=== PATIENT | male | born 1960 | race Caucasian/White ===

== ENCOUNTER 2019-12-28 13:31 | Outpatient (CLI) | payer OTHER, SELFPAY ==
--- NOTE | ~2019-12-28 | XR_ITS ---
EXAMINATION: XR knee LT min 4V DATE: 12/28/2019 14:09 INDICATION: Left knee pain. TECHNIQUE: 4 views of left knee were obtained. COMPARISON: Left knee radiographs 12/23/2016 FINDINGS: There is varus angulation at the knee. There is lateral subluxation of patella. No fracture . There is severe osteoarthritis of medial compartment and mild osteoarthritis of lateral and patello femoral compartments. There is a small knee joint effusion. IMPRESSION: 1. Severe left knee osteoarthritis. 2. Small left knee joint effusion. Reviewed, dictated and finalized at location A. 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
--- NOTE | ~2019-12-28 | XR_ITS ---
EXAMINATION: XR knee RT min 4V DATE: 12/28/2019 14:10 INDICATION: Right knee pain. TECHNIQUE: 4 views of right knee were obtained. COMPARISON: Right knee radiographs 07/10/2016 FINDINGS: There is varus angulation at the knee. There is lateral subluxation of patella. No fracture . There is severe osteoarthritis of medial compartment and mild osteoarthritis of lateral and patello femoral compartments. No knee joint effusion. IMPRESSION: 1. Severe right knee osteoarthritis. Reviewed, dictated and finalized at location A. RVISOR INSPECTION
== END 2019-12-28 13:32 | disposition home or self-care (01) ==
LOC: CHSIMG 13:34
PROVIDERS: PCP Internal Medicine; Visit Provider Internal Medicine
DX: M25.562 Pain in left knee (principal); M25.561 Pain in right knee
CPT/HCPCS: 73564

== ENCOUNTER 2020-01-15 16:50 | Emergency (ER) | payer OTHER, SELFPAY ==
--- NOTE | ~2020-01-15 | CT_ITS ---
EXAMINATION: CT brain wo con DATE: 01/15/2020 17:33 INDICATION: Head injury with loss of consciousness TECHNIQUE: Computed tomography (CT) of the head was performed without intravenous contrast. Sagittal and coronal reconstructions were performed. The mA was adjusted according to patient size. Iterative reconstruction technique was employed. The dose-length product was 605.33 mGy-cm. COMPARISON: head CT dated 04/11/2017 FINDINGS: Large right frontal temporal scalp hematoma with associated laceration along its anterior margin and small amount of gas in the soft tissues. No fracture. No acute intracranial hemorrhage, acute infarct ion or abnormal extra axial fluid collection. Ventricles are normal and symmetric. No mass/mass effec t. The orbits, paranasal sinuses and mastoid air cells are normal. IMPRESSION: 1. Right frontal temporal scalp laceration and large scalp hematoma. 2. No calvarial fracture or acute intracranial process. Reviewed, dictated and finalized at location A. 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
--- NOTE | 2020-01-15 17:04 | ED.HEATRA ---
HPI - Head Injury General Chief complaint: Wound/Laceration Stated complaint: Head laceration Time Seen by Provider: 01/15/20 17:04 Source: patient and family Mode of arrival: ambulatory Limitations: no limitations History of Present Illness HPI Narrative: 59-year-old man comes in today complaining of a laceration on the right side of his scalp that occurred after he fell this morning and struck his head on a cabinet. He states that happened between 6 and 8:00 a.m. any loss consciousness. The fall was unwitnessed. He has had no nausea, vomiting, changes in his vision, difficulty walking, or change in speech since his injury. MD Complaint: head injury Onset (ago): hour(s) (10) Mechanism of Injury: fall Place: home Loss of Consciousness: yes Location of injury: parietal and temporal Severity: moderate Quality: sharp Radiation: none Other Injuries: laceration Context: recent alcohol use Associated symptoms: denies other symptoms Related Data Home Medications Medication Instructions Recorded Confirmed lisinopril-hydrochlorothiazide 0.5 tablet PO HS 01/15/20 01/15/20 lisinopril-hydrochlorothiazide 1 tablet PO QAM 01/15/20 01/15/20 meloxicam 15 mg PO DAILY 01/15/20 01/15/20 potassium chloride [Klor-Con M20] 60 meq PO DAILY 01/15/20 01/15/20 rosuvastatin 20 mg PO DAILY 01/15/20 01/15/20 Allergies Allergy/AdvReac Type Severity Reaction Status Date / Time No Known Allergies Allergy Verified 01/15/20 17:30 Review of Systems Constitutional: Constitutional: Denies chills, Denies fatigue, Denies fever(s) and Denies weakness ENT: Denies dysphagia, Denies nasal congestion and Denies sore throat Cardiovascular: Cardiovascular: Denies chest pain and Denies radiating jaw, neck or arm pain Respiratory: Respiratory: Denies cough, Denies dyspnea and Denies wheezing Gastrointestinal: Gastrointestinal: Denies abdominal pain, Denies nausea and Denies vomiting Integumentary/Breasts: Skin/Breast: Denies pruritus, Denies erythema and Denies rash Neurologic: Denies confusion, Denies vertigo, Denies dizziness, Denies syncope, Denies numbness and Denies weakness Psychiatric: Psychiatric: Denies anxiety and Denies depression Hematologic/Lymphatic: Hematologic/Lymphatic: Denies easy bleeding and Denies easy bruising Allergic/Immunologic: Allergic/Immunologic: Denies lip swelling and Denies wheezing PMF Past Medical History Medical History Dyslipidemia Hypertension Surgical History Surgical History History of total left hip arthroplasty S/P left knee arthroscopy Social History Social History Smoking status: Never smoker Alcohol intake: current Alcohol use details: Drank a few beers last night Substance use: never Living arrangements: with family Exam Const: General: no acute distress and alert Nutritional Appearance: obese Orientation/consciousness: patient oriented x3 Limitations: no limitations HENMT: Ears: TM's normal bilaterally and EAC's normal Mouth: Yes moist mucous membranes Throat: posterior oropharynx normal Eyes: Conjunctivae: conjunctivae normal Pupils: Equal, round and reactive pupils present EOM: EOMs intact bilaterally Direct Ophthalmoscopy: No photophobia Neck: Other: Nontender, NROM Resp: Effort & Inspection: normal respiratory effort and not labored Auscultation: clear to auscultation bilaterally, no rales, no rhonchi and no wheezes Cardio: Rate: regular rate Rhythm: regular rhythm Heart sounds: no murmurs GI: GI Palp: Yes Soft to palpation and No Tenderness to palpation present (GI) Skin: General skin exam: normal color, no jaundice and no pallor Rashes: no rashes Other: 9 cm arcuate full thickness laceration over the right synagogue. Consideral swelling inferior to the laceration, up to 2 cm thick. Mildy t
[2020-01-15 17:25] VITALS: BP 142/86; PULSE 104; RESP 18; TEMP 37.1; O2SAT 96
[2020-01-15] MEDS: TETANUS,DIPHTHERIA,AC PERTUSSIS ADULT 0.5 ML (ADACEL) IM (17:40)
[2020-01-15 18:21] VITALS: BP 138/94; PULSE 85; RESP 16; O2SAT 96
== END 2020-01-15 18:21 | disposition home or self-care (01) ==
PROVIDERS: Emergency Provider Emergency Medicine; PCP Internal Medicine
DX: S06.9X9A Unspecified intracranial injury with loss of consciousness of unspecified duration, initial encounter (principal); S01.01XA Laceration without foreign body of scalp, initial encounter; W18.30XA Fall on same level, unspecified, initial encounter
CPT/HCPCS: 12004; 70450; 90471; 90715; 99282; 99284

== ENCOUNTER 2020-05-17 13:01 | Outpatient (RCR) | payer OTHER, SELFPAY ==
--- NOTE | 2020-05-17 13:45 | PTOPEVAL ---
Thank you for referring Chaparro Bwoen to [facility]. Please review, sign, date and return this plan of care KHADRA. I agree with and certify that the following plan of care is medically necessary. Referring Physician Date Admitting Provider: Attending Provider: PHYSICIAN NOT ON STAFF Referring Provider: *PT Outpatient Evaluation Start: 05/17/20 13:00 Freq: Status: Active Protocol: Document 05/17/20 13:00 [facility] (Rec: 05/17/20 13:24 [facility] [id number]) Therapy Assessment Status Assessment Status Assessment Status Evaluation Outpatient Past Medical History Cardiovascular History Hx Hypercholesterolemia Yes Hx Hypertension Yes Musculoskeletal History Hx Joint Replacement Yes: left hip Hx Orthopedic Surgery Yes Evaluation Information Problem Diagnosis s/p L TKA Onset 04/20/20 Additional Evaluation Detail LEFS = 22% functionally declined Subjective Information patient reports he underwent L Query Text:As Reported By Patient/ knee replacement on 04/20/20. Family he reports he did this due to pain and arthritis affecting his daily activities such as walking and work. he reports he is having the R knee replaced next. he reports he has no date set yet. Prior Level of Function Comments Additional Prior Level of Function patient reports he was limping Comments prior to surgery. he reports he was off from work for several months prior to surgery due to pain in the knees. he reports he is planning to get back to work after both knees are replaced. Pain Assessment Timing of Pain Assessment Timing of Pain Assessment Assessment Pain Scale Pain Scale Used Numeric (1 - 10) Self Report Pain Assessment Left Knee(s) Reported Pain Level 3 Pain Description Aching,Sharp Lowest Pain Intensity 2 Greatest Pain Intensity 9 Pain Aggravating Factors Exercise/Activity,Walking Pain Score Pain Score 3: Self Report Lower Extremity Range of Motion Knee Range of Motion Left Knee Flexion Range of Motion - Active 78 Knee Extension Range of Motion - Active -10 Query Text: Right Knee Flexion Range of Motion - Active 110 Knee Extension Range of Motion - Active 0 Query Text: Lower Extremity Muscle Strength Testing Hip Strength Left
--- NOTE | 2020-06-15 09:51 | PTOPEVAL ---
Thank you for referring Chaparro Bowen to [facility]. Please review, sign, date and return this plan of care KHADRA. I agree with and certify that the following plan of care is medically necessary. Referring Physician Date Admitting Provider: Attending Provider: PHYSICIAN NOT ON STAFF Referring Provider: *PT Outpatient Evaluation Start: 05/17/20 13:00 Freq: Status: Active Protocol: Document 06/15/20 09:11 [facility] (Rec: 06/15/20 09:35 [facility] [id number]) Therapy Assessment Status Assessment Status Assessment Status Discharge Outpatient Past Medical History Cardiovascular History Hx Hypercholesterolemia Yes Hx Hypertension Yes Musculoskeletal History Hx Joint Replacement Yes: left hip Hx Orthopedic Surgery Yes Evaluation Information Problem Diagnosis s/p left TKA Onset 04/20/20 Subjective Information Pt. reports that he has Query Text:As Reported By Patient/ returned to driving. He Family states that pain is minimal and only really notes pain with bending the knee during exercise. He states that he will undergo right TKA in July. He states that he will continue with exercise and is ready for discharge. Pain Assessment Pain Scale Pain Scale Used Numeric (1 - 10) Self Report Pain Assessment Left Knee(s) Reported Pain Level 1 Lowest Pain Intensity 1 Greatest Pain Intensity 2 Pain Score Pain Score 1: Self Report Lower Extremity Range of Motion General Lower Extremity Range of Motion Gross Lower Extremity Range of Motion left knee AROM=0-115 Comments left knee AAROM=0-120 Lower Extremity Muscle Strength Testing General Lower Extremity Strength Gross Lower Extremity Strength bilateral hip flexion 5/5, bilateral knee flexion 5/5, bilateral knee extension 5/5, bilateral ankle dorsiflexion 5 /5 Gait Assessment Gait Assessment Additional Ambulation Comments Pt. ambulates indpendently over level surface with equal right and left stance time noted. Stair Climbing Assessment Stair Climbing Assessment Stair Climbing Comments Pt. is able to navigate steps with reciprical pattern, with slight hesitation on the right . PT Clinical Summary Clinical Summary Protocol: PTEV
== END 2020-06-15 10:28 | disposition home or self-care (01) ==
LOC: CHSPT 13:01
PROVIDERS: PCP Internal Medicine
DX: Z96.652 Presence of left artificial knee joint (principal)
CPT/HCPCS: 97016; 97110; 97140; 97161

== ENCOUNTER 2020-07-25 07:36 | Outpatient (RCR) | payer OTHER, SELFPAY ==
--- NOTE | 2020-07-25 09:25 | PTOPEVAL ---
Thank you for referring Chaparro Bowen to [facility].? The patient is scheduled to be seen for therapy? ____x/week for ___ weeks. Please review, sign, date and return this plan of care KHADRA. I agree with and certify that the following plan of care is medically necessary. Referring Physician Date Admitting Provider: Attending Provider: PHYSICIAN NOT ON STAFF Referring Provider: *PT Outpatient Evaluation Start: 07/25/20 08:01 Freq: Status: Active Protocol: Document 07/25/20 08:00 [facility] (Rec: 07/25/20 08:55 [facility] [id number]) Therapy Assessment Status Assessment Status Assessment Status Evaluation Outpatient Past Medical History Cardiovascular History Hx Hypercholesterolemia Yes Hx Hypertension Yes Musculoskeletal History Hx Joint Replacement Yes: left hip Hx Orthopedic Surgery Yes Evaluation Information Problem Diagnosis right TKA Onset 07/18/20 Subjective Information Pt. reports that he underwent Query Text:As Reported By Patient/ TKA on 07/18/20. He states that Family this replacement has been more painful. He states that he is having trouble sleeping at night. He states that he is using his walker and is not driving. He reports that his goal is to regain normal right l.e. function. 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 Right Activity of Daily Living Ability Independent Indoor/Home Mobility Independent Community Mobility Independent Stairs Ability Independent Functional Cognition (Planning, Shopping Independent , Taking Medications) Cooking Yes Cleaning Yes Laundry Yes Shopping Yes Driving Yes Pain Assessment Pain Scale Pain Scale Used Numeric (1 - 10) Self Report Pain Assessment Right Knee(s) Reported Pain Level 7 Pain Score Pain Score 7: Self Report Lower Extremity Range of Motion General Lower Extremity Range of Motion Gross Lower Extremity Range of Motion right knee AROM= 6-77 degrees Comments left knee AROM= 0-115 degrees Lower Extremity Muscle Strength Testing General Lower Extremity Strength Gross Lower Extremity Strength right hip flexion 4/5, left hip flexion 5/5, right knee flexion 3+/5, left knee flexion 5/5, right knee
--- NOTE | 2020-08-18 08:54 | PTOPEVAL ---
Thank you for referring Chaparro Bowen to [facility].? The patient is scheduled to be seen for therapy? _2___x/week for 6 visits. Please review, sign, date and return this plan of care KHADRA. I agree with and certify that the following plan of care is medically necessary. Referring Physician Date Admitting Provider: Attending Provider: PHYSICIAN NOT ON STAFF Referring Provider: *PT Outpatient Evaluation Start: 07/25/20 08:01 Freq: Status: Active Protocol: Document 08/18/20 07:36 [facility] (Rec: 08/18/20 08:53 [facility] [id number]) Therapy Assessment Status Assessment Status Assessment Status Progress Outpatient Past Medical History Cardiovascular History Hx Hypercholesterolemia Yes Hx Hypertension Yes Musculoskeletal History Hx Joint Replacement Yes: left hip Hx Orthopedic Surgery Yes Evaluation Information Problem Diagnosis right TKA Onset 07/18/20 Subjective Information Pt. reports that he is walking Query Text:As Reported By Patient/ without an AD. He has Family returned to driving. He states that he still notes stiffness in the right knee. He reports he still notes difficulty with long periods of standing and squatting activities. He reports that he would like to continue with PT in order to improve his ability to bend the knee. Pain Assessment Pain Scale Pain Scale Used Numeric (1 - 10) Self Report Pain Assessment Right Knee(s) Reported Pain Level 3 Pain Score Pain Score 3: Self Report Lower Extremity Range of Motion General Lower Extremity Range of Motion Gross Lower Extremity Range of Motion right knee AROM 0-107 Comments Extremity Circumference Assessment Circumference Assessment Location Right Body Part Knee Site Descriptor (Ursina) joint line Circumference (cm) 48 Gait Assessment Gait Assessment Additional Ambulation Comments Pt. ambulates without an AD demonstrating slightly decreased right stance time with slight right trendelenburg. Stair Climbing Assessment Stair Climbing Assessment Stair Climbing Comments Pt. ascends steps with reciprical pattern, however descending steps remains difficult due to trouble with
== END 2020-09-11 13:23 | disposition home or self-care (01) ==
LOC: CHSPT 07:36
PROVIDERS: PCP Internal Medicine
DX: Z47.1 Aftercare following joint replacement surgery (principal); Z96.651 Presence of right artificial knee joint
CPT/HCPCS: 97014; 97016; 97110; 97161; G0283

== ENCOUNTER 2020-11-10 09:13 | Emergency (ER) | payer OTHER, SELFPAY ==
[2020-11-10 09:20] VITALS: BP 128/74; PULSE 80; RESP 20; TEMP 36.3; O2SAT 98
--- NOTE | 2020-11-10 09:29 | ED_ITS ---
HPI - Wound/Laceration General Chief Complaint: Wound/Laceration Stated Complaint: laceration on finger Time Seen by Provider: 11/10/20 09:25 Source: patient and family Mode of arrival: ambulatory Limitations: no limitations Related Data Home Medications Medication Instructions Recorded Confirmed lisinopril-hydrochlorothiazide 0.5 tablet PO HS 01/15/20 01/15/20 lisinopril-hydrochlorothiazide 1 tablet PO QAM 01/15/20 01/15/20 meloxicam 15 mg PO DAILY 01/15/20 01/15/20 potassium chloride [Klor-Con M20] 60 meq PO DAILY 01/15/20 01/15/20 rosuvastatin 20 mg PO DAILY 01/15/20 01/15/20 Allergies Allergy/AdvReac Type Severity Reaction Status Date / Time No Known Allergies Allergy Verified 01/15/20 17:30 [facility] Past Medical History Medical History Dyslipidemia Hypertension Surgical History Surgical History History of total left hip arthroplasty S/P left knee arthroscopy Social History Social History Smoking status: Never smoker Alcohol intake: current Substance use: never Course Vital Signs Vital signs: Vital Signs Temperature 36.3 C L 11/10/20 09:20 Pulse Rate 80 11/10/20 09:20 Respiratory Rate 20 11/10/20 09:20 Blood Pressure 128/74 11/10/20 09:20 Pulse Oximetry 98 11/10/20 09:20 Temperature 36.3 C L 11/10/20 10:32 Pulse Rate 80 11/10/20 10:32 Respiratory Rate 20 11/10/20 10:32 Blood Pressure 130/75 11/10/20 10:32 Pulse Oximetry 98 11/10/20 10:32 Procedures Laceration laceration to left posterior thumb: Date: 11/10/20 Time: 09:30 Side (If applicable): left Size (cm): 2 Description: linear and clean Depth: simple, single layer Local Anesthetic: lidocaine 1% Amount of anesthesia used (mL): 6 ====== Skin Level ====== Skin layer closed with: nylon Size (cm): 4-0 Technique: simple, interrupted ====== Subcutaneous Layer ====== Subcutaneous layer closed with: vicryl Size: 4-0 Number of sutures: 6 Technique: simple, interrupted ====== Muscle Layer ====== ====== Tendon Layer ====== Dressing: Wound was pretty superficial and required only a one layer closure. Discharge Plan Discharge Clinical Impression: Laceration Patient Disposition: Home, Self-Care Condition: Stable Instructions: Antibiotic Form Additional Instructions: Follow up with family doctor in 10 days for suture removal Prescriptions: No Action meloxicam 15 mg tablet 15 mg PO DAILY RF: 0 potassium chloride [Klor-Con M20] 20 mEq tablet,ER particles/crystals 60 meq PO DAILY RF: 0 lisinopril-hydrochlorothiazide 20-25 mg tablet 1 tablet PO QAM RF: 0 lisinopril-hydrochlorothiazide 20-25 mg tablet 0.5 tablet PO HS RF: 0 rosuvastatin 20 mg tablet 20 mg PO DAILY RF: 0 Follow-up/Referrals: Ninfa Farmer MD [Primary Care Provider] - Time of Disposition: 09:30
[2020-11-10] MEDS: LIDOCAINE HCL 1% LOCAL INJ 20 ML VIAL 6 ML INFILTRATE (10:31)
[2020-11-10 10:32] VITALS: BP 130/75; PULSE 80; RESP 20; TEMP 36.3; O2SAT 98
[2020-11-10] MEDS: NEOMYCIN/POLYMYXIN/BACITRACIN OINTMENT PACKET 1 PACKET (10:32)
== END 2020-11-10 10:40 | disposition home or self-care (01) ==
PROVIDERS: Emergency Provider Emergency Medicine; PCP Internal Medicine
DX: S61.012A Laceration without foreign body of left thumb without damage to nail, initial encounter (principal); E78.5 Hyperlipidemia, unspecified; I10 Essential (primary) hypertension; W26.0XXA Contact with knife, initial encounter; Z96.642 Presence of left artificial hip joint
CPT/HCPCS: 12001; 12041; 99282

== ENCOUNTER 2022-08-12 14:16 | Outpatient (CLI) | payer OTHER, SELFPAY ==
--- NOTE | ~2022-08-12 | XR_ITS ---
EXAMINATION: XR chest 2V 08/12/2022 14:40 INDICATION: Chest congestion PROCEDURE: 2 view chest COMPARISON: 01/19/2018 FINDINGS: The lungs are clear. The cardiomediastinal silhouette is within normal limits. There are no pleural effusions. There is no pneumothorax suspected. IMPRESSION: 1: NO ACUTE CARDIOPULMONARY DISEASE. Reviewed, dictated and finalized at location B.
[2022-08-12 14:31] LABS: Basophils Absolute Auto 0.06 K/mm3 (0.00-0.10); Basophils Percent Auto 0.5 % (0.0-1.0); Eosinophils Absolute Auto 0.05 K/mm3 (0.02-0.50); Eosinophils Percent Auto 0.4 % (1.0-6.0); Hematocrit 46.3 % (40.0-54.0); Hemoglobin 15.3 g/dL (14.0-18.0); Immature Granulocyte Absolute 0.14 K/mm3 (0.00-0.00); Immature Granulocyte Percent A 1.1 % (0.0-0.0); Lymphocytes Absolute Auto 2.87 K/mm3 (1.10-4.50); Lymphocytes Percent Auto 21.9 % (18.0-42.0); Mean Corpuscular Hemoglobin 27.9 pg (27.0-31.0); Mean Corpuscular Volume 84.5 fL (78.0-102.0); Mean Platelet Volume 10.2 fl (8.7-11.0); Monocytes Percent Auto 6.1 % (2.0-11.0); Neutrophils Absolute Auto 9.2 K/mm3 (1.7-7.2); Platelet Count Result 211 K/mm3 (150-420); Red Blood Count 5.48 M/mm3 (4.70-6.10); Red Cell Distribution Width 13.2 % (11.6-14.4); White Blood Count 13.1 K/mm3 (4.8-10.8)
== END 2022-08-12 14:17 | disposition home or self-care (01) ==
LOC: CHSLAB 14:18
PROVIDERS: PCP Internal Medicine; Visit Provider Internal Medicine
DX: R09.81 Nasal congestion (principal); R09.89 Other specified symptoms and signs involving the circulatory and respiratory systems
CPT/HCPCS: 36415; 71046; 85025

== ENCOUNTER 2023-07-17 13:53 | Outpatient (CLI) | payer OTHER, SELFPAY ==
--- NOTE | ~2023-07-17 | XR_ITS ---
EXAMINATION: XR chest 2V DATE: 07/17/2023 14:14 INDICATION: Cough and congestion TECHNIQUE: PA and lateral views of the chest were obtained. COMPARISON: Chest radiograph dated 08/12/2022 FINDINGS: The lungs remain clear with no focal airspace opacities, pulmonary edema, pleural effusion or pneumot horax. The cardiomediastinal silhouette is normal. Mild thoracic spondylosis. IMPRESSION: 1. No acute cardiopulmonary disease. Reviewed, dictated and finalized at location A.
[2023-07-17 14:07] LABS: Basophils Absolute Auto 0.04 K/mm3 (0.00-0.10); Basophils Percent Auto 0.3 % (0.0-1.0); Eosinophils Absolute Auto 0.04 K/mm3 (0.02-0.50); Eosinophils Percent Auto 0.3 % (1.0-6.0); Hematocrit 43.4 % (40.0-54.0); Hemoglobin 15.2 g/dL (14.0-18.0); Immature Granulocyte Percent A 0.8 % (0.0-0.0); Lymphocytes Absolute Auto 2.74 K/mm3 (1.10-4.50); Lymphocytes Percent Auto 21.8 % (18.0-42.0); Mean Corpuscular Hemoglobin 30.2 pg (27.0-31.0); Mean Corpuscular Volume 86.3 fL (78.0-102.0); Mean Platelet Volume 10.5 fl (8.7-11.0); Monocytes Absolute Auto 0.77 K/mm3 (0.10-0.90); Monocytes Percent Auto 6.1 % (2.0-11.0); Neutrophils Absolute Auto 8.9 K/mm3 (1.7-7.2); Neutrophils Percent Auto 70.7 % (50.0-70.0); Platelet Count Result 203 K/mm3 (150-420); Red Blood Count 5.03 M/mm3 (4.70-6.10); White Blood Count 12.6 K/mm3 (4.8-10.8)
== END 2023-07-17 13:54 | disposition home or self-care (01) ==
LOC: CHSLAB 13:54
PROVIDERS: PCP Internal Medicine; Visit Provider Internal Medicine
DX: R05.9 Cough, unspecified (principal); R09.81 Nasal congestion
CPT/HCPCS: 36415; 71046; 85025

== ENCOUNTER 2023-07-23 11:16 | Outpatient (CLI) | payer OTHER, SELFPAY ==
--- NOTE | ~2023-07-23 | XR_ITS ---
EXAMINATION: XR chest 2V DATE: 07/23/2023 11:37 INDICATION: Shortness of breath TECHNIQUE: Frontal and lateral views of the chest are obtained COMPARISON: 07/17/2023 FINDINGS: A nodule projects along the anterior margin of the upper thoracic spine on the lateral view , possibly the right upper lobe. No pleural effusion or pneumothorax. The cardiomediastinal silhouett e is normal. There is mild thoracic spondylosis. IMPRESSION: 1. Possible right upper lobe nodule. Further evaluation with CT of the chest is recommended. Reviewed, dictated and finalized at location B.
[2023-07-23 11:32] LABS: Basophils Absolute Auto 0.08 K/mm3 (0.00-0.10); Basophils Percent Auto 0.6 % (0.0-1.0); Eosinophils Absolute Auto 0.13 K/mm3 (0.02-0.50); Hematocrit 43.2 % (40.0-54.0); Hemoglobin 14.9 g/dL (14.0-18.0); Immature Granulocyte Absolute 0.24 K/mm3 (0.00-0.00); Immature Granulocyte Percent A 1.9 % (0.0-0.0); Lymphocytes Absolute Auto 4.64 K/mm3 (1.10-4.50); Lymphocytes Percent Auto 37.3 % (18.0-42.0); Mean Corpuscular HGB Conc 34.5 g/dL (32.0-36.0); Mean Corpuscular Volume 86.9 fL (78.0-102.0); Mean Platelet Volume 10.4 fl (8.7-11.0); Monocytes Absolute Auto 0.84 K/mm3 (0.10-0.90); Monocytes Percent Auto 6.8 % (2.0-11.0); Neutrophils Absolute Auto 6.5 K/mm3 (1.7-7.2); Neutrophils Percent Auto 52.4 % (50.0-70.0); Platelet Count Result 185 K/mm3 (150-420); Red Blood Count 4.97 M/mm3 (4.70-6.10); White Blood Count 12.4 K/mm3 (4.8-10.8)
[2023-07-23 11:44] LABS: D Dimer 0.22 mg/L (0.19-0.50)
[2023-07-23 11:53] LABS: Alanine Aminotransferase 20 U/L (16-63); Albumin Level 3.5 g/dL (3.4-5.0); Alkaline Phosphatase 70 U/L (46-116); Anion Gap 5 mmol/L (8-16); Aspartate Amino Transferase 17 U/L (15-37); Bilirubin,Total 0.6 mg/dL (0.00-1.00); Blood Urea Nitrogen 23 mg/dL (7-18); Calcium 9.6 mg/dL (8.5-10.1); Carbon Dioxide 31 mmol/L (21-32); Chloride 102 mmol/L (98-108); Estimated Glomerular Filt Rate > 60; Glucose 108 mg/dL (70-99); NT Pro B Type Natriuretic Pept 66 pg/mL (0-125); Osmolality Calculated 290 mOsm/kg (285-295); Potassium 3.7 mmol/L (3.5-5.1); Sodium 138 mmol/L (136-145); Total Protein 7.1 g/dL (6.4-8.2)
[2023-07-23 12:10] LABS: Influenza A QL RT-PCR Negative (Negative); Influenza B QL RT-PCR Negative (Negative); SARS-CoV-2 RNA PCR Negative (Negative)
== END 2023-07-23 11:17 | disposition home or self-care (01) ==
LOC: CHSLAB 11:17
PROVIDERS: PCP Internal Medicine; Visit Provider Internal Medicine
DX: R06.00 Dyspnea, unspecified (principal); R06.2 Wheezing; R05.9 Cough, unspecified; R91.8 Other nonspecific abnormal finding of lung field
CPT/HCPCS: 36415; 71046; 80053; 83880; 85025; 85380; 87636

== ENCOUNTER 2023-07-28 10:20 | Outpatient (CLI) | payer OTHER, SELFPAY ==
--- NOTE | ~2023-07-28 | CT_ITS ---
EXAMINATION:CT diagnostic chest wo con DATE: 07/28/2023 10:34 INDICATION: Pulmonary nodule. Cough. Dyspnea on exertion. TECHNIQUE: Computed tomography (CT) of the chest was performed without intravenous contrast. Automate d exposure control and iterative reconstruction technique were employed. The dose-length product (DLP ) was 405.14 mGy-cm. COMPARISON: Chest 2 views 07/23/2023 FINDINGS: The lungs demonstrate mild atelectasis. No pleural effusion. The heart size is normal. Ther e are coronary artery calcifications. No pericardial effusion. There is mild bilateral gynecomastia. Calcifications in the spleen are consistent with old granulomatous disease. There are bridging endpla te osteophytes at multiple levels in the spine, consistent with diffuse idiopathic skeletal hyperosto sis (DISH). Prominent spine osteophytes correlate with the chest radiograph finding. IMPRESSION: 1. No pulmonary nodule. Prominent spine osteophytes correlate with the chest radiograph finding. Reviewed, dictated and finalized at location A. IMPRESSION: 1. No pulmonary nodule. Prominent spine osteophytes correlate with the chest ra diograph finding.
== END 2023-07-28 10:21 | disposition home or self-care (01) ==
LOC: CHSIMG 10:21
PROVIDERS: PCP Internal Medicine; Visit Provider Internal Medicine
DX: R91.1 Solitary pulmonary nodule (principal)
CPT/HCPCS: 71250

== ENCOUNTER 2023-08-14 12:49 | Outpatient (CLI) | payer OTHER, SELFPAY ==
--- NOTE | ~2023-08-14 | CT_ITS ---
EXAMINATION: CT sinus wo con DATE: 08/14/2023 13:13 INDICATION: Chronic sinusitis TECHNIQUE: Computed tomography (CT) of the paranasal sinuses was performed without intravenous contra st. The dose-length product was 253.85 mGy-cm. Automated exposure control and iterative reconstructio n technique were employed. COMPARISON: CT dated 01/15/2020 FINDINGS: There is a mucous retention cyst of the right maxillary antrum. No significant mucosal thic kening. Rightward nasal septal deviation. No air-fluid levels. No mucoperiosteal reaction. Mastoids a re pneumatized. IMPRESSION: 1. Small mucous retention cyst right maxillary sinus measuring 1.3 cm. Reviewed, dictated and finalized at location L.
== END 2023-08-14 12:50 | disposition home or self-care (01) ==
LOC: CHSIMG 12:51
PROVIDERS: PCP Internal Medicine; Visit Provider Internal Medicine
DX: J32.9 Chronic sinusitis, unspecified (principal); J34.1 Cyst and mucocele of nose and nasal sinus
CPT/HCPCS: 70486

== ENCOUNTER 2024-03-01 13:01 | Outpatient (RCR) | payer OTHER, SELFPAY ==
--- NOTE | 2024-03-01 13:42 | PTOPEVAL1 ---
Assessment and note entered by Cole Martinez Evaluation Information Assessment Status Evaluation Diagnosis bilateral knee stiffness, imbalance Onset 02/24/24 Subjective Information Pt. reports that he has noticed a recent decline in his balance. He states that he underwent bilateral knee replacement with the last being in July of 2020. He states that he has noticed an inability to get himself off of the floor. He reports that he spends most of the day sitting, but does try to get 6000 steps in daily, and is currently doing so 4-5 days per week. He states that as of 1 year ago he was able to get 6000 step in everyday. He states that he has not had any falls. 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 He reports that he has noticed a feeling of imbalance with changing direction while walking. He reports that he continues to complete his own housework and yardwork despite the unsteadiness. He reports that he is noticing increasing stiffness in the knees as well, and cannot bend down. He reports that his goal for therapy is to improve his balance and improve his knee mobility. Reported Pain Level Pain Score 0: Self Report Assessment PT Clinical Summary Pt. is a 63 year old male who enters the clinic with a diagnosis of bilateral knee stiffness and impaired balance. He presents with impaired proximal l.e. strength, impaired bilateral knee ROM, impaired somatosensory condition and functional decline. Continued skilled PT is indicated in order to improve these areas to allow for improve efficiency and comfort with IADL performance. Plan of Care Interventions Electrical Stimulation,Gait Training,Hot Pack/Cold Pack,Manual Therapy,Neuro Re-education,Patient/ Caregiver Educati,Therapeutic Activities, Therapeutic Exercise PT Services Indicated Yes Treatment Frequency and 2x/week x 10 visits Duration These treatments will address the objective and functional deficits as defined above. The patient will be advanced safely and appropriately in order for the patient to progress towards his/her prior level of function. Additional exercises will be introduced and as well as a comprehensive home exercise program upon discharge, if needed, ?to ensure carryover of functional gains achieved in the clinic. This treatment plan has been reviewed and agreement upon by the patient.
--- NOTE | 2024-03-01 14:09 | OPREHPOC ---
Outpatient Therapy Plan of Care This is a Multidisciplinary Plan of Care that may contain components documented by all disciplines (PT, OT, and ST.) PT Problem 1 PT Problem #1 Knowledge Deficit PT Goal 1 Goal Independent with a HEP addressing strength and mobility sikh Target Visit 2 PT Problem 2 PT Problem #2 Impaired Range of Motion PT Goal 1 Goal -Pt. will demonstrates 120 degrees left knee flexion -Pt. will demonstrates 110 degrees right knee flexion active ROM in order to get on/off the floor. Target Visit 10 PT Problem 3 PT Problem #3 Impaired Strength PT Goal 1 Goal Pt. will present with 5/5 proximal l.e. strength Target Visit 10 PT Problem 4 PT Problem #4 Impaired Functional Mobil PT Goal 1 Goal Pt. will be able to lift 10-20# object from floor to waist with proper mechanics x 10 reps Complete the 5 time sit to stand test in 11 seconds or less indicating improve mobility Target Visit 10
--- NOTE | 2024-04-02 12:31 | OPREHPOC ---
Outpatient Therapy Plan of Care This is a Multidisciplinary Plan of Care that may contain components documented by all disciplines (PT, OT, and ST.) PT Problem 1 PT Problem #1 Knowledge Deficit PT Goal 1 Goal Independent with a HEP addressing strength and mobility confucianism Target Visit 2 Progress Met PT Problem 2 PT Problem #2 Impaired Range of Motion PT Goal 1 Goal -Pt. will demonstrates 120 degrees left knee flexion -Pt. will demonstrates 110 degrees right knee flexion active ROM in order to get on/off the floor. Target Visit 10 Progress Not Met PT Problem 3 PT Problem #3 Impaired Strength PT Goal 1 Goal Pt. will present with 5/5 proximal l.e. strength Target Visit 10 Progress Partially Met PT Problem 4 PT Problem #4 Impaired Functional Mobil PT Goal 1 Goal Pt. will be able to lift 10-20# object from floor to waist with proper mechanics x 10 reps. met Complete the 5 time sit to stand test in 11 seconds or less indicating improve mobility. met Target Visit 10 Progress Met
--- NOTE | 2024-04-02 12:31 | PTOPDC ---
Assessment and note entered by JT File, PT Evaluation Information Assessment Status Discharge Diagnosis bilateral knee stiffness, imbalance Onset 02/24/24 Subjective Information patient reports he feels Better overall. he has no pain. however, he reports his knees are still tight. he reports has been compliant with his exercises at home. Reported Pain Level Pain Score 0: Self Report Assessment PT Clinical Summary mr. patterson presents to skilled PT services for his 10th skilled therapy visit for bilateral knee pain . he presents still with tightness in the bilateral knees, but improved functional lifting and activity performance. he continues to lack achievement of strength and rom goals, but has met HEP, pain, and functional goals. he will be DC'd from skilled PT services today, but was educated to continue HEP exercises at home independent to continue to keep work on rom and strength of the bilateral LE's. Plan of Care PT Services Indicated Yes
== END 2024-04-02 13:55 | disposition home or self-care (01) ==
LOC: CHSPT 13:01
PROVIDERS: PCP Internal Medicine; Visit Provider Internal Medicine
DX: M25.661 Stiffness of right knee, not elsewhere classified (principal); M25.662 Stiffness of left knee, not elsewhere classified; R26.89 Other abnormalities of gait and mobility
CPT/HCPCS: 97110; 97112; 97161

== ENCOUNTER 2025-02-14 13:53 | Outpatient (CLI) | payer OTHER, SELFPAY ==
--- NOTE | ~2025-02-14 | CT_ITS ---
EXAMINATION: CT abdomen pelvis w con DATE: 02/14/2025 14:54 INDICATION: Acute onset left lower quadrant abdominal pain. Hematochezia. TECHNIQUE: Computed tomography (CT) of the abdomen and pelvis was performed with 100 mL Omnipaque-350 intravenous contrast. Automated exposure control and iterative reconstruction technique were employe d. The dose-length product was 1438.79 mGy-cm. COMPARISON: None FINDINGS: Lung bases are clear. Heart size is normal. No pericardial or pleural effusion. Splenic calcification consistent with old granulomatous disease. Diffuse hepatic steatosis with focal sparing along the ga llbladder fossa. 1.8 cm lesion with more nodular appearance located more centrally along the gallblad ibrahima fossa most likely additional focal fatty sparing although could not exclude a small neoplasm such as a hemangioma. Pancreas, bilateral adrenal glands and right kidney are normal. A couple small cyst s in the left kidney the larger measuring 1.4 cm. There are few diverticula along the sigmoid colon w ithout adjacent from trace stranding to suggest diverticulitis. Small bowel and appendix are normal. Bladder is normal. Prostatomegaly measuring 5 x 4 cm. Bilateral small fat-containing inguinal hernias , left greater than right. No free intraperitoneal gas or fluid. No pathologically enlarged abdominal or pelvic lymphadenopathy. Evaluation of the inferior left hemipelvis is supplemented by dense metal lic streak artifact from a left total hip arthroplasty. Moderate to severe lumbar spondylosis. IMPRESSION: 1. Mild sigmoid diverticulosis. No acute intra-abdominal/pelvic process. 2. Diffuse hepatic steatosis with 1.8 cm nodular lesion centrally along the gallbladder fossa most li tereza related to focal fatty sparing although neoplasm cannot be excluded. Consider follow-up with [facility] liver protocol pre and postcontrast MRI or CT. 3. Small bilateral fat-containing inguinal hernias. Reviewed, dictated and finalized at location B. IMPRESSION: 1. Mild sigmoid diverticulosis. No acute intra-abdominal/pelvic process. 2. Diffuse hepatic steatosis with 1.8 cm nodular lesion centrally along the gal lbladder fossa most likely related to focal fatty sparing although neoplasm can not be excluded. Consider follow-up with multiphase liver protocol pre and post contrast MRI or CT. 3. Small bilateral fat-containing inguinal hernias.
[2025-02-14 14:12] LABS: Basophils Absolute Auto 0.04 K/mm3 (0.00-0.10); Basophils Percent Auto 0.5 % (0.0-1.0); Eosinophils Absolute Auto 0.11 K/mm3 (0.02-0.50); Eosinophils Percent Auto 1.4 % (1.0-6.0); Hematocrit 41.9 % (40.0-54.0); Hemoglobin 14.4 g/dL (14.0-18.0); Immature Granulocyte Absolute 0.04 K/mm3 (0.00-0.00); Immature Granulocyte Percent A 0.5 % (0.0-0.0); Mean Corpuscular HGB Conc 34.4 g/dL (32-36); Mean Corpuscular Hemoglobin 29.2 pg (27.0-31.0); Mean Platelet Volume 10.7 fl (8.7-11.0); Monocytes Absolute Auto 0.58 K/mm3 (0.10-0.90); Monocytes Percent Auto 7.5 % (2.0-11.0); Neutrophils Percent Auto 54.1 % (50.0-70.0); Platelet Count Result 196 K/mm3 (150-420); Red Blood Count 4.93 M/mm3 (4.70-6.10); Red Cell Distribution Width 12.9 % (11.6-14.4); White Blood Count 7.8 K/mm3 (4.8-10.8)
[2025-02-14 14:38] LABS: Estimated Glomerular Filt Rate > 60
[2025-02-14 14:39] LABS: Alanine Aminotransferase 42 U/L (16-63); Albumin Level 3.6 g/dL (3.4-5.0); Alkaline Phosphatase 82 U/L (46-116); Anion Gap 7 mmol/L (4-12); Aspartate Amino Transferase 24 U/L (15-37); Bilirubin,Total 0.5 mg/dL (0.00-1.00); Blood Urea Nitrogen 19 mg/dL (7-18); Calcium 9.8 mg/dL (8.5-10.1); Carbon Dioxide 31 mmol/L (21-32); Chloride 102 mmol/L (98-108); Ferritin 820 ng/mL (26-388); Glucose 195 mg/dL (70-99); Iron 82 ug/dL (65-175); Osmolality Calculated 297 mOsm/kg (285-295); Potassium 3.8 mmol/L (3.5-5.1); Sodium 140 mmol/L (136-145); Total Protein 7.4 g/dL (6.4-8.2)
--- OUTSIDE RECORDS SUMMARY | 2025-02-14 15:18 | XMS_ITS | Clinical Summary ---
Author Organization [facility] Address [address] [place] [address] Care Team Providers Care Supervisor Cab Name Role Phone Ninfa Farmer MD Primary Care Provider + [phone] Rubin Maier MD Unavailable [phone] Allergies No known active allergies Medications aspirin 81 mg tabletIndicatio ns:prevention of thrombosis Take 1 tablet (81 mg total) by mouth nightly 10/31/20 17 Active polycarbophil (FIBERCON) 625 mg tabletIndicatio ns:constipation Take 6 tablets (3,750 mg total) by mouth daily Fibercon Takes 4x 625 mg tablets in morning and 2x 625mg tablets at night 10/31/20 17 Active lisinopril-hydr oCHLOROthiazide (PRINZIDE,ZESTO RETIC) 20-25 mg per tabletIndicatio ns:hypertension Take 1 tablet by mouth 2 (two) times a day 0 10/07/20 18 Active rosuvastatin (CRESTOR) 20 mg tabletIndicatio ns:hyperlipidem ia Take 1 tablet (20 mg total) by mouth nightly 0 10/09/20 18 Active multivitamin tablet,chewable Indications:Vit perry Deficiency Prevention Take 1 tablet by mouth collar baster jumpbasting before breakfast Active albuterol HFA (PROVENTIL HFA,VENTOLIN HFA,PROAIR HFA) 90 mcg/actuation inhalerIndicati ons:Bronchospas m Prevention,seas onal allergies Inhale 1 puff every 6 (six) hours as needed for wheezing or shortness of breath 06/01/20 19 Active amLODIPine (NORVASC) 5 mg tabletIndicatio ns:hypertension Take 1 tablet (5 mg total) by mouth every morning 11/07/20 24 Active clotrimazole-be tamethasone (LOTRISONE) creamIndication s:skin irritation Apply 1 Application topically 2 (two) times a day as needed (skin irritation) 11/11/20 24 Active fenofibrate (TRICOR) 54 mg tabletIndicatio ns:hyperlipidem ia Take 1 tablet (54 mg total) by mouth every morning 10/18/20 24 Active fluticasone propionate (FLONASE) 50 mcg/actuation nasal sprayIndication s:Allergic Conjunctivitis, Allergic Rhinitis Administer 2 sprays into each nostril every morning 01/11/20 20 Active tadalafiL (CIALIS) 20 mg tabletIndicatio ns:Erectile Dysfunction Take 1 tablet (20 mg total) by mouth daily as needed for erectile dysfunction 02/04/20 19 Active potassium chloride ER 20 mEq CR tabletIndicatio ns:supplement Take 3 tablets (60 mEq total) by mouth every morning 11/07/20 24 Active cetirizine (ZyrTEC) 10 mg tabletIndicatio ns:Allergic Conjunctivitis, Allergic Rhinitis Take 1 tablet (10 mg total) by mouth every morning Active MAGNESIUM GLYCINATE ORALIndications :hypomagnesemia Take 600 mg by mouth nightly Active melatonin 10 mg tabletIndicatio ns:sleep Take 1 tablet (10 mg total) by mouth nightly Active acetaminophen (TYLENOL) 500 mg tablet Take 2 tablets (1,000 mg total) by mouth every 6 (six) hours as needed for pain 30 tablet 12/08/19 25 Active oxyCODONE (ROXICODONE) 5 mg immediate release tabletIndicatio ns:Pain Take 1 tablet (5 mg total) by mouth every 4 (four) hours as needed for pain 10 tablet 12/08/19 25 Active doxycycline hyclate 100 mg capsuleIndicati ons:Malignant melanoma of left lower extremity (HCC) 12/17/19 25 Active mupirocin (BACTROBAN) 2 % ointmentIndicat ions:Allergic contact dermatitis due to drugs in contact with skin Apply topically 3 (three) times a day Mix with hydrocortisone 2.5% ointment and apply to rash of lower leg until resolved 22 g 3 01/11/20 25 Active hydrocortisone 2.5 % ointmentIndicat ions:Allergic contact dermatitis due to drugs in contact with skin Apply topically 2 (two) times a day Mix with mupirocin 2% ointment and apply to rash on the lower legs twice daily until resolved 30 g 3 01/11/20 25 Active Active Problems Problem Noted Date Diagnosed Date Malignant melanoma of left lower extremity 12/08 Malignant melanoma of left lower extremity inclu ding hip 11/24/2024 Melena 08/30/2020 Overview (08/30/2020): Added automatically from request for surgery [id number] Cervical spinal stenosis 10/30/2018 Headache 12/20/2013 Overview (02/19/2017): Medication overuse headache Encounters Date Type Department Care Team Description 01/11/2025 10:30 AM NUTRITION DIRECTOR Office Visit [facility] Dermatology [address] [place] [address] Floor 6 [place] [address] Heidi Ruiz MD Allergic contact dermatitis due to drugs in contact with skin (Primary Dx); Malignant melanoma of left lower extremity (HCC) 01/07/2025 12:30 PM NUTRITION DIRECTOR Clinical Support [facility] Surgery [address] [place] [address] 5 [place] [address] Lili Romero MD Malignant melanoma of left lower extremity (HCC) (Primary Dx) 12/31/2024 Telephone [facility] Surgery [address] [place] [address] 5 [place] [address] Lottie Ramirez RN 12/31/2024 Orders Only [facility] Surgery [address] [place] [address] 5 [place] [address] Lili Romero MD 12/31/2024 Orders Only [facility] Surgery [address] [place] [address] 5 [place] [address] Lottie Ramirez RN 12/30/2024 Telephone [facility] Surgery [address] [place] [address] 5 [place] [address] Lottie Ramirez RN 12/30/2024 Telephone [facility] Surgery [facility] Floor 8 [place] [address] Lili Romero MD Post-op Problem 12/24/2024 12:45 PM NUTRITION DIRECTOR Office Visit [facility] Surgery [address] [place] [address] Floor 5 [place] [address] Lili Romero MD Malignant melanoma of left lower extremity (HCC) (Primary Dx) 12/20/2024 11:40 AM NUTRITION DIRECTOR Office Visit [facility] Oncology [address] [place] [address] Floor 6 [place] [address] Rubin Maier MD Malignant melanoma of left lower extremity (HCC) 12/17/2024 Telephone [facility] Surgery [address] [place] [address] 8 [place] [address] Lili Romero MD Call Back 12/16/2024 Telephone [facility] Surgery [address] [place] [address] 5 [place] [address] Lili Romero MD 12/08/2024 12:40 PM NUTRITION DIRECTOR - 12/08/2024 2:25 PM NUTRITION DIRECTOR Surgery [facility] [address] [place] [address] Lili Romero MD WIDE EXCISION LEFT LOWER EXTREMITY 12/08/2024 12:36 PM NUTRITION DIRECTOR Anesthesia Event [facility] [address] [place] [address] James Lynn MD Wilkinson, Christina A., NP 12/08/2024 8:19 AM NUTRITION DIRECTOR - 12/08/2024 4:32 PM NUTRITION DIRECTOR Hospital Encounter [facility] [address] [place] [address] Lili Romero MD Malignant melanoma of left lower extremity including hip (HCC) Discharge Disposition: Discharge to home or self care 12/08/2024 6:31 AM NUTRITION DIRECTOR - 12/08/2024 11:59 PM NUTRITION DIRECTOR Hospital Encounter [facility] Radiology [facility] [address] [place] [address] Malignant melanoma of left lower extremity including hip (HCC) Discharge Disposition: Discharge to home or self care 12/06/2024 2:04 PM NUTRITION DIRECTOR - 12/06/2024 11:59 PM NUTRITION DIRECTOR Hospital Encounter [facility] - MRI [address] 8 [place] [address] Malignant melanoma of left lower extremity (HCC) Discharge Disposition: Discharge to home or self care 12/03/2024 7:37 AM NUTRITION DIRECTOR - 12/03/2024 11:59 PM NUTRITION DIRECTOR Hospital Encounter [facility] - PET [address] Floor 8 [place] [address] Discharge Disposition: Discharge to home or self care 12/03/2024 7:37 AM NUTRITION DIRECTOR - 12/03/2024 11:59 PM NUTRITION DIRECTOR Hospital Encounter [facility] - PET [address] [place] [address] Malignant melanoma of left lower extremity (HCC) Discharge Disposition: Discharge to home or self care 12/01/2024 Telephone [facility] Dermatology [address] [facility] [address] [place] [phone] Trev Yates MD PhD stage IV melanoma 11/30/2024 Orders Only [facility] ONCOLOGY Scanning, Provider 11/29/2024 11:15 AM NUTRITION DIRECTOR Lab [facility] - Lab Collection [address] [facility] Floor [address] [place] [address] Malignant melanoma of left lower extremity (HCC) 11/29/2024 11:00 AM NUTRITION DIRECTOR Lab [facility] Oncology Lab [facility] Floor 6 [place] [address] Malignant melanoma of left lower extremity (HCC) 11/29/2024 10:00 AM NUTRITION DIRECTOR Office Visit [facility] Oncology [address] [place] [address] Floor 6 [place] [address] Rubin Maier MD Malignant melanoma of left lower extremity (HCC) (Primary Dx) 11/29/2024 Orders Only [facility] Oncology [address] [place] [address] Floor 6 [place] [address] Rubin Maier MD Malignant melanoma of left lower extremity (HCC) (Primary Dx) 11/26/2024 1:45 PM NUTRITION DIRECTOR Office Visit [facility] Surgery [facility] Floor 5 [place] [address] Lili Romero MD Malignant melanoma of left lower extremity (HCC) 11/24/2024 Telephone [facility] Surgery [facility] Floor 5 [place] [address] Lottie Ramirez RN 11/24/2024 Orders Only [facility] Surgery [facility] 5 [place] [address] Lottie Ramirez RN Malignant melanoma of left lower extremity including hip (HCC) (Primary Dx) from Last 3 Months Immunizations Immunization Administration Dates Next Due Influenza, Quadrivalent, Spl it, Intramuscular 08/30/2015 Influenza, Quadrivalent, Spl it, Preservative Free, Intramuscular 11/03/2019,09/17/2017,12/25/2016 Tdap 01/15/2020,09/05/2010 Surgical History Surgery Date Site/Laterality Comments LUMBAR PUNCTURE WO INJECTION, DIAGNOSTIC 12/29/2013 N/A TX TONSILLECTOMY PRIMARY/SECONDARY <AGE 12 11/17/1966 - 11/16/1967 Tonsillectomy TOTAL HIP ARTHROPLASTY 11/17/2013 - 11/16/2014 Left Hip Replacement COLONOSCOPY 11/17/2023 - 11/16/2024 REPLACEMENT TOTAL KNEE 11/17/2019 - 11/16/2020 Left REPLACEMENT TOTAL KNEE 11/17/2019 - 11/16/2020 Right BIOPSY 09/17/2024 - 10/16/2024 left leg biopsy- local only BIOPSY 08/17/2024 - 09/16/2024 left arm biopsy - local only KNEE ARTHROSCOPY 11/17/2016 - 11/16/2017 Left Medical History Medical History Date Comments Hyperlipidemia Hyperlipidemia Hx Other Medical Headache, migra ine Hypertension Hypertension Family History Medical History Relation Name Comments Cancer Father Cancer; Hypertension Father Hypertension; Stroke Father Stroke; Cancer Mother Cancer; Hypertension Mother Hypertension; Cancer Other Family history of Cancer; Anesthesia problems Neg Hx Relation Name Status Comments Father Mother Other Social History Tobacco Use Types Packs/Day Years Used Date Smoking Tobacco: Former Cigarettes 0.5 20 1 977 - 1996 Vaping Started: 2021 Smokeless Tobacco: Current Snuff Alcohol Use Standard Drinks/Week Comments Yes 0 (1 standard drink = 0.6 oz pur e alcohol) AUDIT-C Answer Date Recorded Q1: How often do you have a drink containing alc ohol? 2-3 times a week 12/08/2024 Q2: How many drinks containi ng alcohol do you have on a typical day when you are drinking? 3 or 4 12/08/2024 Q3: How often do you have si x or more drinks on one occasion? Never 12/08/2024 Personal Safety Answer Date Recorded Have you ever been in or are you currently in a harmful physical or emotional relationship or is someone making you feel afraid or unsafe? Denies 12/08/2024 Sex and Gender Information Value Date Recorded Sex Assigned at Not on file Legal Sex Male 4:49 PM NUTRITION DIRECTOR Gender Identity Not on file Sexual Orientation Not on file Obstetrics History Last Filed Vital Signs Vital Sign Reading Time Taken Comments Blood Pressure 111/70 12/24/2024 12:33 PM NUTRITION DIRECTOR Pulse 65 12/24/2024 12:33 PM NUTRITION DIRECTOR Temperature 36.7 C (98 F) 12/24/2024 12:33 PM NUTRITION DIRECTOR Respiratory Rate 17 12/24/2024 12:3 3 PM NUTRITION DIRECTOR Oxygen Saturation 97% 12/24/2024 12: 33 PM NUTRITION DIRECTOR Inhaled Oxygen Concentration - - Weight 130.7 kg (288 lb 3.2 oz) 025 12:12 PM NUTRITION DIRECTOR Height 177.8 cm (5' 10 ) 01/07/2025 12: 12 PM NUTRITION DIRECTOR Body Mass Index 41.35 01/07/2025 12:12 PM NUTRITION DIRECTOR Plan of Treatment Health Maintenance Due Date Last Done Comments Depression Screening 1960 Hepatitis C Screening 1960 Prostate Cancer Screening-PSA 1960 Hepatitis B Screening 1980 Regular Well Visit/Exam 18-64 1980 Zoster Vaccine (1 of 2) 2012 Influenza Vaccine (#1) 2024 9, 09/17/2017, 12/25/2016, Additional history exists DTaP/Tdap/Td Vaccine (3 - Td or Tdap) 01/14/2030 01/15/2020, 09/05/2010 Colon Cancer Screening-Colonoscopy 09/19/2030 09/19/2020 Colon Cancer Screening-CT Colonography Discontinued 09/19/2020 Colon Cancer Screening-DNA Stool Discontinued 09/19/2020 Colon Cancer Screening-FIT Discontinued 09/19/2020 Colon Cancer Screening-Sigmoidoscopy Discontinued 09/19/2020 Pneumococcal vaccine <65 Aged Out No longer eligible based on patient's age to complete this topic Procedures Procedure Name Priority Date/Time Associated Diagnosis Comments SURGICAL PATHOLOGY Routine 12/08/2024 1: 54 PM NUTRITION DIRECTOR Malignant melanoma of left lower extremity including hip (HCC) ANESTHESIA INTUBATION Routine 12/08/2024 12:49 PM NUTRITION DIRECTOR BIOPSY SENTINEL LYMPH NODE 12/08/2024 12:36 PM NUTRITION DIRECTOR Malignant melanoma of left lower extremity including hip (HCC) Case Notes 11/24 - MISSING [facility]. EMAIL SENT. PADMINI 11/24@1033- Case msg sent to director field services re: no more block time on 12/01- DMF EXCISION CYST/LESION/MASS - LOWER EXTREMITY 12/08/2024 12:36 PM NUTRITION DIRECTOR Malignant melanoma of left lower extremity including hip (HCC) Case Notes 11/24 - MISSING [facility]. EMAIL SENT. PADMINI 11/24@1033- Case msg sent to director field services re: no more block time on 12/01- DMF NM LYMPHOSCINTIGRAPHY (SKIN CANCER) Schedule Routine, Read Routine (OP Routine) 12/08/2024 8:15 AM NUTRITION DIRECTOR Malignant melanoma of left lower extremity including hip (HCC) MRI BRAIN W WO CONTRAST Schedule Routine, Read Routine (OP Routine) 12/06/2024 2:36 PM NUTRITION DIRECTOR Malignant melanoma of left lower extremity (HCC) PET/CT FDG WHOLE BODY Schedule Routine, Read Routine (OP Routine) 12/03/2024 9:31 AM NUTRITION DIRECTOR Malignant melanoma of left lower extremity (HCC) SCAN - PATHOLOGY 11/30/2024 EGFR Routine 11/29/2024 11:15 AM NUTRITION DIRECTOR Malignant melanoma of left lower extremity (HCC) DIFFERENTIAL AUTO Routine 11/29/2024 11:15 AM NUTRITION DIRECTOR Malignant melanoma of left lower extremity (HCC) CBC WITH AUTO DIFFERENTIAL Routine 11/29/2024 11:15 AM NUTRITION DIRECTOR Malignant melanoma of left lower extremity (HCC) COMPREHENSIVE METABOLIC PANEL Routine 11/29/2024 11:15 AM NUTRITION DIRECTOR Malignant melanoma of left lower extremity (HCC) LACTATE DEHYDROGENASE Routine 11/29/2024 11:15 AM NUTRITION DIRECTOR Malignant melanoma of left lower extremity (HCC) THYROID FUNCTION CASCADE Routine 025 11:15 AM NUTRITION DIRECTOR Malignant melanoma of left lower extremity (HCC) TEMPUS XG HEREDITARY CANCER NGS PANEL Routine 11/29/2024 11:06 AM NUTRITION DIRECTOR Malignant melanoma of left lower extremity (HCC) COLONOSCOPY 09/19/2020 11:57 AM NUTRITION DIRECTOR from Last 3 Months or Most Recently Relevant to Health Maintenance Results * Surgical pathology (12/08/2024 1:54 PM NUTRITION DIRECTOR) Tissue (Lymph node, sentinel, NOS) 12/08/2024 1:54 PM NUTRITION DIRECTOR Other (Other) 12/08/2024 2:2 2 PM NUTRITION DIRECTOR Narrative PATHOLOGY [facility] - 12/15/2024 10:31 AM NUTRITION DIRECTOR EPIC results best viewed via link to PDF [facility] [place] [address] Note to Patients: This report may contain a detailed description of human tissue sent by a health care provider to the laboratory for pathologic evaluation. The content of this report is essential for diagnosis and may provide important critical findings. This information may be unfamiliar to patients to review without a medical professional present. It is advised that the patient review this report in the presence of a health care provider who can answer questions and explain the details. SURGICAL PATHOLOGY REPORT FINAL Patient Name: AYLA FORRESTER Gender: M : 1960 (Age: 64) Address: [address] [place], [place] [id number] Hospital #: [id number] Taken:12/08/2024 Received:12/08/2024 Reported: 12/15/2024 Patient Type: [facility] Service: Oncology Location: Physician(s): MD Ninfa Herrera M.D. Diagnosis: A. Lymph node, left groin, sentinel lymph node: No evidence of metastatic melanoma (0/1) Note: MART1 and HMB45 immunohistochemical stains were performed to assess for micrometastatic disease and are negative for metastatic disease. B. Skin, left ankle, excision: Scar from a previous procedure Note: There is no evidence of a neoplasm in these sections. cr/12/14/2024 12:14 By this signature, I attest that the above diagnosis is based upon my personal examination of the slides(and/or other material indicated in the diagnosis). Andra Drake M.D. Report Electronically Reviewed and Signed Out By Andra Drake M.D. 12/15/2024 10:31:28 Microscopic Description and Comment: A. There is a lymph node with normal architecture. B. There is a proliferation of fibroblasts aligned parallel to the skin surface interposed among linearly arranged, thickened collagen bundles and small blood vessels. (L90.5) Microscopic slide review and interpretation for this case was performed at the Dermatopathology Center, Department of Pathology and Immunology, [facility], [address] [place] [address], [address], [place] [address] CLIA # [id number] Jesica Morales M.D. History: The patient is a 64-year-old man with malignant melanoma of left lower extremity including hip. Operative procedure: left lower wide excision and left biopsy sentinel lymph node. Specimen(s) Received: A: Lymph node, left groin, sentinel lymph node B: Skin, left ankle, excision Gross Description: Received in two formalin jars labeled with the patient's identifiers. A. Labeled left groin sentinel lymph node , is a putative lymph node (3.8 x 2.2 x 1.5 cm) with crumbled adipose tissue. The putative lymph node is serially sectioned and has a bhat, solid/pale yellow, fibrofatty cut surface. The putative lymph node is entirely submitted in cassettes A1-A3. Jar 1. B. Labeled wide local excision left ankle melanoma short stitch superior, long stitch lateral , is a skin ellipse (8.2 x 2.7 cm; 0.2 cm in depth) with adipose tissue (9.0 x 3.7 x 2.5 cm) and two unremarkable adipose tissue fragments (2.5-2.8 cm in GD). The skin is bhat with blue dye discoloration and a central white-pedro scab-like lesion (1.5 x 0.5 x 0.4 cm) with punctate brown-pedro ulceration (0.1 x 0.1 x 0.1 cm). The lesion is > 0.5 cm from the skin margin. The ellipse is inked black-superior/lateral/inferior, blue-inferior/medial/superior. The ellipse is serially sectioned from [id number]. The lesion has a brown-orange, homogenous cut surface and grossly abuts the dermis but is >0.5 cm from the deep margin. The adipose tissue cut surface is grossly unremarkable. Photographs are provided. The ellipse is entirely submitted sequentially in cassettes B1 (superior margin, en face), B2 (inferior margin, en face), and B3-B18 (B9-B14 lesion; B10 stitch). Jar 1. behu/12/09/2024 10:01 PA(s): Anika Jenkins MS, JODY(ASCP)CM By this signature, I attest that the above diagnosis is based upon my personal examination of the slides(and/or other material). Addenda/Procedures The performance characteristics of some immunohistochemical stains, fluorescence in-situ hybridization tests and immunophenotyping by flow cytometry cited in this report (if any) were determined by the Surgical Pathology and Flow Cytometry Departments at [facility] as part of an ongoing supplier quality manager program and in compliance with federally mandated regulations drawn from the Clinical Laboratory Improvement Act of 1988 (CLIA '88). Some of these tests rely on the use of analyte specific reagents and are subject to specific labeling requirements by the US Food and Drug Administration. Such diagnostic tests may only be performed in a facility that is certified by the Department of Health and Human Services as a high complexity laboratory under CLIA '88. The FDA has determined that such clearance or approval is not necessary. This test is used for clinical purposes. It should not be regarded as investigational or for research. Nevertheless, federal rules concerning the medical use of analyte specific reagents require that the following disclaimer be attached to the report: This test was developed and its performance characteristics determined by the Surgical Pathology and Flow Cytometry Departments of [facility]. It has not been cleared or approved by the U. S. Food and Drug Administration. IMAGES AND SCANNED DOCUMENTS, IF INCLUDED, ONLY VIEWABLE IN PDF VERSION OF REPORT us Lili Romero MD LAB PATHOLOGY ORDERABLES Final R esult PATHOLOGY [facility] 3rd Floor [place], [place] [phone] * Airway (12/08/2024 12:49 PM NUTRITION DIRECTOR) Narrative Philomena Fry MD - 12/08/2024 12:49 PM NUTRITION DIRECTOR Philomena Fry MD 12/08/2024 12:50 PM Airway Patient location: OR Urgency: elective Indications for airway management: anesthesia Difficult airway: no Staff: Supervising provider: James Lynn MD Placed by: Resident: Philomena Fry MD Emergent airway documentation: Risks and benefits discussed: yes Consent obtained: yes Consent given by: patient Airway prep: Preoxygenated: yes Patient position: sniffing Mask difficulty assessment: 0 - not attempted Spontaneous ventilation during airway: absent Sedation level during airway: GA Final airway details: Final airway type: endotracheal airway Tube type: ETT ETT size: 8.0 mm Cuffed: yes Technique used for successful ETT placement: video laryngoscopy Devices/Methods used in placement: stylet Insertion site: oral Blade type: Karol Video blade type: Black Blade size: 4 Cormack-Lehane (direct): grade I - full view of glottis Cuff volume: 10 mL Cuff inflated with: air ETT to lips: 25 cm Placement verified by: auscultation and CO2 detection Airway secured with: silk tape Number of attempts: 1 us James Lynn MD ANESTHESIA ORDERABLES Final Result * NM Lymphoscintigraphy (Skin Cancer) (12/08/2024 8:15 AM NUTRITION DIRECTOR) Anatomical Region Laterality Modality N/A Nuclear Medicine 12/08/2024 10:1 2 AM NUTRITION DIRECTOR Impressions 12/08/2024 10:53 AM NUTRITION DIRECTOR [place] node(s) identified as described above for subsequent intraoperative removal with gamma probe guidance. Dictated by: Leon Edgar MD The radiology attending physician has personally reviewed this study, and had reviewed and/or edited this written report and agrees with it. Electronically signed by: Mckinley Lezama M.D. Narrative 12/08/2024 10:53 AM NUTRITION DIRECTOR EXAMINATION: LYMPHOSCINTIGRAPHY DATE OF STUDY: 12/08/2024 RADIOPHARMACEUTICAL: 514.05 microcuries Tc-99m Tilmanocept intradermally HISTORY: 64-year-old man with left lower extremity melanoma, presenting for sentinel lymph node evaluation. TECHNIQUE: The tracer was injected intradermally around the biopsy-proven lesion in the distal left lower extremity by Dr. Lezama. FINDINGS: Dynamic images were obtained for 20 minutes after injection of tracer. Delayed images of the pelvis and thighs were obtained beginning at 20 minutes after injection in anterior and posterior projections. Tracer activity is visualized in the lymphatic channel extending from the left lower leg at the injection site to the left medial thigh. Intense jael uptake is seen in 2 nodes located in the left inguinal region. Excreted tracer activity is seen in the urinary bladder. There is expected intense uptake at the site of injection. Procedure Note Mckinley Lezama MD - 12/08/2024 EXAMINATION: LYMPHOSCINTIGRAPHY DATE OF STUDY: 12/08/2024 RADIOPHARMACEUTICAL: 514.05 microcuries Tc-99m Tilmanocept intradermally HISTORY: 64-year-old man with left lower extremity melanoma, presenting for sentinel lymph node evaluation. TECHNIQUE: The tracer was injected intradermally around the biopsy-proven lesion in the distal left lower extremity by Dr. Lezama. FINDINGS: Dynamic images were obtained for 20 minutes after injection of tracer. Delayed images of the pelvis and thighs were obtained beginning at 20 minutes after injection in anterior and posterior projections. Tracer activity is visualized in the lymphatic channel extending from the left lower leg at the injection site to the left medial thigh. Intense jael uptake is seen in 2 nodes located in the left inguinal region. Excreted tracer activity is seen in the urinary bladder. There is expected intense uptake at the site of injection. IMPRESSION: [place] node(s) identified as described above for subsequent intraoperative removal with gamma probe guidance. Dictated by: Leon Edgar MD The radiology attending physician has personally reviewed this study, and had reviewed and/or edited this written report and agrees with it. Electronically signed by: Mckinley Lezama M.D. Lili Romero MD IMG NM PROCEDURES Final Result * MRI Brain W WO Contrast (12/06/2024 2:36 PM NUTRITION DIRECTOR) Anatomical Region Laterality Modality Head and Neck N/A Magnetic Resonan ce 12/06/2024 3:27 PM NUTRITION DIRECTOR Impressions 12/06/2024 3:58 PM NUTRITION DIRECTOR No evidence of intracranial metastatic disease. Dictated by: Cole Trujillo MD The radiology attending physician has personally reviewed this study, and had reviewed and/or edited this written report and agrees with it. Electronically signed by: Ayden Andrade MD Narrative 12/06/2024 3:58 PM NUTRITION DIRECTOR EXAMINATION: Magnetic resonance imaging (MRI) of the brain and brainstem without and with contrast HISTORY: Metastatic melanoma TECHNIQUE: Multiplanar multi-weighted MRI of the brain and brainstem was performed without and with intravenous contrast using the general brain protocol. Contrast information: 20 mL Gadoterate Meglumine COMPARISON: None Available. FINDINGS: No abnormal enhancement is identified. No abnormal diffusion restriction or elevated cerebral blood volume. The scalp and calvarium are normal. The superior sagittal sinus demonstrates normal venous flow. The corpus callosum is normal in shape and signal intensity. The posterior fossa is unremarkable. The pituitary and sella are normal. The brainstem and craniocervical junction are unremarkable. Very mild T2/FLAIR hyperintensities in the periventricular and subcortical white matter likely represent small vessel ischemic change. Diffusion weighted images reveal no hyperintensities to suggest acute cerebral infarction. The susceptibility weighted sequences reveal no evidence of acute or chronic hemorrhage. The ventricles are normal in size and position without evidence of hydrocephalus. The paranasal sinuses are normal. The visualized portions of the mastoids are unremarkable. The orbits appear normal. Normal flow voids are demonstrated in the carotid arteries and basilar artery. Focal dural calcification near the apex (image 20 of series 18). Procedure Note Ayden Andrade MD PhD - 12/06/2024 EXAMINATION: Magnetic resonance imaging (MRI) of the brain and brainstem without and with contrast HISTORY: Metastatic melanoma TECHNIQUE: Multiplanar multi-weighted MRI of the brain and brainstem was performed without and with intravenous contrast using the general brain protocol. Contrast information: 20 mL Gadoterate Meglumine COMPARISON: None Available. FINDINGS: No abnormal enhancement is identified. No abnormal diffusion restriction or elevated cerebral blood volume. The scalp and calvarium are normal. The superior sagittal sinus demonstrates normal venous flow. The corpus callosum is normal in shape and signal intensity. The posterior fossa is unremarkable. The pituitary and sella are normal. The brainstem and craniocervical junction are unremarkable. Very mild T2/FLAIR hyperintensities in the periventricular and subcortical white matter likely represent small vessel ischemic change. Diffusion weighted images reveal no hyperintensities to suggest acute cerebral infarction. The susceptibility weighted sequences reveal no evidence of acute or chronic hemorrhage. The ventricles are normal in size and position without evidence of hydrocephalus. The paranasal sinuses are normal. The visualized portions of the mastoids are unremarkable. The orbits appear normal. Normal flow voids are demonstrated in the carotid arteries and basilar artery. Focal dural calcification near the apex (image 20 of series 18). IMPRESSION: No evidence of intracranial metastatic disease. Dictated by: Cole Trujillo MD The radiology attending physician has personally reviewed this study, and had reviewed and/or edited this written report and agrees with it. Electronically signed by: Ayden Andrade MD Rubin Maier MD IM MRI PROCEDURES Final Resul t * PET/CT FDG Whole Body (12/03/2024 9:31 AM NUTRITION DIRECTOR) Anatomical Region Laterality Modality Body N/A Positron Emissio n Tomography (PET) 12/03/2024 10:5 2 AM NUTRITION DIRECTOR Impressions 12/03/2024 11:45 AM NUTRITION DIRECTOR 1. No PET/CT evidence of residual/recurrent or distant metastatic disease. 2. Mildly hypermetabolic subcutaneous nodule within the posterior midline scalp vertex (image 8) is favored to be infectious or inflammatory, however recommend correlation with physical examination. Dictated by: Wali Reddy MD The radiology attending physician has personally reviewed this study, and had reviewed and/or edited this written report and agrees with it. Electronically signed by: Mckinley Lezama M.D. Narrative 12/03/2024 11:45 AM NUTRITION DIRECTOR EXAMINATION: TUMOR FDG-PET/CT IMAGING DATE OF STUDY: 12/03/2024 SCANNER: [facility] Jenn Rykert (SQ1). This is a high-resolution scanner, which can result in higher SUVs (and even detection of new small lesions) compared to older scanners. RADIOPHARMACEUTICAL: 11 mCi F-18 Fluorodeoxyglucose (FDG) i.v. Injection site: Right antecubital fossa HISTORY: 64-year-old male with newly diagnosed malignant melanoma of the left lower extremity diagnosed via skin biopsy. Breslow depth of 1.4 mm. The study is requested for initial staging. Initial treatment strategy. TECHNIQUE: The patient's fasting blood glucose level, measured by glucometer before injection of FDG, was 1.5 mg/dL. After intravenous administration of FDG, noncontrast CT images were obtained for attenuation correction and for fusion with emission PET images to allow for anatomical localization of PET findings. Emission PET images were then obtained. The study was interpreted on the marshallindex workstation. The mean liver SUV (reported for quality engineer medical device purposes) is 3.2. The total scanned area was skull vertex to toes. Images of the body were obtained starting 55 minutes after injection of tracer. All reported SUVs are maximum SUVs, unless otherwise specified. COMPARISON: None available DESCRIPTORS OF LESION FDG AVIDITY: Minimal: <= blood pool Mild: > blood pool and <= liver Moderate: > liver and <= 2x SUVmax liver Moderate to marked: >2x SUVmax liver and <= 3x SUVmax liver Marked: > 3x SUVmax liver FINDINGS: Mildly hypermetabolic skin thickening in the skin overlying the mid left tibia may represent the biopsied site of malignancy. Mildly hypermetabolic focus in the posterior scalp vertex (image 9). Degenerative pattern of uptake in both shoulders. Focal uptake associated with the left maxillary incisor periapical lucency which is favored to be infectious/inflammatory. Additional CT findings: Right maxillary sinus mucosal retention cyst. Dental restorations. Atherosclerotic calcification of carotid bifurcations. Coronary atherosclerotic calcifications. Atherosclerotic calcifications of aorta. Faint groundglass opacities in the upper lobes bilaterally may represent sequela of prior infection or inflammation. Layering sludge or tiny gallstones within the gallbladder. Splenic granulomas. Left renal cyst. Punctate nonobstructing right renal stone. 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 Bilateral total knee arthroplasties. Left total hip arthroplasty. Multilevel degenerative changes in the spine. Procedure Note Mckinley Lezama MD - 12/03/2024 EXAMINATION: TUMOR FDG-PET/CT IMAGING DATE OF STUDY: 12/03/2024 SCANNER: [facility] Jenn Rykert (SQ1). This is a high-resolution scanner, which can result in higher SUVs (and even detection of new small lesions) compared to older scanners. RADIOPHARMACEUTICAL: 11 mCi F-18 Fluorodeoxyglucose (FDG) i.v. Injection site: Right antecubital fossa HISTORY: 64-year-old male with newly diagnosed malignant melanoma of the left lower extremity diagnosed via skin biopsy. Breslow depth of 1.4 mm. The study is requested for initial staging. Initial treatment strategy. TECHNIQUE: The patient's fasting blood glucose level, measured by glucometer before injection of FDG, was 1.5 mg/dL. After intravenous administration of FDG, noncontrast CT images were obtained for attenuation correction and for fusion with emission PET images to allow for anatomical localization of PET findings. Emission PET images were then obtained. The study was interpreted on the marshallindex workstation. The mean liver SUV (reported for quality engineer medical device purposes) is 3.2. The total scanned area was skull vertex to toes. Images of the body were obtained starting 55 minutes after injection of tracer. All reported SUVs are maximum SUVs, unless otherwise specified. COMPARISON: None available DESCRIPTORS OF LESION FDG AVIDITY: Minimal: <= blood pool Mild: > blood pool and <= liver Moderate: > liver and <= 2x SUVmax liver Moderate to marked: >2x SUVmax liver and <= 3x SUVmax liver Marked: > 3x SUVmax liver FINDINGS: Mildly hypermetabolic skin thickening in the skin overlying the mid left tibia may represent the biopsied site of malignancy. Mildly hypermetabolic focus in the posterior scalp vertex (image 9). Degenerative pattern of uptake in both shoulders. Focal uptake associated with the left maxillary incisor periapical lucency which is favored to be infectious/inflammatory. Additional CT findings: Right maxillary sinus mucosal retention cyst. Dental restorations. Atherosclerotic calcification of carotid bifurcations. Coronary atherosclerotic calcifications. Atherosclerotic calcifications of aorta. Faint groundglass opacities in the upper lobes bilaterally may represent sequela of prior infection or inflammation. Layering sludge or tiny gallstones within the gallbladder. Splenic granulomas. Left renal cyst. Punctate nonobstructing right renal stone. 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 Bilateral total knee arthroplasties. Left total hip arthroplasty. Multilevel degenerative changes in the spine. IMPRESSION: 1. No PET/CT evidence of residual/recurrent or distant metastatic disease. 2. Mildly hypermetabolic subcutaneous nodule within the posterior midline scalp vertex (image 8) is favored to be infectious or inflammatory, however recommend correlation with physical examination. Dictated by: Wali Reddy MD The radiology attending physician has personally reviewed this study, and had reviewed and/or edited this written report and agrees with it. Electronically signed by: Mckinley Lezama M.D. Rubin Maier MD IMG PET PROCEDURES Final Resul t * SCAN - PATHOLOGY (11/30/2024) us Provider Scanning Final Result * eGFR (11/29/2024 11:15 AM NUTRITION DIRECTOR) eGFR >90 >=60 mL/min/1. 73 m2 Comment: Interpretive Data Reference Interval Normal >/= 90 mL/min/1.73m2 Mildly decreased* 60 - 89 mL/min/1.73m2 Mildly to moderately decreased 45 - 59 mL/min/1.73m2 Moderately to severely decreased 30 - 44 mL/min/1.73m2 Severely decreased 15 - 29 mL/min/1.73m2 Kidney Failure < 15 mL/min/1.73m2 *Relative to young adult level Estimated glomerular filtration rate is determined by the 2020 CKD-EPI equation recommended by the National Kidney Foundation (A Unifying Approach to GFR Estimation: Recommendations of the NKF-ASK Task Force on Reassessing the Inclusion of Race in Diagnosing Kidney Disease, JASN 202). The CKD-EPI equation should not be used for patients with unstable renal function and has not been validated in children and those over 70. Current interpretive data was last reviewed 2021. Blood 11/29/2024 11:1 5 AM NUTRITION DIRECTOR 11/29/2024 11:25 AM NUTRITION DIRECTOR us Rubin Maier MD LAB BLOOD ORDERABLES Final Res ult [facility] Department of Laboratories [place] [id number] * Differential, auto (11/29/2024 11:15 AM NUTRITION DIRECTOR) Neutrophil abs 4.1 1.5 - 6.5 K/cumm Comment:Testing performed by : [facility], [address] [place] [phone] Lymphocyte abs 2.8 0.8 - 3.3 K/cumm CERNER BJ Comment:Testing performed by : [facility], [address] [place], [place] [phone] Monocyte abs 0.6 0.2 - 0.8 K/cumm CERRUPINDER BJ Comment:Testing performed by : [facility], [address] [place] [phone] Eosinophil abs 0.1 0.0 - 0.5 K/cumm CERRUPINDER BJ Comment:Testing performed by : [facility], [address] [place] [phone] Basophil abs 0.1 0.0 - 0.1 K/cumm CERNER BJ Comment:Testing performed by : [facility], [address] [place] [phone] Neutrophil pct 53.7 % CERNER BJ Comment: Interpretive Data Percent cell count reference ranges are not reported, since discordance with absolute values may lead to misinterpretation of CBC data. Current Interpretive Data was last revised on 2018. Testing performed by: [facility], [address] [place] [phone] Lymphocyte pct 36.8 % CERNER BJ Comment: Interpretive Data Percent cell count reference ranges are not reported, since discordance with absolute values may lead to misinterpretation of CBC data. Current Interpretive Data was last revised on 2018. Testing performed by: [facility], [address] [place] [phone] Monocyte pct 7.5 % CERNER BJ Comment: Interpretive Data Percent cell count reference ranges are not reported, since discordance with absolute values may lead to misinterpretation of CBC data. Current Interpretive Data was last revised on 2018. Testing performed by: [facility], [address] [place] [phone] Eosinophil pct 1.3 % RAMON NERI Comment: Interpretive Data Percent cell count reference ranges are not reported, since discordance with absolute values may lead to misinterpretation of CBC data. Current Interpretive Data was last revised on 2018. Testing performed by: [facility], [address] [place] [phone] Basophil pct 0.7 % RAMON NERI Comment: Interpretive Data Percent cell count reference ranges are not reported, since discordance with absolute values may lead to misinterpretation of CBC data. Current Interpretive Data was last revised on 2018. Testing performed by: [facility], [address] [place] [phone] Blood 11/29/2024 11:1 5 AM NUTRITION DIRECTOR 11/29/2024 11:23 AM NUTRITION DIRECTOR us Rubin Maier MD LAB BLOOD ORDERABLES Final Res ult Performing Organization Address City/[facility]/ZIP Co de Phone Number [facility] [place] [address] * Thyroid Function [place] (11/29/2024 11:15 AM NUTRITION DIRECTOR) TSH 0.62 0.30 - 4.20 mcIUnit/mL Blood 11/29/2024 11:1 5 AM NUTRITION DIRECTOR 11/29/2024 11:25 AM NUTRITION DIRECTOR us Rubin Maier MD LAB BLOOD ORDERABLES Final Res ult Performing Organization Address City/[facility]/ZIP Co de Phone Number [facility] Department [place] [address] * CBC with auto differential (11/29/2024 11:15 AM NUTRITION DIRECTOR) Pathologist [facility] WBC 7.7 3.8 - 9.9 K/cumm Comment:Testing performed by : [facility], [address] [place], [place] [phone] Hgb 14.9 13.0 - 17.5 g/dL CERNER BJ Comment:Testing performed by : [facility], [address] [place], [place] [phone] Hct 44.5 38.9 - 50.3 % CERNER BJ Comment:Testing performed by : [facility], [address] [place], [place] [phone] Plt 200 150 - 400 K/cumm CERNER BJ Comment:Testing performed by : [facility], [address] [place], [place] [phone] MPV 8.9 6.8 - 10.4 fL CERNER BJ Comment:Testing performed by : [facility], [address] [place], [place] [phone] RBC 5.21 4.30 - 5.80 M/cumm CERNER BJ Comment:Testing performed by : [facility], [address] [place], [place] [phone] MCV 85.4 81.3 - 96.4 fL CERNER BJ Comment:Testing performed by : [facility], [address] [place], [place] [phone] MCH 28.7 27.1 - 33.3 pg CERNER BJ Comment:Testing performed by : [facility], [address] [place] [address] MCHC 33.5 32.3 - 35.7 g/dL CERNER BJ Comment:Testing performed by : [facility], [address] [place] [address] RDW CV 13.7 11.1 - 14.9 % CERNER BJ Comment:Testing performed by : [facility], [address] [place] [address] NRBC abs 0.00 0.00 - 0.01 K/cumm CERNER BJ Comment:Testing performed by : [facility], [address] [place] [phone] Blood 11/29/2024 11:1 5 AM NUTRITION DIRECTOR 11/29/2024 11:23 AM NUTRITION DIRECTOR Rubin Maier MD LAB BLOOD ORDERABLES Final Res ult Performing Organization Address City/[facility]/ZIP Co de Phone Number [facility] [place] [address] * Lactate dehydrogenase (LD) (11/29/2024 11:15 AM NUTRITION DIRECTOR) Lactate dehydrogenase (LDH) 132 100 - 250 Units/L Blood 11/29/2024 11:1 5 AM NUTRITION DIRECTOR 11/29/2024 11:25 AM NUTRITION DIRECTOR Rubin Maier MD LAB BLOOD ORDERABLES Final Res ult Performing Organization Address [facility] Co de Phone Number [facility] [place] [address] * (ABNORMAL) Comprehensive metabolic panel (11/29/2024 11:15 AM NUTRITION DIRECTOR) Pathologist [facility] Sodium 141 135 - 145 mmol/L Potassium, pl 4.9 3.3 - 4.9 mmol/L [facility] Chloride 102 97 - 110 mmol/L [facility] CO2 32 22 - 32 mmol/L [facility] Anion gap 7 2 - 15 mmol/L [facility] BUN 17 6 - 25 mg/dL [facility] Creatinine 0.69(L) 0.80 - 1.30 mg/dL [facility] Glucose 137 70 - 199 mg/dL [facility] Comment: Interpretive Data Fasting glucose >/= 126 mg/dl is diagnostic for diabetes. Fasting is defined as no caloric intake for at least 8 hours. Fasting glucose between 100 mg/dl to 125 mg/dl is diagnostic of prediabetes. In a patient with classic symptoms of hyperglycemia or hyperglycemic crisis, a random glucose >/= 200 mg/dl is diagnostic for diabetes. In the absence of unequivocal hyperglycemia, results should be confirmed by repeat testing. The classification and Diagnosis of Diabetes Diabetes Care 2021; 46: S19-S40. Current interpretive data was last revised 2022. Calcium 10.8(H) 8.5 - 10.3 mg/dL CERNER BJ Bilirubin, total 0.5 0.1 - 1.2 mg/dL CERNER BJ Protein, pl 7.6 6.5 - 8.5 g/dL CERNER BJ Albumin 4.3 3.5 - 5.0 g/dL CERNER [facility] Alk phos 71 40 - 130 Units/L [facility] ALT 25 7 - 55 Units/L [facility] AST 22 10 - 50 Units/L CERNER [facility] Blood 11/29/2024 11:1 5 AM NUTRITION DIRECTOR 11/29/2024 11:25 AM NUTRITION DIRECTOR Rubin Maier MD LAB BLOOD ORDERABLES Final Res ult Performing Organization Address City/[facility]/ZIP Co de Phone Number [facility] [place] [address] * [facility] Hereditary Cancer NGS Panel, Blood (11/29/2024 11:06 AM NUTRITION DIRECTOR) Pathologist [facility] Please review the PDF for results. 12/08/2024 2:07 PM NUTRITION DIRECTOR [facility] Comment:[facility] link Blood specimen (specimen) 11/29/2024 11:06 AM NUTRITION DIRECTOR 12/08/2024 2:11 PM NUTRITION DIRECTOR Rubin Maier MD LAB GENETIC TESTING Final Resu lt [facility] [address] [facility], [address] [place], [place] [id number] [place] [address] [facility] [address] [facility], [address] [place] [address] * COLONOSCOPY (09/19/2020 11:57 AM NUTRITION DIRECTOR) Anatomical Region Laterality Modality Other Narrative Procedure Note Jaden Barry MD - 09/19/2020 11:57 AM CST [facility] Patient Name: Ayla Forrester Procedure Date: 09/19/2020 11:57 AM Date of : 1960 Admit Type: Outpatient Age: 60 Gender: Male Attending MD: Jaden Barry M.D. Room: [facility] ENDOSCOPY ROOM 1 Note Status: Finalized Patient Profile: This is a 60 year old male. Patient had recentepisodes of her bleeding per rectum. No family history ofcolon cancer. Colonoscopy for evaluation Procedure: Colonoscopy Indications: Last colonoscopy 5 years ago, Rectal bleeding Referring MD: Ninfa Farmer MD Providers: Jaden Barry M.D. Impression: - The entire examined colon is normal overall. - Diverticulosis in the sigmoid colon and in the descending colon. - Internal hemorrhoids. Likely source of rectal bleeding. - No specimens collected. Recommendation: - Repeat colonoscopy in 10 years for screeningpurposes. - Continue present medications. - Take fiber supplements daily. Medicines: Monitored Anesthesia Care Complications: No immediate complications. Estimated Blood Loss: Estimated blood loss: none. Procedure: Pre-Anesthesia Assessment: - Prior to the procedure, a History and Physical was performed, and patient medications and allergieswere reviewed. The patient's tolerance of previous anesthesia was also reviewed. The risks and benefitsof the procedure and the sedation options and riskswere discussed with the patient. All questions were answered, and informed consent was obtained. Prior Anticoagulants: The patient has taken no previous anticoagulant or antiplatelet agents. ASA Grade Assessment: II - A patient with mild systemicdisease. After reviewing the risks and benefits, the patientwas deemed in satisfactory condition to undergo the procedure. The benefits, risks and alternatives of theprocedure and sedation were discussed and informed consent was obtained. All questions were answered. Please referto the signed informed consent document in the medical record. Bowel prep was administered using a splitdose. The bowel preparation used was Miralax. The bowel preparation used was bisacodyl tablets. The scopewas passed under direct vision. The PediatricColonoscope [id number] was introduced through the anusand advanced to the the cecum, identified by appendiceal orifice and ileocecal valve. The quality of thebowel preparation was excellent. Findings: The perianal and digital rectal examinations were normal. The cecum appeared normal. The colon (entire examined portion) appeared normal. No polyps and no mass lesions noted. Scattered small-mouthed diverticula were found in the sigmoid colonand descending colon. Internal hemorrhoids were found during retroflexion. The hemorrhoids were medium-sized. Electronically signed by Jaden Barry M.D. Jaden Barry M.D. 09/19/2020 1:42:01 PM Number of Addenda: 0 Note Initiated On: 09/19/2020 11:57 AM Procedure Code(s): --- Professional --- 67007, Colonoscopy, flexible; diagnostic, including collection of specimen(s) by brushing or washing, when performed (separateprocedure) Diagnosis Code(s): --- Professional --- K64.8, Other hemorrhoids K62.5, Hemorrhage of anus and rectum K57.30, Diverticulosis of large intestine without perforation orabscess without bleeding CPT copyright 2017 [employer]. All rights reserved. The codes documented in this report are preliminary and upon label coder reviewmay be revised to meet current compliance requirements. Recognized by the [employer] for promoting quality in endoscopy Jaden Barry MD ENDOSCOPY PROCEDURES Final Result from Last 3 Months or Most Recently Relevant to Health Maintenance Insurance [facility] [id number] [facility] Member Subscriber Plan / Payer (Ef fective 2019-Present) Name:Ayla Forrester Relation to Subscriber:Self Name:Ayla Forrester Payer ID:[id number] Type:[employer] HMO/PPO Address: [address] [place] [id number] [employer] OPEN ACCESS [facility] [id number] Advance Directives For more information, please contact: [phone] * Full Code (Latest Code Status on File) Date Activated Date Inactivated Comments 09/19/2020 11:56 AM 09/19/2020 6:24 PM Care Teams Supervisor Cab Relationship Specialty Start Date End Date Ninfa Farmer MD [address] [place] [address] PCP - General 12/20/13 Rubin Maier MD [address] [facility], [address] [place] [address] Medical Oncologist/Biological Science Aide Medical Oncology 11/15/24
--- OUTSIDE RECORDS SUMMARY | 2025-02-14 15:18 | XMS_ITS | Encounter Summary ---
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 2-3 times a week 11/25/2024 Q2: How many drinks containi ng alcohol do you have on a typical day when you are drinking? 3 or 4 11/25/2024 Q3: How often do you have si x or more drinks on one occasion? 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 Gender Identity Not on file Sexual Orientation Not on file documented as of this encounter Plan of Treatment Not on file documented as of this encounter Procedures Procedure Name Priority Date/Time Associated Diagnosis Comments SCAN - PATHOLOGY 11/30/2024 documented in this encounter Results * SCAN - PATHOLOGY (11/30/2024) us Provider Scanning Final Result documented in this encounter Visit Diagnoses Not on filedocumented in this encounter Care Teams Ornamental Iron Worker Relationship Specialty Start Date End Date Ninfa Farmer MD [address] [place], [place] [id number] PCP - General 12/20/13 Rubin Maier MD [address] [facility], [address] [place] [address] Medical Oncologist/[place] Measurer Medical Oncology 11/15/24 documented as of this encounter
--- OUTSIDE RECORDS SUMMARY | 2025-02-14 15:18 | XMS_ITS | Clinical Summary ---
Author Organization [facility] Address [facility] [place] [address] Care Team Providers Care Marketing Liaison Name Role Phone Unavailable Primary Care Provider Unavailabl e Social History Tobacco Use Types Packs/Day Years Used Date Smoking Tobacco: Never Assessed Sex and Gender Information Value Date Recorded Sex Assigned at Not on file Legal Sex Male 6:48 PM CDT Gender Identity Not on file Sexual Orientation Not on file Plan of Treatment Health Maintenance Due Date Last Done Comments Colorectal Cancer Screening Colonoscopy (10 Years) 1962 Annual Physical 1965 Hepatitis C 1980 DTaP, Tdap and Td Vaccines ( 1 - Tdap) 1981 Zoster Vaccines (1 of 2) 2012 COVID-19 Vaccine ( - 2023-2 5 season) 2024 RSV Immunization or 60+ Years (1 - 1-dose 75+ series) 2037 Meningococcal B Vaccine Aged Out No l onger eligible based on patient's age to complete this topic Meningococcal Vaccine Aged Out No alfonso brock eligible based on patient's age to complete this topic Pneumococcal Vaccine: Pediat rics (0 to 5 Years) and At-Risk Patients (6 to 64 Years) Aged Out No longer eligible b ased on patient's age to complete this topic RSV Immunizations Under 20 Months Aged Out No longer eligible based on patient's age to complete this topic
--- OUTSIDE RECORDS SUMMARY | 2025-02-14 15:18 | XMS_ITS | Referral Summary ---
Author Organization [facility] Address [address] [place] [address] Care Team Providers Care Senior Power Scheduler Name Role Phone Ninfa Farmer MD Primary Care Provider [phone] Rubin Maier MD Unavailable [phone] Encounters Date Type Department Care Team Description 01/11/2025 10:30 AM PHOTOGRAMMETRIST Office Visit [facility] Dermatology [address] [place] [address] Floor 6 [place] [phone] Heidi Ruiz MD Allergic contact dermatitis due to drugs in contact with skin (Primary Dx); Malignant melanoma of left lower extremity (HCC) 01/07/2025 12:30 PM PHOTOGRAMMETRIST Clinical Support [facility] Surgery [address] [place] [address] 5 [place] [phone] Lili Romero MD Malignant melanoma of left lower extremity (HCC) (Primary Dx) 12/31/2024 Telephone [facility] Surgery [address] [place] [address] 5 [place] [address] Lottie Ramirez RN 12/31/2024 Orders Only [facility] Surgery [address] [place] [address] 5 [place] [address] Lili Romero MD 12/31/2024 Orders Only [facility] Surgery [address] [place] [address] 5 [place] [address] Lottie Ramirez RN 12/30/2024 Telephone [facility] Surgery [address] [place] [address] 5 [place] [address] Lottie Ramirez RN 12/30/2024 Telephone [facility] Surgery [address] [place] [address] Floor 8 [place] [address] Lili Romero MD Post-op Problem 12/24/2024 12:45 PM PHOTOGRAMMETRIST Office Visit [facility] Surgery [address] [place] [address] Floor 5 [place] [address] Lili Romero MD Malignant melanoma of left lower extremity (HCC) (Primary Dx) 12/20/2024 11:40 AM PHOTOGRAMMETRIST Office Visit [facility] Oncology [address] [place] [address] Floor 6 [place] [phone] Rubin Maier MD Malignant melanoma of left lower extremity (HCC) 12/17/2024 Telephone [facility] Surgery [address] [place] [address] Floor 8 [place] [address] Lili Romero MD Call Back 12/16/2024 Telephone [facility] Surgery [address] [place] [address] Floor 5 [place] [address] Lili Romero MD 12/08/2024 6:31 AM PHOTOGRAMMETRIST - 12/08/2024 11:59 PM PHOTOGRAMMETRIST Hospital Encounter [facility] ([facility]) [address] [place] [phone] Malignant melanoma of left lower extremity including hip (HCC) Discharge Disposition: Discharge to home or self care 12/08/2024 12:40 PM PHOTOGRAMMETRIST - 12/08/2024 2:25 PM PHOTOGRAMMETRIST Surgery [facility] Operating [facility] ([facility]) [address] [place] [address] Lili Romero MD WIDE EXCISION LEFT LOWER EXTREMITY 12/08/2024 12:36 PM PHOTOGRAMMETRIST Anesthesia Event [facility] Operating Room [facility] ([facility]) [address] [place] [address] James Lynn MD Wilkinson, Christina A., NP 12/08/2024 8:19 AM PHOTOGRAMMETRIST - 12/08/2024 4:32 PM PHOTOGRAMMETRIST Hospital Encounter [facility] Operating [facility] ([facility]) [address] [place] [address] Lili Romero MD Malignant melanoma of left lower extremity including hip (HCC) Discharge Disposition: Discharge to home or self care 12/06/2024 2:04 PM PHOTOGRAMMETRIST - 12/06/2024 11:59 PM PHOTOGRAMMETRIST Hospital Encounter [facility] - MRI [address] Floor 8 [place] [address] Malignant melanoma of left lower extremity (HCC) Discharge Disposition: Discharge to home or self care 12/03/2024 7:37 AM PHOTOGRAMMETRIST - 12/03/2024 11:59 PM PHOTOGRAMMETRIST Hospital Encounter [facility] - PET [address] Floor 8 [place] [address] Discharge Disposition: Discharge to home or self care 12/03/2024 7:37 AM PHOTOGRAMMETRIST - 12/03/2024 11:59 PM PHOTOGRAMMETRIST Hospital Encounter [facility] - PET [address] Floor 8 [place] [address] Malignant melanoma of left lower extremity (HCC) Discharge Disposition: Discharge to home or self care 12/01/2024 Telephone [facility] Dermatology [address] [facility] [address] [place] [phone] Trev Yates MD PhD stage IV melanoma 11/30/2024 Orders Only [facility] ONCOLOGY Scanning, Provider 11/29/2024 11:15 AM PHOTOGRAMMETRIST Lab [facility] - Lab Collection [address] [facility] Floor 6 [place] [address] Malignant melanoma of left lower extremity (HCC) 11/29/2024 11:00 AM PHOTOGRAMMETRIST Lab [facility] Oncology Lab [address] [place] [address] Floor 6 [place] [address] Malignant melanoma of left lower extremity (HCC) 11/29/2024 Orders Only [facility] Oncology [address] [place] [address] Floor 6 [place] [address] Rubin Maier MD Malignant melanoma of left lower extremity (HCC) (Primary Dx) 11/29/2024 10:00 AM PHOTOGRAMMETRIST Office Visit [facility] Oncology [address] [place] [address] Floor 6 [place] [address] Rubin Maier MD Malignant melanoma of left lower extremity (HCC) (Primary Dx) 11/26/2024 1:45 PM PHOTOGRAMMETRIST Office Visit [facility] Surgery [facility] Floor 5 [place] [address] Lili Romero MD Malignant melanoma of left lower extremity (HCC) 11/24/2024 Telephone [facility] Surgery [facility] 5 [place] [address] Lottie Ramirez RN 11/24/2024 Orders Only [facility] Surgery [facility] 5 [place] [address] Lottie Ramirez RN Malignant melanoma of left lower extremity including hip (HCC) (Primary Dx) from Last 3 Months Allergies No known active allergies Medications aspirin [...] Deficiency Prevention Take 1 tablet by mouth bingo checker before breakfast Active albuterol HFA (PROVENTIL HFA,VENTOLIN [...] (08/30/2020): Added automatically from request for surgery [id number] Cervical spinal stenosis 10/30/2018 Headache 12/20/2013 Overview (02/19/2017): Medication overuse headache Immunizations Immunization Administration Dates Next Due Influenza, Quadrivalent, Spl it, Intramuscular 08/30/2015 Influenza, Quadrivalent, Spl it, Preservative Free, Intramuscular 11/03/2019,09/17/2017,12/25/2016 Tdap 01/15/2020,09/05/2010 Social History Tobacco Use Types Packs/Day Years [...] on file Legal Sex Male 4:49 PM PHOTOGRAMMETRIST Gender Identity Not on file Sexual Orientation Not on file Last Filed Vital Signs Vital Sign Reading Time Taken Comments Blood Pressure 111/70 12/24/2024 12:33 PM PHOTOGRAMMETRIST Pulse 65 12/24/2024 12:33 PM PHOTOGRAMMETRIST Temperature 36.7 C (98 F) 12/24/2024 12:33 PM PHOTOGRAMMETRIST Respiratory Rate 17 12/24/2024 12:3 3 PM PHOTOGRAMMETRIST Oxygen Saturation 97% 12/24/2024 12: 33 PM PHOTOGRAMMETRIST Inhaled Oxygen Concentration - - Weight 130.7 kg (288 lb 3.2 oz) 025 12:12 PM PHOTOGRAMMETRIST Height 177.8 cm (5' 10 ) 01/07/2025 12: 12 PM PHOTOGRAMMETRIST Body Mass Index 41.35 01/07/2025 12:12 PM PHOTOGRAMMETRIST Plan of Treatment Not on file Procedures Procedure Name Priority Date/Time Associated Diagnosis Comments SURGICAL PATHOLOGY Routine 12/08/2024 1: 54 PM PHOTOGRAMMETRIST Malignant melanoma of left lower extremity including hip (HCC) ANESTHESIA INTUBATION Routine 12/08/2024 12:49 PM PHOTOGRAMMETRIST BIOPSY SENTINEL LYMPH NODE 12/08/2024 12:36 PM PHOTOGRAMMETRIST Malignant melanoma of left lower extremity including hip (HCC) Case Notes 11/24 - MISSING DPC. EMAIL SENT. PADMINI 11/24@1033- Case msg sent to epic beacon analyst re: no more block time on 12/01- DMF EXCISION CYST/LESION/MASS - LOWER EXTREMITY 12/08/2024 12:36 PM PHOTOGRAMMETRIST Malignant melanoma of left lower extremity including hip (HCC) Case Notes 11/24 - MISSING DPC. EMAIL SENT. PADMINI 11/24@1033- Case msg sent to epic beacon analyst re: no more block time on 12/01- DMF NM LYMPHOSCINTIGRAPHY (SKIN CANCER) Schedule Routine, Read Routine (OP Routine) 12/08/2024 8:15 AM PHOTOGRAMMETRIST Malignant melanoma of left lower extremity including hip (HCC) MRI BRAIN W WO CONTRAST Schedule Routine, Read Routine (OP Routine) 12/06/2024 2:36 PM PHOTOGRAMMETRIST Malignant melanoma of left lower extremity (HCC) PET/CT FDG WHOLE BODY Schedule Routine, Read Routine (OP Routine) 12/03/2024 9:31 AM PHOTOGRAMMETRIST Malignant melanoma of left lower extremity (HCC) SCAN - PATHOLOGY 11/30/2024 EGFR Routine 11/29/2024 11:15 AM PHOTOGRAMMETRIST Malignant melanoma of left lower extremity (HCC) DIFFERENTIAL AUTO Routine 11/29/2024 11:15 AM PHOTOGRAMMETRIST Malignant melanoma of left lower extremity (HCC) CBC WITH AUTO DIFFERENTIAL Routine 11/29/2024 11:15 AM PHOTOGRAMMETRIST Malignant melanoma of left lower extremity (HCC) COMPREHENSIVE METABOLIC PANEL Routine 11/29/2024 11:15 AM PHOTOGRAMMETRIST Malignant melanoma of left lower extremity (HCC) LACTATE DEHYDROGENASE Routine 11/29/2024 11:15 AM PHOTOGRAMMETRIST Malignant melanoma of left lower extremity (HCC) THYROID FUNCTION CASCADE Routine 025 11:15 AM PHOTOGRAMMETRIST Malignant melanoma of left lower extremity (HCC) TEMPUS XG HEREDITARY CANCER NGS PANEL Routine 11/29/2024 11:06 AM PHOTOGRAMMETRIST Malignant melanoma of left lower extremity (HCC) COLONOSCOPY 09/19/2020 11:57 AM PHOTOGRAMMETRIST from Last 3 Months or Most Recently Relevant to Health Maintenance Results * Surgical pathology (12/08/2024 1:54 PM PHOTOGRAMMETRIST) Tissue (Lymph node, sentinel, NOS) 12/08/2024 1:54 PM PHOTOGRAMMETRIST Other (Other) 12/08/2024 2:2 2 PM PHOTOGRAMMETRIST Narrative PATHOLOGY [facility] - 12/15/2024 10:31 AM PHOTOGRAMMETRIST EPIC results best viewed via link to PDF [facility] [place] [address] Note to Patients: This report may contain [...] Gender: M : 1960 (Age: 64) Address: [address] [place] [address] Hospital #: [id number] Taken:12/08/2024 Received:12/08/2024 Reported: 12/15/2024 [facility] Location: Physician(s): MD Ninfa Herrera [...] Dermatopathology Center, Department of Pathology and Immunology, [facility], [address] [place] [address], [address] # [id number] Jesica Morales M.D. History: The patient is [...] blue-inferior/medial/superior. The ellipse is serially sectioned from [id number]. The lesion has a brown-orange, homogenous cut [...] 1. behu/12/09/2024 10:01 PA(s): Anika Jenkins MS, JODY(ASC)CM By this signature, I attest that the above diagnosis is based upon my personal examination of the slides(and/or other material). Addenda/Procedures The performance characteristics of some immunohistochemical stains, fluorescence in-situ hybridization tests and immunophenotyping by flow cytometry cited in this report (if any) were determined by the Surgical Pathology and Flow Cytometry Departments at [facility] as part of an ongoing air quality technician program and in compliance with federally mandated [...] Surgical Pathology and Flow Cytometry Departments of [facility]. It has not been cleared or approved by the U. S. Food and Drug Administration. IMAGES AND SCANNED DOCUMENTS, IF INCLUDED, ONLY VIEWABLE IN PDF VERSION OF REPORT us Lili Romero MD LAB PATHOLOGY ORDERABLES Final R esult PATHOLOGY [facility] 3rd Floor [place], [place] [phone] * Airway (12/08/2024 12:49 PM PHOTOGRAMMETRIST) Narrative Philomena Fry MD - 12/08/2024 12:49 PM PHOTOGRAMMETRIST Philomena Fry MD 12/08/2024 12:50 PM Airway [...] NM Lymphoscintigraphy (Skin Cancer) (12/08/2024 8:15 AM PHOTOGRAMMETRIST) Anatomical Region Laterality Modality N/A Nuclear Medicine 12/08/2024 10:1 2 AM PHOTOGRAMMETRIST Impressions 12/08/2024 10:53 AM PHOTOGRAMMETRIST [place] node(s) identified as described above for subsequent intraoperative removal with gamma probe guidance. Dictated by: Leon Edgar MD The radiology attending physician has personally reviewed this study, and had reviewed and/or edited this written report and agrees with it. Electronically signed by: Mckinley Lezama M.D. Narrative 12/08/2024 10:53 AM PHOTOGRAMMETRIST EXAMINATION: LYMPHOSCINTIGRAPHY DATE OF STUDY: 12/08/2024 RADIOPHARMACEUTICAL: [...] uptake at the site of injection. IMPRESSION: [place] node(s) identified as described above for subsequent intraoperative removal with gamma probe guidance. Dictated by: Leon Edgar MD The radiology attending physician has personally reviewed this study, and had reviewed and/or edited this written report and agrees with it. Electronically signed by: Mckinley Lezama M.D. Lili Romero MD [facility] PROCEDURES Final Result * MRI Brain W WO Contrast (12/06/2024 2:36 PM PHOTOGRAMMETRIST) Anatomical Region Laterality Modality Head and Neck N/A Magnetic Resonan ce 12/06/2024 3:27 PM PHOTOGRAMMETRIST Impressions 12/06/2024 3:58 PM PHOTOGRAMMETRIST No evidence of intracranial metastatic disease. Dictated by: Cole Trujillo MD The radiology attending physician has personally reviewed this study, and had reviewed and/or edited this written report and agrees with it. Electronically signed by: Ayden Andrade MD Narrative 12/06/2024 3:58 PM PHOTOGRAMMETRIST EXAMINATION: Magnetic resonance imaging (MRI) of the [...] PET/CT FDG Whole Body (12/03/2024 9:31 AM PHOTOGRAMMETRIST) Anatomical Region Laterality Modality Body N/A Positron Emissio n Tomography (PET) 12/03/2024 10:5 2 AM PHOTOGRAMMETRIST Impressions 12/03/2024 11:45 AM PHOTOGRAMMETRIST 1. No PET/CT evidence of residual/recurrent or [...] Mckinley Lezama M.D. Narrative 12/03/2024 11:45 AM PHOTOGRAMMETRIST EXAMINATION: TUMOR FDG-PET/CT IMAGING DATE OF STUDY: 12/03/2024 SCANNER: [employer] (SQ1). This is a high-resolution scanner, which [...] obtained. The study was interpreted on the ilustrum workstation. The mean liver SUV (reported for quality and reliability engineer purposes) is 3.2. The total scanned area [...] FDG-PET/CT IMAGING DATE OF STUDY: 12/03/2024 SCANNER: [facility] [place] (SQ1). This is a high-resolution scanner, which [...] obtained. The study was interpreted on the ilustrum workstation. The mean liver SUV (reported for quality and reliability engineer purposes) is 3.2. The total scanned area [...] Final Result * eGFR (11/29/2024 11:15 AM PHOTOGRAMMETRIST) eGFR >90 >=60 mL/min/1. 73 m2 Comment: [...] reviewed 2021. Blood 11/29/2024 11:1 5 AM PHOTOGRAMMETRIST 11/29/2024 11:25 AM PHOTOGRAMMETRIST Rubin Maier MD LAB BLOOD ORDERABLES Final Res ult [facility] Department [place] [address] * Differential, auto (11/29/2024 11:15 AM PHOTOGRAMMETRIST) Neutrophil abs 4.1 1.5 - 6.5 K/cumm Comment:Testing performed by : [facility], [address] [place] [phone] Lymphocyte abs 2.8 0.8 - 3.3 K/cumm CERNER [facility] Comment:Testing performed by : [facility], [address] [place] [phone] Monocyte abs 0.6 0.2 - 0.8 K/cumm CERNER BJ Comment:Testing performed by : [facility], [address] [place] [phone] Eosinophil abs 0.1 0.0 - 0.5 K/cumm CERNER BJ Comment:Testing performed by : [facility], [address] [place] [phone] Basophil abs 0.1 0.0 - 0.1 K/cumm CERNER BJ Comment:Testing performed by : [facility], [address] [place] [phone] Neutrophil pct 53.7 % CERNER [facility]J Comment: Interpretive Data Percent cell count reference ranges are not reported, since discordance with absolute values may lead to misinterpretation of CBC data. Current Interpretive Data was last revised on 2018. Testing performed by: [facility], [address] [place] [phone] Lymphocyte pct 36.8 % CERNER [facility] Comment: Interpretive Data Percent cell count reference ranges are not reported, since discordance with absolute values may lead to misinterpretation of CBC data. Current Interpretive Data was last revised on 2018. Testing performed by: [facility], [address] [place] [phone] Monocyte pct 7.5 % CERRUPINDER NERI Comment: Interpretive Data Percent cell count reference ranges are not reported, since discordance with absolute values may lead to misinterpretation of CBC data. Current Interpretive Data was last revised on 2018. Testing performed by: [facility], [address] [place] [address] Eosinophil pct 1.3 % RAMON NERI Comment: Interpretive Data Percent cell count reference ranges are not reported, since discordance with absolute values may lead to misinterpretation of CBC data. Current Interpretive Data was last revised on 2018. Testing performed by: [facility], [address] [place] [address] Basophil pct 0.7 % RAMON NERI Comment: Interpretive Data Percent cell count reference ranges are not reported, since discordance with absolute values may lead to misinterpretation of CBC data. Current Interpretive Data was last revised on 2018. Testing performed by: [facility], [address] [place] [phone] Blood 11/29/2024 11:1 5 AM PHOTOGRAMMETRIST 11/29/2024 11:23 AM PHOTOGRAMMETRIST us Rubin Maier MD LAB BLOOD ORDERABLES Final Res ult Performing Organization Address [facility] Co de Phone Number [facility] Department [place] [address] * Thyroid Function [place] (11/29/2024 11:15 AM PHOTOGRAMMETRIST) TSH 0.62 0.30 - 4.20 mcIUnit/mL Blood 11/29/2024 11:1 5 AM PHOTOGRAMMETRIST 11/29/2024 11:25 AM PHOTOGRAMMETRIST us Rubin Maier MD LAB BLOOD ORDERABLES Final Res ult [facility] [place] [address] * CBC with auto differential (11/29/2024 11:15 AM PHOTOGRAMMETRIST) WBC 7.7 3.8 - 9.9 K/cumm Comment:Testing performed by : [facility], [address] [place] [address] Hgb 14.9 13.0 - 17.5 g/dL CERNER BJ Comment:Testing performed by : [facility], [address] [place] [address] Hct 44.5 38.9 - 50.3 % CERRUPINDER BJ Comment:Testing performed by : [facility], [address] [place] [address] Plt 200 150 - 400 K/cumm CERRUPINDER BJ Comment:Testing performed by : [facility], [address] [place] [address] MPV 8.9 6.8 - 10.4 fL CERNER BJ Comment:Testing performed by : [facility], [address] [place] [address] RBC 5.21 4.30 - 5.80 M/cumm CERNER BJ Comment:Testing performed by : [facility], [address] [place] [address] MCV 85.4 81.3 - 96.4 fL CERNER BJ Comment:Testing performed by : [facility], [address] [place] [address] MCH 28.7 27.1 - 33.3 pg CERNER BJ Comment:Testing performed by : [facility], [address] [place] [address] MCHC 33.5 32.3 - 35.7 g/dL CERNER BJ Comment:Testing performed by : [facility], [address] [place] [address] RDW CV 13.7 11.1 - 14.9 % CERNER BJ Comment:Testing performed by : [facility], [address] [place] [phone] NRBC abs 0.00 0.00 - 0.01 K/cumm [facility] Comment:Testing performed by : [facility], [address] [place] [phone] Blood 11/29/2024 11:1 5 AM PHOTOGRAMMETRIST 11/29/2024 11:23 AM PHOTOGRAMMETRIST Rubin Maier MD LAB BLOOD ORDERABLES Final Res ult Performing Organization Address City/[facility]/ZIP Co de Phone Number [facility] [place] [address] * Lactate dehydrogenase (LD) (11/29/2024 11:15 AM PHOTOGRAMMETRIST) Pathologist [facility] Lactate dehydrogenase (LDH) 132 100 - 250 Units/L Blood 11/29/2024 11:1 5 AM PHOTOGRAMMETRIST 11/29/2024 11:25 AM PHOTOGRAMMETRIST Rubin Maier MD LAB BLOOD ORDERABLES Final Res ult Performing Organization Address [facility] Co de Phone Number [facility] [place] [address] * (ABNORMAL) Comprehensive metabolic panel (11/29/2024 11:15 AM PHOTOGRAMMETRIST) Pathologist [facility] Sodium 141 135 - 145 mmol/L Potassium, pl 4.9 3.3 - 4.9 mmol/L [facility] Chloride 102 97 - 110 mmol/L [facility] CO2 32 22 - 32 mmol/L [facility] Anion gap 7 2 - 15 mmol/L [facility] BUN 17 6 - 25 mg/dL [facility] Creatinine 0.69(L) 0.80 - 1.30 mg/dL [facility] Glucose 137 70 - 199 mg/dL [facility] Comment: Interpretive Data Fasting glucose >/= 126 [...] Albumin 4.3 3.5 - 5.0 g/dL [facility] Alk phos 71 40 - 130 Units/L [facility] ALT 25 7 - 55 Units/L [facility] AST 22 10 - 50 Units/L CERNER [facility] Blood 11/29/2024 11:1 5 AM PHOTOGRAMMETRIST 11/29/2024 11:25 AM PHOTOGRAMMETRIST Rubin Maier MD LAB BLOOD ORDERABLES Final Res ult Performing Organization Address City/[facility]/ZIP Co de Phone Number RAMON NERI [facility] Department [place] [address] * [facility] Hereditary Cancer NGS Panel, Blood (11/29/2024 11:06 AM PHOTOGRAMMETRIST) Pathologist [facility] Please review the PDF for results. 12/08/2024 2:07 PM PHOTOGRAMMETRIST [facility] Comment:[facility] link Blood specimen (specimen) 11/29/2024 11:06 AM PHOTOGRAMMETRIST 12/08/2024 2:11 PM PHOTOGRAMMETRIST Rubin Maier MD LAB GENETIC TESTING Final Resu lt [facility] [address] [facility], [address] [phone] [facility] [address], [address] [place] [address] * COLONOSCOPY (09/19/2020 11:57 AM PHOTOGRAMMETRIST) Anatomical Region Laterality Modality Other Narrative Procedure Note Jaden Barry MD - 09/19/2020 11:57 AM CST [facility] Patient Name: Ayla Forrester Procedure Date: 09/19/2020 11:57 AM Date of : 1960 Admit Type: Outpatient Age: 60 Gender: Male Attending MD: Jaden Barry M.D. Room: [facility] ENDOSCOPY ROOM 1 Note Status: Finalized Patient [...] passed under direct vision. The PediatricColonoscope [id number] was introduced through the anusand advanced to [...] 11:57 AM Procedure Code(s): --- Professional --- 13166, Colonoscopy, flexible; diagnostic, including collection of specimen(s) by brushing or washing, when performed (separateprocedure) Diagnosis Code(s): --- Professional --- K64.8, Other hemorrhoids K62.5, Hemorrhage of anus and rectum K57.30, Diverticulosis of large intestine without perforation orabscess without bleeding CPT copyright 2017 [employer]. All rights reserved. The codes documented in this report are preliminary and upon waste chopper reviewmay be revised to meet current compliance requirements. Recognized by the [employer] for promoting quality in endoscopy Jaden Barry MD ENDOSCOPY PROCEDURES Final Result from Last 3 Months or Most Recently Relevant to Health Maintenance Insurance [facility] [id number] [facility] OPEN ACCESS [facility] [id number] Advance Directives For more information, please contact: [phone] * Full Code (Latest Code Status on File) Date Activated Date Inactivated Comments 09/19/2020 11:56 AM 09/19/2020 6:24 PM Care Teams Senior Power Scheduler Relationship Specialty Start Date End Date Ninfa Farmer MD [address] [place] [address] PCP - General 12/20/13 Rubin Maier MD [address] [facility] [facility], [address] [place] [address] Medical Oncologist/Ssas Developer Medical Oncology 11/15/24
--- OUTSIDE RECORDS SUMMARY | 2025-02-14 15:18 | XMS_ITS | Clinical Summary ---
Author Organization [facility] Address [facility] [facility] [place] [address] Care Team Providers Care Paper Tube Machine Operator Name Role Phone Miquel TIAN MD, Keanu Unavailable [phone] Per Farmer MD Primary Care Provider [phone] Source Comments [facility],non-owned Affiliates and Associated Physician Practices is amultiple site organization consisting of ambulatory clinics and hospital sitesin [place], [place], [place] and [place]. This disclosure is being madepursuant to the Care Everywhere program and may not contain all information available regarding this patient. Last updated 18.[facility] [employer] Allergies No known active allergies Medications * Be aware that medications may not be up to date on this document. Alwaysverify current medications with the patient. Medication Sig Dispensed Refills Start Date End Date Status Potassium Chloride Liss CR (KLOR-CON M20 PO) Take 3 tablets by mouth every morning Active Multiple Vitamins-Minerals (EQ COMPLETE MULTIVIT ADULT 50+ PO) Take 1 Tab by mouth once daily. Active calcium polycarbophil (FIBERCON) 625 MG tablet Take 625 mg by mouth 2 times daily. 4 tablets in the morning and 2 tablets in the evening Active albuterol HFA (PROVENTIL;VENTOLIN;CO OAIR) 108 (90 Base) MCG/ACT inhaler every 6 hours as needed 06/01/2019 Active fluticasone propionate (FLONASE) 50 MCG/ACT nasal spray once daily as needed 01/11/2020 Active tadalafil (CIALIS) 20 MG tablet once daily as needed 02/03/2019 Active lisinopril-hydroCHLORO thiazide (PRINZIDE; ZESTORETIC) 20-25 MG tablet TAKE 1 TABLET BY MOUTH IN THE MORNING AND 1/2 TABLET BY MOUTH IN THE EVENING 10/07/2018 Active rosuvastatin (CRESTOR) 20 MG tablet Take 20 mg by mouth at bedtime 10/09/2018 Active oxyCODONE-acetaminophe n (PERCOCET) 10-325 MG tablet Take 0.5-1 tablets by mouth every 6 hours as needed 28 tablet 07/19/2020 Active celecoxib (CELEBREX) 200 MG capsule Take 1 capsule by mouth 2 times daily 60 capsule 07/19/2020 Active Active Problems Problem Noted Date Diagnosed Date Knee arthropathy 04/20/2020 Family History Medical History Relation Name Comments Heart Disease Other 1 Stroke Other 2 Asthma Other 3 Hypertension Other 4 Prostate Problem Other 5 Relation Name Status Comments Other 1 Other 2 Other 3 Other 4 Other 5 Social History Tobacco Use Types Packs/Day Years Used Date Smoking Tobacco: Former Smokeless Tobacco: Current Chew Alcohol Use Standard Drinks/Week Comments Yes 10 (1 standard drink = 0.6 oz pu re alcohol) Sex and Gender Information Value Date Recorded Sex Assigned at Not on file Gender Identity Not on file Sexual Orientation Not on file Last Filed Vital Signs Vital Sign Reading Time Taken Comments Blood Pressure 129/75 07/20/2020 8:11 AM CDT Pulse 87 07/20/2020 8:11 AM CDT Temperature 36.8 C (98.2 F) 07/20/2020 8:31 AM CDT Respiratory Rate 20 07/20/2020 8:11 AM CDT Oxygen Saturation 95% 07/20/2020 8:11 AM CDT Inhaled Oxygen Concentration - - Weight 128.6 kg (283 lb 9.6 oz) 020 10:07 AM CDT Height 180.3 cm (5' 11 ) 07/18/2020 10: 07 AM CDT Body Mass Index 39.55 07/18/2020 10:07 AM CDT Plan of Treatment Health Maintenance Due Date Last Done Comments COLOGUARD (AGES 45-75) - COLON CA SCREENING [address] COLONOGRAPHY - COLON CA SCREENING 1962 FIT - COLON CA SCREENING 1962 FLEX SIG - COLON CA SCREENING 1962 HIV SCREENING 1977 HEPATITIS C SCREENING 06/01/1980 DTAP/TDAP/TD VACCINES (1 - Tdap) 1981 PNEUMOCOCCAL VACCINE 50+ (1 of 1 - PCV) 2012 ZOSTER VACCINE (1 of 2) 2012 SCREENING FOR DIABETES 07/19/2023 0, 07/18/2020, 06/27/2020, Additional history exists COVID-19 VACCINE ( season) 2024 INFLUENZA VACCINE (#1) 2024 DEPRESSION SCREENING 11/17/2024 COLONOSCOPY - COLON CA SCREENING 09/19/2030 09/19/2020 Colorectal Cancer Screening 09/19/2030 Respiratory Syncytial Virus (RSV) Vaccine Pt: or over 60 yrs (1 - 1-dose 75+ series) 2037 HEPATITIS B VACCINE Aged Out No longe r eligible based on patient's age to complete this topic HIB VACCINE Aged Out No longer eligi ble based on patient's age to complete this topic HPV VACCINE Aged Out No longer eligi ble based on patient's age to complete this topic MENINGOCOCCAL (Group B) VACCINE SHARED DECISION-MAKING Aged Out No longer eligible based on patient's age to complete this topic MENINGOCOCCAL GROUPS A/C/Y/W VACCINE Aged Out No longer eligible based on patient's age to complete this topic PNEUMOCOCCAL VACCINE Aged Out No long er eligible based on patient's age to complete this topic Medical Devices Implanted Type Area Press Clippings Cutter And Paster Device Identifier Shelf Expiration Date Model / Serial / Lot Chioma Acetabular Shell, 58mm Implanted:Qty: 1 on 07/05/2014 by Keanu Lafleur IV, MD at [facility] Left: Hip 05/16/2024 / / [id number] Chioma, Acetabular Liner, 32mm Implanted:Qty: 1 on 07/05/2014 by Keanu Lafleur IV, MD at [facility] Left: Hip 04/15/2018 / / [id number] Chioma Femoral Stem, Size 6 Implanted:Qty: 1 on 07/05/2014 by Keanu Lafleur IV, MD at [facility] Left: Hip 01/14/2019 [id number] / / [id number] Chioma Femoral Head, 32mm Plus 3.5mm Implanted:Qty: 1 on 07/05/2014 by Keanu Lafleur IV, MD at [facility] Left: Hip 09/15/2023 [id number] / / [id number] Scrw Bone Yary Ii Tib 6.5mm X 35mm Implanted:Qty: 1 on 04/20/2020 by Keanu Lafleur IV, MD at [facility] Left: Knee [employer] 05/17/2022 [id number] / / [id number] Scrw Bone Yary Ii Tib 6.5mm X 40mm Implanted:Qty: 1 on 04/20/2020 by Keanu Lafleur IV, MD at [facility] Left: Knee [employer] 06/28/2028 [id number] / / [id number] Legion Por Keane Tib Base L Sz 7 Implanted:Qty: 1 on 04/20/2020 by Keanu Lafleur IV, MD at [facility] Left: Knee [employer] 06/14/2028 [id number] / / [id number] Legion Por Cr Fem L Sz 5 Implanted:Qty: 1 on 04/20/2020 by Keanu Lafleur IV, MD at [facility] Left: Knee [employer] 10/26/2029 [id number] / / [id number] Ins Tib 7-8 13mm Kn Xlpe Dsh Legion Implanted:Qty: 1 on 04/20/2020 by Keanu Lafleur IV, MD at [facility] Left: Knee [employer] 05/30/2029 [id number] / / [id number] Stem Tib 55mm 18mm Prfx Mtphsl Kn Implanted:Qty: 1 on 04/20/2020 by Keanu Lafleur IV, MD at [facility] Left: Knee [employer] 09/01/2028 [id number] / / [id number] Screw Bsplt 30mm 6.5mm Gns2 Kn Tib Por Implanted:Qty: 2 on 04/20/2020 by Keanu Lafleur IV, MD at [facility] Left: Knee [employer] 12/13/2029 [id number] / / [id number] Legion Por Cr Fem R Sz 5 Implanted:Qty: 1 on 07/18/2020 by Keanu Lafleur IV, MD at [facility] Right: Knee [employer] 04/01/2030 [id number] / / [id number] Ins Xlpe Dished Artc Sz 7-8 15mm Implanted:Qty: 1 on 07/18/2020 by Keanu Lafleur IV, MD at [facility] Right: Knee [employer] 06/14/2027 [id number] / / [id number] Stem Tib 55mm 18mm Prfx Mtphsl Kn Implanted:Qty: 1 on 07/18/2020 by Keanu Lafleur IV, MD at [facility] Right: Knee [employer] 02/08/2030 [id number] / / [id number] Legion Por Keane Tib Base R Sz 7 Implanted:Qty: 1 on 07/18/2020 by Keanu Lafleur IV, MD at [facility] Right: Knee [employer] 12/21/2029 [id number] / / [id number] Screw Bsplt 20mm 6.5mm Gns2 Kn Tib Por Implanted:Qty: 1 on 07/18/2020 by Keanu Lafleur IV, MD at [facility] Right: Knee [employer] 02/25/2030 [id number] / / [id number] Scrw Bone Yary Ii Tib 6.5mm X 40mm Implanted:Qty: 1 on 07/18/2020 by Keanu Lafleur IV, MD at [facility] Right: Knee [employer] 04/19/2029 [id number] / / [id number] Screw Bsplt 25mm 6.5mm Gns2 Kn Tib Por Implanted:Qty: 1 on 07/18/2020 by Keanu Lafleur IV, MD at [facility] Right: Knee [employer] 02/21/2030 [id number] / / [id number] Scrw Bone Yary Ii Tib 6.5mm X 35mm Implanted:Qty: 1 on 07/18/2020 by Keanu Lafleur IV, MD at [facility] Right: Knee [employer] 02/25/2030 [id number] / / [id number] Procedures Procedure Name Priority Date/Time Associated Diagnosis Comments BASIC METABOLIC PANEL (CALCIUM TOTAL) AM Draw 07/19/2020 2:52 AM CDT Knee arthropathy from Last 3 Months or Most Recently Relevant to Health Maintenance Results * (ABNORMAL) BASIC METABOLIC PANEL (CALCIUM TOTAL) (07/19/2020 2:52 AM CDT) Pathologist [facility] Glucose 125(H) 70 - 105 mg/dL 07/19/2020 3:25 AM CDT [facility] Sodium 136 136 - 145 mmol/L 07/19/2020 3:25 AM CDT [facility] Potassium 4.1 3.5 - 5.1 mmol/L 07/19/2020 3:25 AM CDT [facility] Chloride 99 98 - 107 mmol/L 07/19/2020 3:25 AM CDT [facility] CO2 29 23 - 31 mmol/L 07/19/2020 3:25 AM CDT [facility] Calcium 9.1 8.4 - 10.4 mg/dL 07/19/2020 3:25 AM CDT [facility] Anion Gap 8 8 - 16 mmol/L 07/19/2020 3:25 AM CDT [facility] BUN 23 8.4 - 25.7 mg/dL 07/19/2020 3:25 AM CDT [facility] Creatinine 0.98 0.72 - 1.25 mg/dL 07/19/2020 3:25 AM CDT [facility] eGFR by MDRD >60 >60 mL/min/1.7 3m2 07/19/2020 3:25 AM CDT [facility] eGFR by MDRD >60 >60 mL/min/1.7 3m2 07/19/2020 3:25 AM CDT [facility] Blood BLOOD SPECIMEN / Unknown Venipuncture / Unknown 07/19/2020 2:52 AM CDT 07/19/2020 3:02 AM CDT Keanu Lafleur IV, MD LAB - CHEMISTRY [facility] [address] [place] [address] from Last 3 Months or Most Recently Relevant to Health Maintenance Advance Directives * Full Code (Latest Code Status on File) Date Activated Date Inactivated Comments 07/18/2020 3:43 PM 07/20/2020 12:28 PM * Full Code Date Activated Date Inactivated Comments 04/20/2020 3:34 PM 04/21/2020 4:00 PM * Full Code Date Activated Date Inactivated Comments 07/05/2014 12:38 PM 07/08/2014 4:13 PM Care Teams Paper Tube Machine Operator Relationship Specialty Start Date End Date Per Farmer MD [address] [place] [address] PCP - General Cardiovascular Disease 05/12/14 [place] [address] [facility] [address] [place] [address] Orthopedic Surgery 05/12/14
--- OUTSIDE RECORDS SUMMARY | 2025-02-14 15:18 | XMS_ITS | Continuity of Care Document ---
Author Organization [facility] Address [address] [place] [address] Phone Care Team Providers Care Social Security Specialist Name Role Phone Junior Holt MD Unavailable Unavailable Allergies, Adverse Reactions, Alerts Substance Reaction Status Criticality No Known Allergies Active No Inform ation Medications Medication Instructions Dosage Effective Dates (start - stop) Status Comments AMITRIPTYLINE HCL (unknown strength) Not Available - Active SIMVASTATIN (unknown strength) Not Available - Active PROPRANOLOL HCL (unknown strength) Not Available - Active LISINOPRIL (unknown strength) Not Available - Active Procedures Procedure Date RADEX SPI CRV 2/3 VIEWS OFFICE CONSULTATION Advance Directives Directive Yes / No Effective Date File Name No Information Encounters Encounter Description Practice Location Reason(s) For Visit Diagnoses Date Provider Providers Copied on Encounter [facility], [address] [place] [address], [address], tel:[phone] [facility] No Information [address] Yan[address] P[address]co. [address], [place], [id number] . tel: [phone] [facility], [address] [facility] [place], [address], [place] tel:[phone] [facility] Cervical stenosis of spineCervical cord myelomalaciaFace t arthropathy, cervical 7 Yanet Pacheco. [address] , [place], [place], [id number] . tel: [phone] OFFICE CONSULTATION [facility], [address], [place], [address], [place] tel:[phone] [facility] My neck hurts and I get terrible headaches (chief complaint) Neck painBody mass index (BMI) 39.0-39.9, adultPersonal history of nicotine dependenceCervic al stenosis of spineCervical cord myelomalaciaFace t arthropathy, cervical 7 Yanet Pacheco. [address], [place], [place], [id number] . tel: [phone] Family History Family Member Type Diagnosis Age At Onset Mother Problem (finding) malignant neoplasm of o vary Father Problem (finding) congenital heart diseas e Payers Payer name Insurance type Covered democrat ID Authoriza tion(s) No Information Social History Type Description Quantity Date Captured Comments Alcohol Use Details Unknown Caffeine Use Details Unknown Tobacco Use Status Smoking Status No Information Sex Male Chief Complaint And Reason For Visit No Information Reason For Referral Reason For Referral No Information Plan Of Treatment Date Type Action Status Referral Ordered: RADEX SPI CRV 2/3 VIEWS ordered Patient Education Stopping Smoking: Care Instructions completed History Of Present Illness Encounter Date Complaint History Of Prese nt Illness My neck hurts and I get terrible headaches Functional Status Date Functional Assessmen t No Information Instructions Date Instruction Additional Infor mation At this time, we hav e exhausted all non-operative management for this patient in the form of physical therapy, anti-inflammatories and life style modifications, all of which have failed to alleviate the patient's neck and arm symptoms. I feel the patient would be an excellent candidate for an anterior cervical discectomy and instrumented fusion at C5-6. The risks and benefits associated with the procedure were discussed at length with the patient which include bleeding, infection, nerve injury, non-union, continued pain, and need for further surgery. I also discussed the risk of injury to the esophagus and trachea as well as injury to the recurrent laryngeal nerve resulting in hoarseness or change in phonation. Also, I discussed the risk of injury to the major blood vessels supplying blood to the brain resulting in a massive stroke and . I also discussed injury to the spinal cord resulting in paralysis and loss of use of the arms and legs or injury to a nerve resulting in weakness in one or both arms. The risk of injury to the dura causing a spinal leak and need to sit up for 24 to 48 hours versus possible return to the operating room was also discussed with the patient. Finally, I discussed the risk of blood clots in the legs resulting in pulmonary embolus or stroke and even .I also discussed that with this surgery the patient usually goes home the next day and the biggest complaint people have is that of a sore throat for about three to six weeks. The patient understood these risks and benefits and wished to proceed with the above-stated procedure. We will have the patient see their primary care provider prior to surgery for pre-operative evaluation and risk stratification for surgery. In addition we will obtain routine blood work prior to surgery. All the patient's questions were answered. Related to Facet arthropathy, cervical Dietary needs education Related to Body mass index (BMI) 39.0-39.9, adult Assessments Type Assessment Date No Information Patient Care Teams Name Effective Dates (start - stop) Status Members No Information
[2025-02-14 17:07] LABS: Toxigenic C. Diff NEGATIVE (NEGATIVE)
== END 2025-02-14 13:54 | disposition home or self-care (01) ==
PROVIDERS: PCP Internal Medicine; Visit Provider Internal Medicine
DX: R10.32 Left lower quadrant pain (principal); K92.1 Melena; K57.30 Diverticulosis of large intestine without perforation or abscess without bleeding; K76.0 Fatty (change of) liver, not elsewhere classified; K40.20 Bilateral inguinal hernia, without obstruction or gangrene, not specified as recurrent
CPT/HCPCS: 36415; 74177; 80053; 82728; 83540; 85025; 87045; 87427; 87449; 87493; Q9967

== ENCOUNTER 2025-02-17 10:22 | Outpatient (CLI) | payer OTHER, SELFPAY ==
--- NOTE | ~2025-02-17 | MR_ITS ---
EXAMINATION: MR abdomen wo/w con DATE: 02/17/2025 11:33 INDICATION: Liver nodule on prior CT TECHNIQUE: Magnetic resonance imaging (MRI) of the abdomen was performed without and with 20 mL Multi brittney intravenous contrast. Sequences included coronal T2-weighted SS-FSE, coronal and axial FS 2D-F IESTA, axial STIR FSE, axial T2-weighted SS-FSE, axial T2-weighted FS SS-FSE, axial diffusion-weighte d SE, axial dual-echo T1-weighted FSPGR, and axial and coronal T1-weighted LAVA. Postcontrast axial T 1-weighted LAVA images were obtained in a time course. Postcontrast coronal T1-weighted LAVA images w ere obtained. COMPARISON: CT dated 02/14/2025 FINDINGS: Heart size is normal. No pericardial or pleural effusion. Marked diffuse hepatic steatosis with signi ficant signal dropout on the post phase imaging. The signal dropout relatively spares the small regio ns of focal fatty sparing along the gallbladder fossa which are also clearly seen as more T1 hyperint ense lesions on the fat-saturated LAVA images. This includes the 1.7 cm nodular region of concern everton cribed on the prior CT. No abnormally enhancing liver lesions identified. Gallbladder, spleen, pancre as, right kidney and bilateral adrenal glands are normal. T2 hyperintense nonenhancing cysts in the l eft kidney the largest measuring 1.4 cm. Portion of the bowels are unremarkable. No pathologically en larged abdominal or upper pelvic lymphadenopathy. Mild lumbar levocurvature with moderate to severe d isc height loss with fibrofatty degenerative endplate changes on the right at L3-L4. Marrow signal is otherwise unremarkable with no pathologic marrow replacing process.. IMPRESSION: 1. Prominent diffuse hepatic steatosis with focal sparing along the gallbladder fossa which includes the 1.7 cm nodular lesion of concern described on prior CT. Reviewed, dictated and finalized at location A. IMPRESSION: 1. Prominent diffuse hepatic steatosis with focal sparing along the gallbladder fossa which includes the 1.7 cm nodular lesion of concern described on prior C T.
--- OUTSIDE RECORDS SUMMARY | 2025-02-17 11:11 | XMS_ITS | Clinical Summary ---
Author Organization [facility] Address [facility] [place] [address] Care Team Providers Care Instrument Lens Grinder Apprentice Name Role Phone Miquel TIAN MD, Keanu Unavailable [phone] Per Farmer MD Primary Care Provider [phone] Source Comments [facility],non-owned Affiliates and Associated Physician Practices is amultiple site organization consisting of ambulatory clinics and hospital sitesin [place], [place], [place] and [place]. This disclosure is being madepursuant to the Care Everywhere program and may not contain all information available regarding this patient. Last updated 18.[facility] Seakeeper Allergies No known active allergies Medications * [...] tablets in the evening Active albuterol HFA (PROVENTIL;VENTOLIN;GA OAIR) 108 (90 Base) MCG/ACT inhaler every [...] this topic Medical Devices Implanted Type [employer] Records Supervisor Device Identifier Shelf Expiration Date Model / Serial / Lot Chioma Acetabular Shell, 58mm Implanted:Qty: 1 on 07/05/2014 by Keanu aLfleur IV, MD at [facility] Left: Hip 05/16/2024 / / [id number] Chioma, Acetabular Liner, 32mm Implanted:Qty: 1 on 07/05/2014 by Keanu Lafleur IV, MD at [facility] Left: Hip 04/15/2018 / / [id number] Chioma Femoral Stem, Size 6 Implanted:Qty: 1 on 07/05/2014 by Keanu Lafleur IV, MD at [facility] Left: Hip 01/14/2019 [id number] / / [id number] Chioma Femoral Head, 32mm Plus 3.5mm Implanted:Qty: 1 on 07/05/2014 by Keanu Lafluer IV, MD at [facility] Left: Hip 09/15/2023 [id number] / / [id number] Scrw Bone Yary Ii Tib 6.5mm X 35mm Implanted:Qty: 1 on 04/20/2020 by Keanu Lafleur IV, MD at [facility] Left: Knee [employer] 05/17/2022 [id number] / / [id number] Scrw Bone Yary Ii Tib 6.5mm X 40mm Implanted:Qty: 1 on 04/20/2020 by Keanu Lafleur IV, MD at [facility] Left: Knee [employer] 06/28/2028 [id number] / / [id number] Legion Por Keane Tib Base L Sz 7 Implanted:Qty: 1 on 04/20/2020 by Keanu Lafleur IV, MD at [facility] Left: Knee [employer] 06/14/2028 [id number] / / [id number] Legion Por Cr Fem L Sz 5 Implanted:Qty: 1 on 04/20/2020 by Keanu Lafleur IV, MD at [facility] Left: Knee [employer] 10/26/2029 [id number] / / [id number] Ins Tib 7-8 13mm Kn Xlpe Dsh Legion Implanted:Qty: 1 on 04/20/2020 by Keanu Lafleur IV, MD at [facility] Left: Knee [employer] 05/30/2029 [id number] / / [id number] Stem Tib 55mm 18mm Prfx Mtphsl Kn Implanted:Qty: 1 on 04/20/2020 by Keanu Lafleur IV, MD at [facility] Left: Knee [employer] 09/01/2028 [id number] / / [id number] Screw Bsplt 30mm 6.5mm Gns2 Kn Tib Por Implanted:Qty: 2 on 04/20/2020 by Keanu Lafleur IV, MD at [facility] Left: Knee [employer] 12/13/2029 [id number] / / [id number] Legion Por Cr Fem R Sz 5 Implanted:Qty: 1 on 07/18/2020 by Keanu Lafleur IV, MD at [facility] Right: Knee [employer] 04/01/2030 [id number] / / [id number] Ins Xlpe Dished Artc Sz 7-8 15mm Implanted:Qty: 1 on 07/18/2020 by Keanu Lafleur IV, MD at [facility] Right: Knee [employer] 06/14/2027 [id number] / / [id number] Stem Tib 55mm 18mm Prfx Mtphsl Kn Implanted:Qty: 1 on 07/18/2020 by Keanu Lafleur IV, MD at [facility] Right: Knee [employer] 02/08/2030 [id number] / / [id number] Legion Por Keane Tib Base R Sz 7 Implanted:Qty: 1 on 07/18/2020 by Keanu Lafleur IV, MD at [facility] Right: Knee [employer] 12/21/2029 [id number] / / [id number] Screw Bsplt 20mm 6.5mm Gns2 Kn Tib Por Implanted:Qty: 1 on 07/18/2020 by Keanu Lafleur IV, MD at [facility] Right: Knee [employer] 02/25/2030 [id number] / / [id number] Scrw Bone Yary Ii Tib 6.5mm X 40mm Implanted:Qty: 1 on 07/18/2020 by Keanu Lafleur IV, MD at [facility] Right: Knee [employer] 04/19/2029 [id number] / / [id number] Screw Bsplt 25mm 6.5mm Gns2 Kn Tib Por Implanted:Qty: 1 on 07/18/2020 by Keanu Lafleur IV, MD at [facility] Right: Knee [employer] 02/21/2030 [id number] / / [id number] Scrw Bone Yary Ii Tib 6.5mm X 35mm Implanted:Qty: 1 on 07/18/2020 by Keanu Lafleur IV, MD at [facility] Right: Knee [employer] 02/25/2030 [id number] / / [id number] Procedures Procedure Name Priority Date/Time Associated Diagnosis Comments BASIC METABOLIC PANEL (CALCIUM TOTAL) AM Draw 07/19/2020 2:52 AM CDT Knee arthropathy from Last 3 Months or Most Recently Relevant to Health Maintenance Results * (ABNORMAL) BASIC METABOLIC PANEL (CALCIUM TOTAL) (07/19/2020 2:52 AM CDT) Pathologist [facility] Glucose 125(H) 70 - 105 mg/dL 07/19/2020 [...] MD LAB - CHEMISTRY ANNE [facility]IE [facility] [id number] [place] [address] from Last 3 Months or Most Recently Relevant to Health Maintenance Advance Directives * Full Code (Latest Code Status on File) Date Activated Date Inactivated Comments 07/18/2020 3:43 PM 07/20/2020 12:28 PM * Full Code Date Activated Date Inactivated Comments 04/20/2020 3:34 PM 04/21/2020 4:00 PM * Full Code Date Activated Date Inactivated Comments 07/05/2014 12:38 PM 07/08/2014 4:13 PM Care Teams Instrument Lens Grinder Apprentice Relationship Specialty Start Date End Date Per Farmer MD [address] [place] [address] PCP - General Cardiovascular Disease 05/12/14 [place] [id number] [facility] [address] [place] [address] Orthopedic Surgery 05/12/14
--- OUTSIDE RECORDS SUMMARY | 2025-02-17 11:11 | XMS_ITS | Referral Summary ---
Author Organization [facility] Address [address] [place] [address] Care Team Providers Care Mock Up Builder Name Role Phone Ninfa Farmer MD Primary Care Provider [phone] Rubin Maier MD Unavailable Encounters Date Type Department Care Team Description 01/11/2025 10:30 AM VETERANS' COORDINATOR Office Visit [facility] Dermatology [address] [place] [address] Floor 6 [place] [phone] Heidi Ruiz MD Allergic contact dermatitis due to drugs in contact with skin (Primary Dx); Malignant melanoma of left lower extremity (HCC) 01/07/2025 12:30 PM VETERANS' COORDINATOR Clinical Support [facility] Surgery [address] [place] [address] 5 [place] [phone] Lili Romero MD Malignant melanoma of left lower extremity (HCC) (Primary Dx) 12/31/2024 Telephone [facility] Surgery [address] [place] [address] 5 [place] [address] Lottie Ramirez RN 12/31/2024 Orders Only [facility] Surgery [address] [place] [address] 5 [place] [address] Lili Romero MD 12/31/2024 Orders Only [facility] Surgery [address] [place] [address] 5 [place] [address] Lottie Ramirez RN 12/30/2024 Telephone [facility] Surgery [address] [place] [address] 5 [place] [address] Lottie Ramirez RN 12/30/2024 Telephone [facility] Surgery [address] [place] [address] Floor 8 [place] [address] Lili Romero MD Post-op Problem 12/24/2024 12:45 PM VETERANS' COORDINATOR Office Visit [facility] Surgery [address] [place] [address] Floor 5 [place] [address] Lili Romero MD Malignant melanoma of left lower extremity (HCC) (Primary Dx) 12/20/2024 11:40 AM VETERANS' COORDINATOR Office Visit [facility] Oncology [address] [place] [address] Floor 6 [place] [phone] Rubin Maier MD Malignant melanoma of left lower extremity (HCC) 12/17/2024 Telephone [facility] Surgery [address] [place] [address] Floor 8 [place] [address] Lili Romero MD Call Back 12/16/2024 Telephone [facility] Surgery [address] [place] [address] Floor 5 [place] [address] Lili Romero MD 12/08/2024 6:31 AM VETERANS' COORDINATOR - 12/08/2024 11:59 PM VETERANS' COORDINATOR Hospital Encounter [facility] ([facility]) [address] [place] [phone] Malignant melanoma of left lower extremity including hip (HCC) Discharge Disposition: Discharge to home or self care 12/08/2024 12:40 PM VETERANS' COORDINATOR - 12/08/2024 2:25 PM VETERANS' COORDINATOR Surgery [facility] ([facility]) [address] [place] [address] Lili Romero MD WIDE EXCISION LEFT LOWER EXTREMITY 12/08/2024 12:36 PM VETERANS' COORDINATOR Anesthesia Event [facility] ([facility]) [address] [place] [address] James Lynn MD Wilkinson, Christina A., NP 12/08/2024 8:19 AM VETERANS' COORDINATOR - 12/08/2024 4:32 PM VETERANS' COORDINATOR Hospital Encounter [facility] ([facility]) [address] [place] [address] Lili Romero MD Malignant melanoma of left lower extremity including hip (HCC) Discharge Disposition: Discharge to home or self care 12/06/2024 2:04 PM VETERANS' COORDINATOR - 12/06/2024 11:59 PM VETERANS' COORDINATOR Hospital Encounter [facility] - MRI [address] Floor 8 [place] [address] Malignant melanoma of left lower extremity (HCC) Discharge Disposition: Discharge to home or self care 12/03/2024 7:37 AM VETERANS' COORDINATOR - 12/03/2024 11:59 PM VETERANS' COORDINATOR Hospital Encounter [facility] - PET [address] Floor 8 [place] [address] Discharge Disposition: Discharge to home or self care 12/03/2024 7:37 AM VETERANS' COORDINATOR - 12/03/2024 11:59 PM VETERANS' COORDINATOR Hospital Encounter [facility] - PET [address] Floor 8 [place] [address] Malignant melanoma of left lower extremity (HCC) Discharge Disposition: Discharge to home or self care 12/01/2024 Telephone [facility] Dermatology [address] [facility] [address] [place] [phone] Trev Yates MD PhD stage IV melanoma 11/30/2024 Orders Only [facility] ONCOLOGY Scanning, Provider 11/29/2024 11:15 AM VETERANS' COORDINATOR Lab [facility] - [facility] Collection [address] [facility] [address] [place] [address] Malignant melanoma of left lower extremity (HCC) 11/29/2024 11:00 AM VETERANS' COORDINATOR Lab [facility] Oncology Lab [address] [place] [address] Floor 6 [place] [address] Malignant melanoma of left lower extremity (HCC) 11/29/2024 Orders Only [facility] Oncology [address] [place] [address] Floor 6 [place] [address] Rubin Maire MD Malignant melanoma of left lower extremity (HCC) (Primary Dx) 11/29/2024 10:00 AM VETERANS' COORDINATOR Office Visit [facility] Oncology [address] [place] [address] Floor 6 [place] [address] Rubin Maier MD Malignant melanoma of left lower extremity (HCC) (Primary Dx) 11/26/2024 1:45 PM VETERANS' COORDINATOR Office Visit [facility] Surgery [facility] Floor 5 [place] [address] Lili Romero MD Malignant melanoma of left lower extremity (HCC) 11/24/2024 Telephone [facility] Surgery [facility] 5 [place] [address] Lottie Ramirez RN 11/24/2024 Orders Only [facility] Surgery [facility] 5 [place] [address] Lottie Ramirez RN Malignant melanoma [...] Deficiency Prevention Take 1 tablet by mouth 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 Active albuterol HFA (PROVENTIL HFA,VENTOLIN [...] (08/30/2020): Added automatically from request for surgery [id number] Cervical spinal stenosis 10/30/2018 Headache 12/20/2013 Overview [...] on file Legal Sex Male 4:49 PM VETERANS' COORDINATOR Gender Identity Not on file Sexual Orientation Not on file Last Filed Vital Signs Vital Sign Reading Time Taken Comments Blood Pressure 111/70 12/24/2024 12:33 PM VETERANS' COORDINATOR Pulse 65 12/24/2024 12:33 PM VETERANS' COORDINATOR Temperature 36.7 C (98 F) 12/24/2024 12:33 PM VETERANS' COORDINATOR Respiratory Rate 17 12/24/2024 12:3 3 PM VETERANS' COORDINATOR Oxygen Saturation 97% 12/24/2024 12: 33 PM VETERANS' COORDINATOR Inhaled Oxygen Concentration - - Weight 130.7 kg (288 lb 3.2 oz) 025 12:12 PM VETERANS' COORDINATOR Height 177.8 cm (5' 10 ) 01/07/2025 12: 12 PM VETERANS' COORDINATOR Body Mass Index 41.35 01/07/2025 12:12 PM VETERANS' COORDINATOR Plan of Treatment Not on file Procedures Procedure Name Priority Date/Time Associated Diagnosis Comments SURGICAL PATHOLOGY Routine 12/08/2024 1: 54 PM VETERANS' COORDINATOR Malignant melanoma of left lower extremity including hip (HCC) ANESTHESIA INTUBATION Routine 12/08/2024 12:49 PM VETERANS' COORDINATOR BIOPSY SENTINEL LYMPH NODE 12/08/2024 12:36 PM VETERANS' COORDINATOR Malignant melanoma of left lower extremity including hip (HCC) Case Notes 11/24 - MISSING DPC. EMAIL SENT. PADMINI 11/24@1033- Case msg sent to production control scheduler re: no more block time on 12/01- DMF EXCISION CYST/LESION/MASS - LOWER EXTREMITY 12/08/2024 12:36 PM VETERANS' COORDINATOR Malignant melanoma of left lower extremity including hip (HCC) Case Notes 11/24 - MISSING DPC. EMAIL SENT. PADMINI 11/24@1033- Case msg sent to production control scheduler re: no more block time on 12/01- DMF NM LYMPHOSCINTIGRAPHY (SKIN CANCER) Schedule Routine, Read Routine (OP Routine) 12/08/2024 8:15 AM VETERANS' COORDINATOR Malignant melanoma of left lower extremity including hip (HCC) MRI BRAIN W WO CONTRAST Schedule Routine, Read Routine (OP Routine) 12/06/2024 2:36 PM VETERANS' COORDINATOR Malignant melanoma of left lower extremity (HCC) PET/CT FDG WHOLE BODY Schedule Routine, Read Routine (OP Routine) 12/03/2024 9:31 AM VETERANS' COORDINATOR Malignant melanoma of left lower extremity (HCC) SCAN - PATHOLOGY 11/30/2024 EGFR Routine 11/29/2024 11:15 AM VETERANS' COORDINATOR Malignant melanoma of left lower extremity (HCC) DIFFERENTIAL AUTO Routine 11/29/2024 11:15 AM VETERANS' COORDINATOR Malignant melanoma of left lower extremity (HCC) CBC WITH AUTO DIFFERENTIAL Routine 11/29/2024 11:15 AM VETERANS' COORDINATOR Malignant melanoma of left lower extremity (HCC) COMPREHENSIVE METABOLIC PANEL Routine 11/29/2024 11:15 AM VETERANS' COORDINATOR Malignant melanoma of left lower extremity (HCC) LACTATE DEHYDROGENASE Routine 11/29/2024 11:15 AM VETERANS' COORDINATOR Malignant melanoma of left lower extremity (HCC) THYROID FUNCTION CASCADE Routine 025 11:15 AM VETERANS' COORDINATOR Malignant melanoma of left lower extremity (HCC) TEMPUS XG HEREDITARY CANCER NGS PANEL Routine 11/29/2024 11:06 AM VETERANS' COORDINATOR Malignant melanoma of left lower extremity (HCC) COLONOSCOPY 09/19/2020 11:57 AM VETERANS' COORDINATOR from Last 3 Months or Most Recently Relevant to Health Maintenance Results * Surgical pathology (12/08/2024 1:54 PM VETERANS' COORDINATOR) Tissue specimen (specimen) (Lymph node, sentinel, NOS) 12/08/2024 1:54 PM VETERANS' COORDINATOR Other (Other) 12/08/2024 2:2 2 PM VETERANS' COORDINATOR Narrative PATHOLOGY [facility] - 12/15/2024 10:31 AM VETERANS' COORDINATOR EPIC results best viewed via link to PDF [facility]izwana Sid[facility] Laboratory of Surgical Pathology [place] [address] Note to Patients: This report may contain [...] Gender: M : 1960 (Age: 64) Address: [address] [place], [place] [id number] Hospital #: [id number] Taken:12/08/2024 Received:12/08/2024 Reported: 12/15/2024 Patient Type: [facility] Service: Oncology Location: Physician(s): MD Ninfa Herrera [...] Dermatopathology Center, Department of Pathology and Immunology, [facility], [address] [place] [address], [address], [address] # [id number] Jesica Morales M.D. History: The patient is [...] blue-inferior/medial/superior. The ellipse is serially sectioned from rsnkzyyv-ve-zwhutdte. The lesion has a brown-orange, homogenous cut surface and grossly abuts the dermis but is >0.5 cm from the deep margin. The adipose tissue cut surface is grossly unremarkable. Photographs are provided. The ellipse is entirely submitted sequentially in cassettes B1 (superior margin, en face), B2 (inferior margin, en face), and B3-B18 (B9-B14 lesion; B10 stitch). Jar 1. behu12/09/2024 10:01 PA(s): Anika Jenkins MS, JODY([facility])CM By this signature, I attest that the above diagnosis is based upon my personal examination of the slides(and/or other material). Addenda/Procedures The performance characteristics of some immunohistochemical stains, fluorescence in-situ hybridization tests and immunophenotyping by flow cytometry cited in this report (if any) were determined by the Surgical Pathology and Flow Cytometry Departments at [facility] as part of an ongoing aircraft quality control inspector program and in compliance with federally mandated [...] and Flow Cytometry Departments of [facility]. It has not been cleared or approved by the U. S. Food and Drug Administration. IMAGES AND SCANNED DOCUMENTS, IF INCLUDED, ONLY VIEWABLE IN PDF VERSION OF REPORT us Lili Romero MD LAB PATHOLOGY ORDERABLES Final R esult PATHOLOGY [facility] 3rd Floor [place], [place] [phone] * Airway (12/08/2024 12:49 PM VETERANS' COORDINATOR) Narrative Philomena Fry MD - 12/08/2024 12:49 PM VETERANS' COORDINATOR Philomena Fry MD 12/08/2024 12:50 PM Airway [...] NM Lymphoscintigraphy (Skin Cancer) (12/08/2024 8:15 AM VETERANS' COORDINATOR) Anatomical Region Laterality Modality N/A Nuclear Medicine 12/08/2024 10:1 2 AM VETERANS' COORDINATOR Impressions 12/08/2024 10:53 AM VETERANS' COORDINATOR [place] node(s) identified as described above for subsequent intraoperative removal with gamma probe guidance. Dictated by: Leon Edgar MD The radiology attending physician has personally reviewed this study, and had reviewed and/or edited this written report and agrees with it. Electronically signed by: Mckinley Lezama M.D. Narrative 12/08/2024 10:53 AM VETERANS' COORDINATOR EXAMINATION: LYMPHOSCINTIGRAPHY DATE OF STUDY: 12/08/2024 RADIOPHARMACEUTICAL: [...] uptake at the site of injection. IMPRESSION: [place] node(s) identified as described above for subsequent intraoperative removal with gamma probe guidance. Dictated by: Leon Edgar MD The radiology attending physician has personally reviewed this study, and had reviewed and/or edited this written report and agrees with it. Electronically signed by: Mckinley Lezama M.D. Lili Romero MD IMG NM PROCEDURES Final Result * MRI Brain W WO Contrast (12/06/2024 2:36 PM VETERANS' COORDINATOR) Anatomical Region Laterality Modality Head and Neck N/A Magnetic Resonan ce 12/06/2024 3:27 PM VETERANS' COORDINATOR Impressions 12/06/2024 3:58 PM VETERANS' COORDINATOR No evidence of intracranial metastatic disease. Dictated by: Cole Trujillo MD The radiology attending physician has personally reviewed this study, and had reviewed and/or edited this written report and agrees with it. Electronically signed by: Ayden Andrade MD Narrative 12/06/2024 3:58 PM VETERANS' COORDINATOR EXAMINATION: Magnetic resonance imaging (MRI) of the [...] by: Ayden Andrade MD Rubin Maier MD [facility] MRI PROCEDURES Final Resul t * PET/CT FDG Whole Body (12/03/2024 9:31 AM VETERANS' COORDINATOR) Anatomical Region Laterality Modality Body N/A Positron Emissio n Tomography (PET) 12/03/2024 10:5 2 AM VETERANS' COORDINATOR Impressions 12/03/2024 11:45 AM VETERANS' COORDINATOR 1. No PET/CT evidence of residual/recurrent or [...] Mckinley Lezama M.D. Narrative 12/03/2024 11:45 AM VETERANS' COORDINATOR EXAMINATION: TUMOR FDG-PET/CT IMAGING DATE OF STUDY: 12/03/2024 SCANNER: [employer] (SQ1). This is a high-resolution scanner, which [...] obtained. The study was interpreted on the CQuotient workstation. The mean liver SUV (reported for quality control industrial engineer purposes) is 3.2. The total scanned [...] FDG-PET/CT IMAGING DATE OF STUDY: 12/03/2024 SCANNER: [employer] (SQ1). This is a high-resolution scanner, which [...] obtained. The study was interpreted on the [employer]Quotient workstation. The mean liver SUV (reported for quality control industrial engineer purposes) is 3.2. The total scanned [...] Final Result * eGFR (11/29/2024 11:15 AM VETERANS' COORDINATOR) eGFR >90 >=60 mL/min/1. 73 m2 Comment: [...] reviewed 2021. Blood 11/29/2024 11:1 5 AM VETERANS' COORDINATOR 11/29/2024 11:25 AM VETERANS' COORDINATOR Rubin Maier MD LAB BLOOD ORDERABLES Final Res ult [facility] Department [place] [address] * Differential, auto (11/29/2024 11:15 AM VETERANS' COORDINATOR) Neutrophil abs 4.1 1.5 - 6.5 K/cumm Comment:Testing performed by : [facility], [address] [place] [phone] Lymphocyte abs 2.8 0.8 - 3.3 K/cumm [facility] Comment:Testing performed by : [facility], [address] [place] [phone] Monocyte abs 0.6 0.2 - 0.8 K/cumm C[facility]ER [facility] Comment:Testing performed by : [facility], [address] [place] [phone] Eosinophil abs 0.1 0.0 - 0.5 K/cumm [facility] Comment:Testing performed by : [facility], [address] [place] [phone] Basophil abs 0.1 0.0 - 0.1 K/cumm [facility] Comment:Testing performed by : [facility], [address] [place] [phone] Neutrophil pct 53.7 % [facility] Comment: Interpretive Data Percent cell count reference ranges are not reported, since discordance with absolute values may lead to misinterpretation of CBC data. Current Interpretive Data was last revised on 2018. Testing performed by: [facility], [address] [place] [phone] Lymphocyte pct 36.8 % [facility] Comment: Interpretive Data Percent cell count reference ranges are not reported, since discordance with absolute values may lead to misinterpretation of CBC data. Current Interpretive Data was last revised on 2018. Testing performed by: [facility], [address] [place] [phone] Monocyte pct 7.5 % CERRUPINDER [facility] Comment: Interpretive Data Percent cell count reference ranges are not reported, since discordance with absolute values may lead to misinterpretation of CBC data. Current Interpretive Data was last revised on 2018. Testing performed by: [facility], [address] [place] [phone] Eosinophil pct 1.3 % RAMON NERI Comment: Interpretive Data Percent cell count reference ranges are not reported, since discordance with absolute values may lead to misinterpretation of CBC data. Current Interpretive Data was last revised on 2018. Testing performed by: [facility], [address] [place] [phone] Basophil pct 0.7 % RAMON NERI Comment: Interpretive Data Percent cell count reference ranges are not reported, since discordance with absolute values may lead to misinterpretation of CBC data. Current Interpretive Data was last revised on 2018. Testing performed by: [facility], [address] [place] [phone] Blood 11/29/2024 11:1 5 AM VETERANS' COORDINATOR 11/29/2024 11:23 AM VETERANS' COORDINATOR us Rubin Maier MD LAB BLOOD ORDERABLES Final Res ult RAMON [facility] Department [place] [address] * Thyroid Function Mcminn (11/29/2024 11:15 AM VETERANS' COORDINATOR) TSH 0.62 0.30 - 4.20 mcIUnit/mL Blood 11/29/2024 11:1 5 AM VETERANS' COORDINATOR 11/29/2024 11:25 AM VETERANS' COORDINATOR us Rubin Maier MD LAB BLOOD ORDERABLES Final Res ult [facility] Department [place] [address] * CBC with auto differential (11/29/2024 11:15 AM VETERANS' COORDINATOR) WBC 7.7 3.8 - 9.9 K/cumm Comment:Testing performed by : [facility], [address] [place] [address] Hgb 14.9 13.0 - 17.5 g/dL CERRUPINDER NERI Comment:Testing performed by : [facility], [address] [place] [address] Hct 44.5 38.9 - 50.3 % CERRUPINDER NERI Comment:Testing performed by : [facility], [address] [place] [address] Plt 200 150 - 400 K/cumm CERRUPINDER NERI Comment:Testing performed by : [facility], [address] [place] [address] MPV 8.9 6.8 - 10.4 fL CERRUPINDER [facility]J Comment:Testing performed by : [facility], [address] [place] [address] RBC 5.21 4.30 - 5.80 M/cumm CERRUPINDER [facility]J Comment:Testing performed by : [facility], [address] [place] [address] MCV 85.4 81.3 - 96.4 fL CERRUPINDER BJ Comment:Testing performed by : [facility], [address] [place] [address] MCH 28.7 27.1 - 33.3 pg CERRUPINDER [facility]J Comment:Testing performed by : [facility], [address] [place] [address] MCHC 33.5 32.3 - 35.7 g/dL CERRUPINDER [facility]J Comment:Testing performed by : [facility], [address] [place] [address] RDW CV 13.7 11.1 - 14.9 % CERRUPINDER BJ Comment:Testing performed by : [facility], [address] [place] [phone] NRBC abs 0.00 0.00 - 0.01 K/cumm [facility] Comment:Testing performed by : [facility], [address] [place] [phone] Blood 11/29/2024 11:1 5 AM VETERANS' COORDINATOR 11/29/2024 11:23 AM VETERANS' COORDINATOR Rubin Maier MD LAB BLOOD ORDERABLES Final Res ult Performing Organization Address City/[facility]/ZIP Co de Phone Number [facility] [place] [address] * Lactate dehydrogenase (LD) (11/29/2024 11:15 AM VETERANS' COORDINATOR) [facility] Lactate dehydrogenase (LDH) 132 100 - 250 Units/L Blood 11/29/2024 11:1 5 AM VETERANS' COORDINATOR 11/29/2024 11:25 AM VETERANS' COORDINATOR Rubin Maier MD LAB BLOOD ORDERABLES Final Res ult Performing Organization Address City/[facility]/ZIP Co de Phone Number [facility] [place] [address] * (ABNORMAL) Comprehensive metabolic panel (11/29/2024 11:15 AM VETERANS' COORDINATOR) Pathologist [facility] Sodium 141 135 - 145 mmol/L Potassium, pl 4.9 3.3 - 4.9 mmol/L [facility] Chloride 102 97 - 110 mmol/L [facility] CO2 32 22 - 32 mmol/L [facility] Anion gap 7 2 - 15 mmol/L [facility] BUN 17 6 - 25 mg/dL [facility] Creatinine 0.69(L) 0.80 - 1.30 mg/dL [facility] Glucose 137 70 - 199 mg/dL [facility] Comment: Interpretive Data Fasting glucose [...] pl 7.6 6.5 - 8.5 g/dL [facility] Albumin 4.3 3.5 - 5.0 g/dL [facility] Alk phos 71 40 - 130 Units/L [facility] ALT 25 7 - 55 Units/L [facility] AST 22 10 - 50 Units/L [facility] Blood 11/29/2024 11:1 5 AM VETERANS' COORDINATOR 11/29/2024 11:25 AM VETERANS' COORDINATOR Rubin Maier MD LAB BLOOD ORDERABLES Final Res ult [facility]ON [facility] Department [place] [address] * [employer] [facility] Hereditary Cancer NGS Panel, Blood (11/29/2024 11:06 AM VETERANS' COORDINATOR) Pathologist [facility] Please review the PDF for results. 12/08/2024 2:07 PM VETERANS' COORDINATOR [facility] Comment:[facility] link Blood specimen (specimen) 11/29/2024 11:06 AM VETERANS' COORDINATOR 12/08/2024 2:11 PM VETERANS' COORDINATOR us Rubin Maier MD LAB GENETIC TESTING Final Resu lt [facility] [address] [facility], [address] [phone] [facility] [address] [facility], [address] [place] [address] * COLONOSCOPY (09/19/2020 11:57 AM VETERANS' COORDINATOR) Anatomical Region Laterality Modality Other Narrative Procedure Note Jaden Barry MD - 09/19/2020 11:57 AM CST [facility] Patient Name: Ayla Forrester Procedure Date: 09/19/2020 11:57 AM Date of : 1960 Admit Type: Outpatient Age: 60 Gender: Male Attending MD: Jaden Barry M.D. Room: [facility] ENDOSCOPY ROOM 1 Note Status: Finalized [...] passed under direct vision. The PediatricColonoscope PCF-H190L [id number] was introduced through the anusand advanced to [...] hemorrhoids were medium-sized. Electronically signed by Jaden Baryr M.D. Jaden Barry M.D. 09/19/2020 1:42:01 PM Number of Addenda: 0 Note Initiated On: 09/19/2020 11:57 AM Procedure Code(s): --- Professional --- 78473, Colonoscopy, flexible; diagnostic, including collection of specimen(s) by brushing or washing, when performed (separateprocedure) Diagnosis Code(s): --- Professional --- K64.8, Other hemorrhoids K62.5, Hemorrhage of anus and rectum K57.30, Diverticulosis of large intestine without perforation orabscess without bleeding CPT copyright 2017 [employer]. All rights reserved. The codes documented in this report are preliminary and upon machine try out setter reviewmay be revised to meet current compliance requirements. Recognized by the [employer] [employer] for promoting quality in endoscopy Jaden Barry MD ENDOSCOPY PROCEDURES Final Result from Last 3 Months or Most Recently Relevant to Health Maintenance Insurance [facility] [id number] [facility] OPEN ACCESS [facility] [id number] Advance Directives For more information, please contact: [phone] * Full Code (Latest Code Status on File) Date Activated Date Inactivated Comments 09/19/2020 11:56 AM 09/19/2020 6:24 PM Care Teams Mock Up Builder Relationship Specialty Start Date End Date Ninfa Farmer MD [address] [place] [address] PCP - General 12/20/13 Rubin Maier MD [address] [facility], [address] [place] [address] Medical Oncologist/Straddle Bug Operator Medical Oncology 11/15/24
--- OUTSIDE RECORDS SUMMARY | 2025-02-17 11:11 | XMS_ITS | Continuity of Care Document ---
Author Organization [facility] Address [address] [place] [id number] Phone Care Team Providers Care Senior Stock Plan Administrator Name Role Phone Junior Holt MD Unavailable Unavailable Allergies, Adverse Reactions, Alerts Substance Reaction Status Criticality No Known Allergies Active No Inform ation Medications Medication Instructions Dosage Effective Dates (start - stop) Status Comments LISINOPRIL (unknown strength) Not Available - Active PROPRANOLOL HCL (unknown strength) Not Available - Active SIMVASTATIN (unknown strength) Not Available - Active AMITRIPTYLINE HCL (unknown strength) Not Available - Active Procedures Procedure Date RADEX SPI CRV 2/3 VIEWS OFFICE CONSULTATION Advance Directives Directive Yes / No Effective Date File Name No Information Encounters Encounter Description Practice Location Reason(s) For Visit Diagnoses Date Provider Providers Copied on Encounter [facility], [address] [place] [address], [address], tel:[phone] [facility] No Information 7 Yan[address] Pacheco. [address], [id number] . tel: [phone] [facility], [address] [facility], [place], [address], [place] tel:[phone] [facility] Cervical stenosis of spineCervical cord myelomalaciaFace t arthropathy, cervical 7 Yanet Pacheco. [address] , [place], [place], [id number] . tel: [phone] OFFICE CONSULTATION [facility], [address], [place], [address], [place] tel:[phone] [facility] My neck hurts and I get terrible headaches (chief complaint) Neck painBody mass index (BMI) 39.0-39.9, adultPersonal history of nicotine dependenceCervic al stenosis of spineCervical cord myelomalaciaFace t arthropathy, cervical 7 Yanet Pacheco. [address], [place], [place], [id number] . tel: [phone] Family History Family Member Type Diagnosis Age [...]
--- OUTSIDE RECORDS SUMMARY | 2025-02-17 11:12 | XMS_ITS | Clinical Summary ---
Author Organization [facility] Address [facility] access hospital[address] [place] [address] Care Team Providers Care Patternmaker Grader Name Role Phone Unavailable Primary Care Provider [...]
--- OUTSIDE RECORDS SUMMARY | 2025-02-17 11:12 | XMS_ITS | Encounter Summary ---
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
--- OUTSIDE RECORDS SUMMARY | 2025-02-17 11:12 | XMS_ITS | Clinical Summary ---
Author Organization [facility] Address [address] [place] [address] Care Team Providers Care Band Maker Name Role Phone Ninfa Farmer MD Primary Care Provider + [phone] Rubin Maier MD Unavailable [phone] Allergies No known active allergies Medications [...] Deficiency Prevention Take 1 tablet by mouth lead burner helper before breakfast Active albuterol HFA (PROVENTIL HFA,VENTOLIN [...] (08/30/2020): Added automatically from request for surgery [id number] Cervical spinal stenosis 10/30/2018 Headache 12/20/2013 Overview (02/19/2017): Medication overuse headache Encounters Date Type Department Care Team Description 01/11/2025 10:30 AM PLANT BUYER Office Visit [facility] Dermatology [address] [place] [address] Floor 6 [place] [address] Heidi Ruiz MD Allergic contact dermatitis due to drugs in contact with skin (Primary Dx); Malignant melanoma of left lower extremity (HCC) 01/07/2025 12:30 PM PLANT BUYER Clinical Support [facility] Surgery [address] [place] [address] 5 [place] [address] Lili Romero MD Malignant melanoma of left lower extremity (HCC) (Primary Dx) 12/31/2024 Telephone [facility] Surgery [address] [place] [address] 5 [place] [address] Lottie Ramirez RN 12/31/2024 Orders Only [facility] Surgery [address] [place] [address] 5 [place] [address] Lili Romero MD 12/31/2024 Orders Only [facility] Surgery [address] [place] [address] 5 [place] [address] Lottie Ramirez RN 12/30/2024 Telephone [facility] Surgery [address] [place] [address] 5 [place] [address] oLttie Ramirez RN 12/30/2024 Telephone [facility] Surgery [facility] Floor 8 [place] [address] Liil Romero MD Post-op Problem 12/24/2024 12:45 PM PLANT BUYER Office Visit [facility] Surgery [address] [place] [address] Floor 5 [place] [address] Lili Romero MD Malignant melanoma of left lower extremity (HCC) (Primary Dx) 12/20/2024 11:40 AM PLANT BUYER Office Visit [facility] Oncology [address] [place] [address] Floor 6 [place] [address] Rubin Maier MD Malignant melanoma of left lower extremity (HCC) 12/17/2024 Telephone [facility] Surgery [address] [place] [address] 8 [place] [address] Lili Romero MD Call Back 12/16/2024 Telephone [facility] Surgery [address] [place] [address] 5 [place] [address] Lili Romero MD 12/08/2024 12:40 PM PLANT BUYER - 12/08/2024 2:25 PM PLANT BUYER Surgery [facility] Operating Room [facility] [address] [place] [address] Lili Romero MD WIDE EXCISION LEFT LOWER EXTREMITY 12/08/2024 12:36 PM PLANT BUYER Anesthesia Event [facility] Operating Room [facility] [address] [place] [address] James Lynn MD Wilkinson, Christina A., NP 12/08/2024 8:19 AM PLANT BUYER - 12/08/2024 4:32 PM PLANT BUYER Hospital Encounter [facility] Operating Room [facility] [address] [place] [address] Lili Romero MD Malignant melanoma of left lower extremity including hip (HCC) Discharge Disposition: Discharge to home or self care 12/08/2024 6:31 AM PLANT BUYER - 12/08/2024 11:59 PM PLANT BUYER Hospital Encounter [facility] Radiology [facility] [address] [place] [address] Malignant melanoma of left lower extremity including hip (HCC) Discharge Disposition: Discharge to home or self care 12/06/2024 2:04 PM PLANT BUYER - 12/06/2024 11:59 PM PLANT BUYER Hospital Encounter [facility] - MRI [address] Floor 8 [place] [address] Malignant melanoma of left lower extremity (HCC) Discharge Disposition: Discharge to home or self care 12/03/2024 7:37 AM PLANT BUYER - 12/03/2024 11:59 PM PLANT BUYER Hospital Encounter [facility] - PET [address] Floor 8 [place] [address] Discharge Disposition: Discharge to home or self care 12/03/2024 7:37 AM PLANT BUYER - 12/03/2024 11:59 PM PLANT BUYER Hospital Encounter [facility] - PET [address] Floor 8 [place] [address] Malignant melanoma of left lower extremity (HCC) Discharge Disposition: Discharge to home or self care 12/01/2024 Telephone [facility] Dermatology [address] [facility] [address] [place] [phone] Trev Yates MD PhD stage IV melanoma 11/30/2024 Orders Only [facility] ONCOLOGY Scanning, Provider 11/29/2024 11:15 AM PLANT BUYER Lab [facility] - Lab Collection [address] [facility] Floor 6 [place] [address] Malignant melanoma of left lower extremity (HCC) 11/29/2024 11:00 AM PLANT BUYER Lab [facility] Oncology Lab [facility] Floor 6 [place] [address] Malignant melanoma of left lower extremity (HCC) 11/29/2024 10:00 AM PLANT BUYER Office Visit [facility] Oncology [address] [place] [address] Floor 6 [place] [address] Rubin Maier MD Malignant melanoma of left lower extremity (HCC) (Primary Dx) 11/29/2024 Orders Only [facility] Oncology [address] [place] [address] Floor 6 [place] [address] Rubin Maier MD Malignant melanoma of left lower extremity (HCC) (Primary Dx) 11/26/2024 1:45 PM PLANT BUYER Office Visit [facility] Surgery [facility] Floor 5 [place] [address] Lili Romero MD Malignant melanoma of left lower extremity (HCC) 11/24/2024 Telephone [facility] Surgery [facility] Floor 5 [place] [address] Lottie Ramirez RN 11/24/2024 Orders Only [facility] Surgery [facility] [address] [place] [address] Lottie Ramirez RN Malignant melanoma of left lower extremity including hip (HCC) (Primary Dx) from Last 3 Months Immunizations Immunization Administration Dates Next Due Influenza, Quadrivalent, Spl it, Intramuscular 08/30/2015 Influenza, Quadrivalent, Spl it, Preservative Free, Intramuscular 11/03/2019,09/17/2017,12/25/2016 Tdap 01/15/2020,09/05/2010 Surgical History Surgery Date Site/Laterality Comments LUMBAR PUNCTURE WO INJECTION, DIAGNOSTIC 12/29/2013 N/A SD TONSILLECTOMY PRIMARY/SECONDARY <AGE 14 11/17/1966 - 11/16/1967 [...] on file Legal Sex Male 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 PM 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 Gender Identity Not on file Sexual Orientation Not on file Obstetrics History Last Filed Vital Signs Vital Sign Reading Time Taken Comments Blood Pressure 111/70 12/24/2024 12:33 PM PLANT BUYER Pulse 65 12/24/2024 12:33 PM PLANT BUYER Temperature 36.7 C (98 F) 12/24/2024 12:33 PM PLANT BUYER Respiratory Rate 17 12/24/2024 12:3 3 PM PLANT BUYER Oxygen Saturation 97% 12/24/2024 12: 33 PM PLANT BUYER Inhaled Oxygen Concentration - - Weight 130.7 kg (288 lb 3.2 oz) 025 12:12 PM PLANT BUYER Height 177.8 cm (5' 10 ) 01/07/2025 12: 12 PM PLANT BUYER Body Mass Index 41.35 01/07/2025 12:12 PM PLANT BUYER Plan of Treatment Health Maintenance Due Date [...] SURGICAL PATHOLOGY Routine 12/08/2024 1: 54 PM PLANT BUYER Malignant melanoma of left lower extremity including hip (HCC) ANESTHESIA INTUBATION Routine 12/08/2024 12:49 PM PLANT BUYER BIOPSY SENTINEL LYMPH NODE 12/08/2024 12:36 PM PLANT BUYER Malignant melanoma of left lower extremity including hip (HCC) Case Notes 11/24 - MISSING DPC. EMAIL SENT. PADMINI 11/24@1033- Case msg sent to air pollution control engineer re: no more block time on 12/01- DMF EXCISION CYST/LESION/MASS - LOWER EXTREMITY 12/08/2024 12:36 PM PLANT BUYER Malignant melanoma of left lower extremity including hip (HCC) Case Notes 11/24 - MISSING DPC. EMAIL SENT. PADMINI 11/24@1033- Case msg sent to air pollution control engineer re: no more block time on 12/01- DMF NM LYMPHOSCINTIGRAPHY (SKIN CANCER) Schedule Routine, Read Routine (OP Routine) 12/08/2024 8:15 AM PLANT BUYER Malignant melanoma of left lower extremity including hip (HCC) MRI BRAIN W WO CONTRAST Schedule Routine, Read Routine (OP Routine) 12/06/2024 2:36 PM PLANT BUYER Malignant melanoma of left lower extremity (HCC) PET/CT FDG WHOLE BODY Schedule Routine, Read Routine (OP Routine) 12/03/2024 9:31 AM PLANT BUYER Malignant melanoma of left lower extremity (HCC) SCAN - PATHOLOGY 11/30/2024 EGFR Routine 11/29/2024 11:15 AM PLANT BUYER Malignant melanoma of left lower extremity (HCC) DIFFERENTIAL AUTO Routine 11/29/2024 11:15 AM PLANT BUYER Malignant melanoma of left lower extremity (HCC) CBC WITH AUTO DIFFERENTIAL Routine 11/29/2024 11:15 AM PLANT BUYER Malignant melanoma of left lower extremity (HCC) COMPREHENSIVE METABOLIC PANEL Routine 11/29/2024 11:15 AM PLANT BUYER Malignant melanoma of left lower extremity (HCC) LACTATE DEHYDROGENASE Routine 11/29/2024 11:15 AM PLANT BUYER Malignant melanoma of left lower extremity (HCC) THYROID FUNCTION CASCADE Routine 025 11:15 AM PLANT BUYER Malignant melanoma of left lower extremity (HCC) TEMPUS XG HEREDITARY CANCER NGS PANEL Routine 11/29/2024 11:06 AM PLANT BUYER Malignant melanoma of left lower extremity (HCC) COLONOSCOPY 09/19/2020 11:57 AM PLANT BUYER from Last 3 Months or Most Recently Relevant to Health Maintenance Results * Surgical pathology (12/08/2024 1:54 PM PLANT BUYER) Tissue specimen (specimen) (Lymph node, sentinel, NOS) 12/08/2024 1:54 PM PLANT BUYER Other (Other) 12/08/2024 2:2 2 PM PLANT BUYER Narrative PATHOLOGY [facility] - 12/15/2024 10:31 AM PLANT BUYER EPIC results best viewed via link to PDF [facility] [place] [address] Note to Patients: This report may contain [...] Gender: M : 1960 (Age: 64) Address: [address] [place], [place] [address] Hospital #: [id number] Taken:12/08/2024 Received:12/08/2024 Reported: 12/15/2024 Patient Type: [facility] Service: Oncology Location: Physician(s): MD Ninfa [...] Dermatopathology Center, Department of Pathology and Immunology, [facility], [address] [place] [address], [address], [place] [address] CLIA # [id number] Jesica Morales M.D. History: The patient is [...] blue-inferior/medial/superior. The ellipse is serially sectioned from [id number]. The lesion has a brown-orange, homogenous cut [...] Surgical Pathology and Flow Cytometry Departments at [facility] as part of an ongoing manufacturing quality engineer program and in compliance with federally mandated [...] Surgical Pathology and Flow Cytometry Departments of [facility]. It has not been cleared or approved by the U. S. Food and Drug Administration. IMAGES AND SCANNED DOCUMENTS, IF INCLUDED, ONLY VIEWABLE IN PDF VERSION OF REPORT us Lili Romero MD LAB PATHOLOGY ORDERABLES Final R esult PATHOLOGY [facility] 3rd Floor [place], [place] [phone] * Airway (12/08/2024 12:49 PM PLANT BUYER) Narrative Philomena Fry MD - 12/08/2024 12:49 PM PLANT BUYER Philomena Fry MD 12/08/2024 12:50 PM Airway [...] NM Lymphoscintigraphy (Skin Cancer) (12/08/2024 8:15 AM PLANT BUYER) Anatomical Region Laterality Modality N/A Nuclear Medicine 12/08/2024 10:1 2 AM PLANT BUYER Impressions 12/08/2024 10:53 AM PLANT BUYER [place] node(s) identified as described above for subsequent intraoperative removal with gamma probe guidance. Dictated by: Leon Edgar MD The radiology attending physician has personally reviewed this study, and had reviewed and/or edited this written report and agrees with it. Electronically signed by: Mckinley Lezama M.D. Narrative 12/08/2024 10:53 AM PLANT BUYER EXAMINATION: LYMPHOSCINTIGRAPHY DATE OF STUDY: 12/08/2024 RADIOPHARMACEUTICAL: [...] uptake at the site of injection. IMPRESSION: [place] node(s) identified as described above for subsequent intraoperative removal with gamma probe guidance. Dictated by: Leon Edgar MD The radiology attending physician has personally reviewed this study, and had reviewed and/or edited this written report and agrees with it. Electronically signed by: Mckinley Lezama M.D. Lili Romero MD IM NM PROCEDURES Final Result * MRI Brain W WO Contrast (12/06/2024 2:36 PM PLANT BUYER) Anatomical Region Laterality Modality Head and Neck N/A Magnetic Resonan ce 12/06/2024 3:27 PM PLANT BUYER Impressions 12/06/2024 3:58 PM PLANT BUYER No evidence of intracranial metastatic disease. Dictated by: Cole Trujillo MD The radiology attending physician has personally reviewed this study, and had reviewed and/or edited this written report and agrees with it. Electronically signed by: Ayden Andrade MD Narrative 12/06/2024 3:58 PM PLANT BUYER EXAMINATION: Magnetic resonance imaging (MRI) of the [...] PET/CT FDG Whole Body (12/03/2024 9:31 AM PLANT BUYER) Anatomical Region Laterality Modality Body N/A Positron Emissio n Tomography (PET) 12/03/2024 10:5 2 AM PLANT BUYER Impressions 12/03/2024 11:45 AM PLANT BUYER 1. No PET/CT evidence of residual/recurrent or [...] Mckinley Lezama M.D. Narrative 12/03/2024 11:45 AM PLANT BUYER EXAMINATION: TUMOR FDG-PET/CT IMAGING DATE OF STUDY: 12/03/2024 SCANNER: [facility] Seiratherm (SQ1). This is a high-resolution scanner, which [...] obtained. The study was interpreted on the [employer] workstation. The mean liver SUV (reported for quality improvement analyst purposes) is 3.2. The total scanned area [...] FDG-PET/CT IMAGING DATE OF STUDY: 12/03/2024 SCANNER: [facility] Seiratherm (SQ1). This is a high-resolution scanner, which [...] obtained. The study was interpreted on the [employer] workstation. The mean liver SUV (reported for quality improvement analyst purposes) is 3.2. The total scanned area [...] Final Result * eGFR (11/29/2024 11:15 AM PLANT BUYER) eGFR >90 >=60 mL/min/1. 73 m2 Comment: [...] of Race in Diagnosing Kidney Disease, JASN 2020). The CKD-EPI equation should not be used for patients with unstable renal function and has not been validated in children and those over 70. Current interpretive data was last reviewed 2021. Blood 11/29/2024 11:1 5 AM PLANT BUYER 11/29/2024 11:25 AM PLANT BUYER us Rubin Maier MD LAB BLOOD ORDERABLES Final Res ult [facility] Department [place] [address] * Differential, auto (11/29/2024 11:15 AM PLANT BUYER) Neutrophil abs 4.1 1.5 - 6.5 K/cumm Comment:Testing performed by : [facility], [address] [place] [phone] Lymphocyte abs 2.8 0.8 - 3.3 K/cumm CERRUPINDER NERI Comment:Testing performed by : [facility], [address] [place] [phone] Monocyte abs 0.6 0.2 - 0.8 K/cumm CERRUPINDER NERI Comment:Testing performed by : [facility], [address] [place] [phone] Eosinophil abs 0.1 0.0 - 0.5 K/cumm CERRUPINDER NERI Comment:Testing performed by : [facility], [address] [place] [phone] Basophil abs 0.1 0.0 - 0.1 K/cumm CERNER BJ Comment:Testing performed by : [facility], [address] [place] [phone] Neutrophil pct 53.7 % CERNER BJ Comment: Interpretive Data Percent cell count reference ranges are not reported, since discordance with absolute values may lead to misinterpretation of CBC data. Current Interpretive Data was last revised on 2018. Testing performed by: [facility], [address] [place] [phone] Lymphocyte pct 36.8 % CERNER BJ Comment: Interpretive Data Percent cell count reference ranges are not reported, since discordance with absolute values may lead to misinterpretation of CBC data. Current Interpretive Data was last revised on 2018. Testing performed by: [facility], [address] [place] [phone] Monocyte pct 7.5 % CERNER BJ Comment: Interpretive Data Percent cell count reference ranges are not reported, since discordance with absolute values may lead to misinterpretation of CBC data. Current Interpretive Data was last revised on 2018. Testing performed by: [facility], [address] [place] [phone] Eosinophil pct 1.3 % RAMON NERI Comment: Interpretive Data Percent cell count reference ranges are not reported, since discordance with absolute values may lead to misinterpretation of CBC data. Current Interpretive Data was last revised on 2018. Testing performed by: [facility], [address] [place] [phone] Basophil pct 0.7 % RAMON NERI Comment: Interpretive Data Percent cell count reference ranges are not reported, since discordance with absolute values may lead to misinterpretation of CBC data. Current Interpretive Data was last revised on 2018. Testing performed by: [facility], [address] [place] [phone] Blood 11/29/2024 11:1 5 AM PLANT BUYER 11/29/2024 11:23 AM PLANT BUYER us Rubin Maier MD LAB BLOOD ORDERABLES Final Res ult Performing Organization Address [facility] Co de Phone Number [facility] Department [place] [address] * Thyroid Function Hendry (11/29/2024 11:15 AM PLANT BUYER) TSH 0.62 0.30 - 4.20 mcIUnit/mL Blood 11/29/2024 11:1 5 AM PLANT BUYER 11/29/2024 11:25 AM PLANT BUYER us Rubin Maier MD LAB BLOOD ORDERABLES Final Res ult Performing Organization Address [facility] Co de Phone Number [facility] Department [place] [address] * CBC with auto differential (11/29/2024 11:15 AM PLANT BUYER) WBC 7.7 3.8 - 9.9 K/cumm Comment:Testing performed by : [facility], [address] [place], [place] [phone] Hgb 14.9 13.0 - 17.5 g/dL CERNER BJ Comment:Testing performed by : [facility], [address] [place], [place] [phone] Hct 44.5 38.9 - 50.3 % CERNER BJ Comment:Testing performed by : [facility], [address] [place], [place] [phone] Plt 200 150 - 400 K/cumm CERNER BJ Comment:Testing performed by : [facility], [address] [place], [place] [phone] MPV 8.9 6.8 - 10.4 fL CERNER BJ Comment:Testing performed by : [facility], [address] [place], [place] [phone] RBC 5.21 4.30 - 5.80 M/cumm CERNER BJ Comment:Testing performed by : [facility], [address] [place], [place] [phone] MCV 85.4 81.3 - 96.4 fL CERNER BJ Comment:Testing performed by : [facility], [address] [place], [place] [phone] MCH 28.7 27.1 - 33.3 pg CERNER BJ Comment:Testing performed by : [facility], [address] [place] [address] MCHC 33.5 32.3 - 35.7 g/dL CERNER BJ Comment:Testing performed by : [facility], [address] [place] [address] RDW CV 13.7 11.1 - 14.9 % CERNER BJ Comment:Testing performed by : [facility], [address] [place] [address] NRBC abs 0.00 0.00 - 0.01 K/cumm CERNER BJ Comment:Testing performed by : [facility], [facility] [place] [address] Blood 11/29/2024 11:1 5 AM PLANT BUYER 11/29/2024 11:23 AM PLANT BUYER Rubin Maier MD LAB BLOOD ORDERABLES Final Res ult Performing Organization Address City/[facility]/ZIP Co de Phone Number [facility] Department [place] [address] * Lactate dehydrogenase (LD) (11/29/2024 11:15 AM PLANT BUYER) Lactate dehydrogenase (LDH) 132 100 - 250 Units/L Blood 11/29/2024 11:1 5 AM PLANT BUYER 11/29/2024 11:25 AM PLANT BUYER Rubin Maier MD LAB BLOOD ORDERABLES Final Res ult Performing Organization Address [facility] Co de Phone Number [facility] Department [place] [address] * (ABNORMAL) Comprehensive metabolic panel (11/29/2024 11:15 AM PLANT BUYER) Pathologist [facility] Sodium 141 135 - 145 mmol/L Potassium, pl 4.9 3.3 - 4.9 mmol/L [facility] Chloride 102 97 - 110 mmol/L [facility] CO2 32 22 - 32 mmol/L [facility] Anion gap 7 2 - 15 mmol/L [facility] BUN 17 6 - 25 mg/dL [facility] Creatinine 0.69(L) 0.80 - 1.30 mg/dL [facility] Glucose 137 70 - 199 mg/dL [facility] Comment: Interpretive Data Fasting glucose >/= 126 [...] Calcium 10.8(H) 8.5 - 10.3 mg/dL CERNER [facility] Bilirubin, total 0.5 0.1 - 1.2 mg/dL CERNER [facility] Protein, pl 7.6 6.5 - 8.5 g/dL CERNER [facility] Albumin 4.3 3.5 - 5.0 g/dL CERNER [facility] Alk phos 71 40 - 130 Units/L C[facility] ALT 25 7 - 55 Units/L CERNER [facility] AST 22 10 - 50 Units/L CERNER [facility] Blood 11/29/2024 11:1 5 AM PLANT BUYER 11/29/2024 11:25 AM PLANT BUYER Rubin Maier MD LAB BLOOD ORDERABLES Final Res ult Performing Organization Address City/[facility]/ZIP Co de Phone Number [facility] Department [place] [address] * [facility] Hereditary Cancer NGS Panel, Blood (11/29/2024 11:06 AM PLANT BUYER) Pathologist [facility] Please review the PDF for results. 12/08/2024 2:07 PM PLANT BUYER [facility] Comment:[facility] link Blood specimen (specimen) 11/29/2024 11:06 AM PLANT BUYER 12/08/2024 2:11 PM PLANT BUYER Rubin Maier MD LAB GENETIC TESTING Final Resu lt [facility] [address], [address] [place] [address], [facility] [[email or web address]] [phone] [facility] [address], [address] [place] [address] * COLONOSCOPY (09/19/2020 11:57 AM PLANT BUYER) Anatomical Region Laterality Modality Other Narrative Procedure Note Jaden Barry MD - 09/19/2020 11:57 AM CST [facility] Patient Name: Ayla Forrester Procedure Date: 09/19/2020 11:57 AM Date of : 1960 Admit Type: Outpatient Age: 60 Gender: Male Attending MD: Jaden Barry M.D. Room: [facility] ENDOSCOPY ROOM 1 Note Status: Finalized Patient [...] passed under direct vision. The PediatricColonoscope PCF-H190L [id number] was introduced through the anusand advanced to [...] 11:57 AM Procedure Code(s): --- Professional --- 38244, Colonoscopy, flexible; diagnostic, including collection of specimen(s) by brushing or washing, when performed (separateprocedure) Diagnosis Code(s): --- Professional --- K64.8, Other hemorrhoids K62.5, Hemorrhage of anus and rectum K57.30, Diverticulosis of large intestine without perforation orabscess without bleeding CPT copyright 2017 [employer]. All rights reserved. The codes documented in this report are preliminary and upon surgical services asst reviewmay be revised to meet current compliance requirements. Recognized by the [employer] for promoting quality in endoscopy Jaden Barry MD ENDOSCOPY PROCEDURES Final Result from Last 3 Months or Most Recently Relevant to Health Maintenance Insurance COUNT INCLUDES THE [facility] [address] [facility] Member Subscriber Plan / Payer ( fective 2019-Present) Name:Ayla Forrester Relation to Subscriber:Self Name:Ayla Forrester Payer ID:[id number] Type:[employer] HMO/PPO Address: [address] [place] [id number] [employer] OPEN ACCESS COUNT INCLUDES THE [facility] [id number] Advance Directives For more information, please contact: [phone] * Full Code (Latest Code Status on File) Date Activated Date Inactivated Comments 09/19/2020 11:56 AM 09/19/2020 6:24 PM Care Teams Band Maker Relationship Specialty Start Date End Date Ninfa Farmer MD [address] [place] [address] PCP - General 12/20/13 Rubin Maier MD [address] [facility], [address] [place] [address] Medical Oncologist/Fund Director Medical Oncology 11/15/24
== END 2025-02-17 10:23 | disposition home or self-care (01) ==
PROVIDERS: PCP Internal Medicine; Visit Provider Internal Medicine
DX: K76.89 Other specified diseases of liver (principal); K76.0 Fatty (change of) liver, not elsewhere classified
CPT/HCPCS: 74183; A9577

== ENCOUNTER 2025-09-19 02:05 | Day surgery (SDC) | payer OTHER, SELFPAY ==
[2025-09-07 11:46] VITALS: BMI 40.5
--- OUTSIDE RECORDS SUMMARY | 2025-09-19 02:08 | XMS_ITS | Clinical Summary ---
Author Organization [facility] Address [facility] [place] [address] Care Team Providers Care Director Occupational Name Role Phone Unavailable Primary Care Provider [...] Td Vaccines ( 1 - Tdap) 1981 Pneumococcal Vaccine: 50+ Ye ars (1 of 1 - PCV) 2012 Zoster Vaccines (1 of 2) 2012 COVID-19 Vaccine ( - 2024-2 6 season) 2025 Influenza Adult (#1) 2025 RSV Immunization or 60+ Years (1 - 1-dose 75+ series) 2037 Hepatitis A Vaccines Aged Out No long er eligible based on patient's age to complete this topic Meningococcal B Vaccine Aged Out No l onger eligible based on patient's age to complete this topic Meningococcal Vaccine Aged Out No alfonso brock eligible based on patient's age to complete this topic RSV Immunizations Under 20 Months Aged Out No longer eligible based on patient's age to complete this topic
--- OUTSIDE RECORDS SUMMARY | 2025-09-19 02:08 | XMS_ITS | Clinical Summary ---
Author Organization [facility] Address [address] [place] [address] Care Team Providers Care Food And Drug Research Scientist Name Role Phone Ninfa Farmer MD Primary Care Provider [phone] Rubin Maier MD Unavailable [phone] Allergies No known active allergies Medications [...] Deficiency Prevention Take 1 tablet by mouth sustainability manager before breakfast Active albuterol HFA (PROVENTIL HFA,VENTOLIN [...] for pain 10 tablet 12/08/19 25 Active mupirocin (BACTROBAN) 2 % ointmentIndicat [...] resolved 30 g 3 01/11/20 25 Active triamcinolone (KENALOG) 0.1 % ointmentIndicat ions:Rash Apply topically 2 (two) times a day as needed for rash (for rash on leg) 80 g 1 04/26/20 25 Active Active Problems Problem Noted Date Diagnosed Date Malignant melanoma of left lower extremity 12/08 Malignant melanoma of left lower extremity inclu ding hip 11/24/2024 Melena 08/30/2020 Overview (08/30/2020): Added automatically from request for surgery [id number] Cervical spinal stenosis 10/30/2018 Headache 12/20/2013 Overview (02/19/2017): Medication overuse headache Encounters Date Type Department Care Team Description 08/02/2025 1:00 PM CDT Office Visit [facility] Medicine Dermatology [facility] [address] [place] [id number] Heidi Ruiz MD Rash (Primary Dx); Seborrheic keratosis; Multiple benign nevi; History of melanoma from Last 3 Months Immunizations Immunization Administration Dates Next Due Influenza, Quadrivalent, Spl it, Intramuscular 08/30/2015 Influenza, Quadrivalent, Spl it, Preservative Free, Intramuscular 11/03/2019,09/17/2017,12/25/2016 Tdap 01/15/2020,09/05/2010 Surgical History Surgery Date Site/Laterality Comments LUMBAR PUNCTURE WO INJECTION, DIAGNOSTIC 12/29/2013 N/A HI TONSILLECTOMY PRIMARY/SECONDARY <AGE 14 11/17/1966 - 11/16/1967 [...] Smoking Tobacco: Former Cigarettes 0.5 20 1 7 1996 Vaping Started: 2021 Smokeless Tobacco: Current [...] on file Legal Sex Male 4:49 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 Gender Identity Not on file Sexual Orientation Not on file Last Filed Vital Signs Vital Sign Reading Time Taken Comments Blood Pressure 111/70 12/24/2024 12:33 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 Pulse 65 12/24/2024 12:33 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 Temperature 36.7 C (98 F) 12/24/2024 12:33 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 Respiratory Rate 17 12/24/2024 12:3 3 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 Oxygen Saturation 97% 12/24/2024 12: 33 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 Inhaled Oxygen Concentration - - Weight 130.7 kg (288 lb 3.2 oz) 025 12:12 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 Height 177.8 cm (5' 10) 01/07/2025 12: 12 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 Body Mass Index 41.35 01/07/2025 12:12 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 Plan of Treatment Health Maintenance Due Date Last Done Comments Depression Screening 1960 Hepatitis C Screening 1960 Prostate Cancer Screening-PSA 1962 Hepatitis B Screening 1980 Regular Well Visit/Exam 18-64 1980 Zoster Vaccine (1 of 2) 2012 Influenza Vaccine (#1) 2025 9, 09/17/2017, 12/25/2016, Additional history exists DTaP/Tdap/Td [...] Procedure Name Priority Date/Time Associated Diagnosis Comments COLONOSCOPY 09/19/2020 11:57 AM EXPORT FREIGHT CLERK from Last 3 Months or Most Recently Relevant to Health Maintenance Results * COLONOSCOPY (09/19/2020 11:57 AM EXPORT FREIGHT CLERK) Anatomical Region Laterality Modality Other Narrative Procedure Note Jaden Barry MD - 09/19/2020 11:57 AM CST [facility] Patient Name: Chaparro Forrester Procedure Date: 09/19/2020 11:57 AM Date of : 1960 Admit Type: Outpatient Age: 60 Gender: Male Attending MD: Jaden Barry M.D. Room: [facility] ENDOSCOPY ROOM 1 Note Status: Finalized [...] passed under direct vision. The PediatricColonoscope [id number] was introduced through the anusand advanced to [...] 11:57 AM Procedure Code(s): --- Professional --- 76246, Colonoscopy, flexible; diagnostic, including collection of specimen(s) by brushing or washing, when performed (separateprocedure) Diagnosis Code(s): --- Professional --- K64.8, Other hemorrhoids K62.5, Hemorrhage of anus and rectum K57.30, Diverticulosis of large intestine without perforation orabscess without bleeding CPT copyright 2017 [employer]. All rights reserved. The codes documented in this report are preliminary and upon bsa officer reviewmay be revised to meet current compliance requirements. Recognized by the [employer] for promoting quality in endoscopy Jaden Barry MD ENDOSCOPY PROCEDURES Final Result from Last 3 Months or Most Recently Relevant to Health Maintenance [facility] OPEN ACCESS [facility] [id number] [facility] [id number] [facility] [id number] Advance Directives For more information, please contact: [phone] * Full Code (Latest Code Status on File) Date Activated Date Inactivated Comments 09/19/2020 11:56 AM 09/19/2020 6:24 PM Care Teams Food And Drug Research Scientist Relationship Specialty Start Date End Date Ninfa Farmer MD [address] [place] [address] PCP - General 12/20/13 Rubin Maier MD [address] [facility], [address] [place] [address] Medical Oncologist/Radiosonde Specialist Medical Oncology 11/15/24
--- OUTSIDE RECORDS SUMMARY | 2025-09-19 02:08 | XMS_ITS | Encounter Summary ---
Author Organization 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
--- OUTSIDE RECORDS SUMMARY | 2025-09-19 02:08 | XMS_ITS | Clinical Summary ---
Author Organization [facility] Address [facility] [place] [address] Care Team Providers Care Grain Origination Specialist Name Role Phone Miquel TIAN MD, Keanu Unavailable [phone] Per Farmer MD Primary Care Provider [phone] Source Comments [facility],non-owned Affiliates and Associated Physician Practices is amultiple site organization consisting of ambulatory clinics and hospital sitesin [place], [place], [place] and [place]. This disclosure is being madepursuant to the Care Everywhere program and may not contain all information available regarding this patient. Last updated 18.[facility] [employer] Allergies No known active allergies Medications * Be aware that medications may not be up to date on this document. Alwaysverify current medications with the patient. Potassium Chloride Liss CR (KLOR-CON M20 PO) Take 3 tablets by mouth every morning Active Multiple Vitamins-Minerals (EQ COMPLETE MULTIVIT ADULT 50+ PO) Take 1 Tab by mouth once daily. Active calcium polycarbophil (FIBERCON) 625 MG tablet Take 625 mg by mouth 2 times daily. 4 tablets in the morning and 2 tablets in the evening Active albuterol HFA (PROVENTIL;VENTOLI N;PROAIR) 108 (90 Base) MCG/ACT inhaler every 6 hours as needed 9 Active fluticasone propionate (FLONASE) 50 MCG/ACT nasal spray once daily as needed 0 Active tadalafil (CIALIS) 20 MG tablet once daily as needed 9 Active lisinopril-hydroCH LOROthiazide (PRINZIDE; ZESTORETIC) 20-25 MG tablet TAKE 1 TABLET BY MOUTH IN THE MORNING AND 1/2 TABLET BY MOUTH IN THE EVENING 8 Active rosuvastatin (CRESTOR) 20 MG tablet Take 20 mg by mouth at bedtime 8 Active oxyCODONE-acetamin ophen (PERCOCET) 10-325 MG tablet Take 0.5-1 tablets by mouth every 6 hours as needed 28 tablet 0 Active celecoxib (CELEBREX) 200 MG capsule Take 1 capsule by mouth 2 times daily 60 capsule 0 Active Active Problems Problem Noted Date Diagnosed [...] at Not on file Legal Sex Male 11:03 AM CDT Gender Identity Not on file Sexual [...] 10:07 AM CDT Height 180.3 cm (5' 11) 07/18/2020 10: 07 AM CDT Body Mass Index 39.55 07/18/2020 10:07 AM CDT Plan of Treatment Health Maintenance Due Date Last Done Comments COLOGAIRAMRD (AGES 45-75) - COLON CA SCREENING 1962 CT COLONOGRAPHY - COLON CA SCREENING 1962 FIT - COLON CA SCREENING 1962 FLEX SIG - COLON CA SCREENING 1962 HIV SCREENING 1977 HEPATITIS C SCREENING 06/01/1980 DTAP/TDAP/TD VACCINES (1 - Tdap) 1981 PNEUMOCOCCAL VACCINE 50+ (1 of 1 - PCV) 2012 ZOSTER VACCINE (1 of 2) 2012 SCREENING FOR DIABETES 07/19/2023 0, 07/18/2020, 06/27/2020, Additional history exists DEPRESSION SCREENING 11/17/2024 COVID-19 VACCINE (1 - season) 2025 INFLUENZA VACCINE (#1) 2025 COLON MONITORING 09/19/2030 09/19/2020 COLONOSCOPY - COLON CA SCREENING 09/19/2030 09/19/2020 [...] this topic Medical Devices Implanted Type Area Oscillograph Technician Device Identifier Shelf Expiration Date Model / Serial / Lot Chioma Acetabular Shell, 58mm Implanted:Qty: 1 on 07/05/2014 by Keanu Lafleur IV, MD at [facility] Left: Hip 05/16/2024 / / [id number] Chioma, Acetabular Liner, 32mm Implanted:Qty: 1 on 07/05/2014 by Keanu Lafleur IV, MD at [facility] Left: Hip 04/15/2018 / / [id number] Chioma Femoral Stem, Size 6 Implanted:Qty: 1 on 07/05/2014 by Keanu Lafleur IV, MD at [facility] Left: Hip 01/14/2019 [id number] / / [id number] Chi[employer] Femoral Head, 32mm Plus 3.5mm Implanted:Qty: 1 on 07/05/2014 by Keanu Lafleur IV, MD at [facility] Left: Hip 09/15/2023 [id number] / / [id number] Scrw Bone Yary Ii Tib 6.5mm X 35mm Implanted:Qty: 1 on 04/20/2020 by Keanu Lafleur IV, MD at [facility] Left: Knee [employer] 05/17/2022 [id number] / / [id number] Scrw Bone Yary Ii Tib 6.5mm X 40mm Implanted:Qty: 1 on 04/20/2020 by Keanu Lafleur IV, MD at [facility] Left: Knee [employer] 06/28/2028 [id number] / / [id number] Legion Por Keane Tib Base L Sz 7 Implanted:Qty: 1 on 04/20/2020 by Keanu Lafleur IV, MD at [facility] Left: Knee [employer] 06/14/2028 [id number] / / [id number] Legion Por Cr Fem L Sz 5 Implanted:Qty: 1 on 04/20/2020 by Keanu Lafleur IV, MD at [facility] Left: Knee [employer] 10/26/2029 [id number] / / [id number] Ins Tib 7-8 13mm Kn Xlpe Dsh Legion Implanted:Qty: 1 on 04/20/2020 by Keanu Lafleur IV, MD at [facility] Left: Knee [employer] 05/30/2029 [id number] / / [id number] Stem Tib 55mm 18mm Prfx Mtphsl Kn Implanted:Qty: 1 on 04/20/2020 by Keanu Lafleur IV, MD at [facility] Left: Knee [employer] 09/01/2028 [id number] / / [id number] Screw Bsplt 30mm 6.5mm Gns2 Kn Tib Por Implanted:Qty: 2 on 04/20/2020 by Keanu Lafleur IV, MD at [facility] Left: Knee [employer] 12/13/2029 [id number] / / [id number] Legion Por Cr Fem R Sz 5 Implanted:Qty: 1 on 07/18/2020 by Keanu Lafleur IV, MD at [facility] Right: Knee [employer] 04/01/2030 [id number] / / [id number] Ins Xlpe Dished Artc Sz 7-8 15mm Implanted:Qty: 1 on 07/18/2020 by Keanu Lafleur IV, MD at [facility] Right: Knee [employer] 06/14/2027 [id number] / / [id number] Stem Tib 55mm 18mm Prfx Mtphsl Kn Implanted:Qty: 1 on 07/18/2020 by Keanu Lafleur IV, MD at [facility] Right: Knee [employer] 02/08/2030 [id number] / / [id number] Legion Por Keane Tib Base R Sz 7 Implanted:Qty: 1 on 07/18/2020 by Keanu Lafleur IV, MD at [facility] Right: Knee [employer] 12/21/2029 [id number] / / [id number] Screw Bsplt 20mm 6.5mm Gns2 Kn Tib Por Implanted:Qty: 1 on 07/18/2020 by Keanu Lafleur IV, MD at [facility] Right: Knee [employer] 02/25/2030 [id number] / / [id number] Scrw Bone Yary Ii Tib 6.5mm X 40mm Implanted:Qty: 1 on 07/18/2020 by Keanu Lafleur IV, MD at [facility] Right: Knee [employer] 04/19/2029 [id number] / / [id number] Screw Bsplt 25mm 6.5mm Gns2 Kn Tib Por Implanted:Qty: 1 on 07/18/2020 by Keanu Lafleur IV, MD at [facility] Right: Knee [employer] 02/21/2030 [id number] / / [id number] Scrw Bone Yary Ii Tib 6.5mm X 35mm Implanted:Qty: 1 on 07/18/2020 by Keanu Lafleur IV, MD at [facility] Right: Knee [employer] 02/25/2030 [id number] / / [id number] Procedures Procedure Name Priority Date/Time Associated Diagnosis Comments BASIC METABOLIC PANEL (CALCIUM TOTAL) AM Draw 07/19/2020 2:52 AM CDT Knee arthropathy from Last 3 Months or Most Recently Relevant to Health Maintenance Results * (ABNORMAL) BASIC METABOLIC PANEL (CALCIUM TOTAL) (07/19/2020 2:52 AM CDT) Glucose 125(H) 70 - 105 mg/dL 07/19/2020 3:25 AM CDT [facility] Sodium 136 136 - 145 mmol/L 07/19/2020 3:25 AM CDT [facility] Potassium 4.1 3.5 - 5.1 mmol/L 07/19/2020 3:25 AM CDT [facility] Chloride 99 98 - 107 mmol/L 07/19/2020 3:25 AM CDT [facility] CO2 29 23 - 31 mmol/L 07/19/2020 3:25 AM CDT [facility] Calcium 9.1 8.4 - 10.4 mg/dL 07/19/2020 3:25 AM CDT [facility] Anion Gap 8 8 - 16 mmol/L 07/19/2020 3:25 AM CDT [facility] BUN 23 8.4 - 25.7 mg/dL 07/19/2020 3:25 AM CDT [facility] Creatinine 0.98 0.72 - 1.25 mg/dL 07/19/2020 3:25 AM CDT [facility] eGFR by MDRD >60 >60 mL/min/1.7 3m2 07/19/2020 3:25 AM CDT [facility] eGFR by MDRD >60 >60 mL/min/1.7 3m2 07/19/2020 3:25 AM CDT [facility] Blood BLOOD SPECIMEN / Unknown Venipuncture / Unknown 07/19/2020 2:52 AM CDT 07/19/2020 3:02 AM CDT us Keanu Lafleur IV, MD LAB - CHEMISTRY ORDERABLES Fin al Result [facility] [address] [place] [address] from Last 3 Months or Most Recently Relevant to Health Maintenance Insurance [employer] Advance Directives * Full Code (Latest Code Status on File) Date Activated Date Inactivated Comments 07/18/2020 3:43 PM 07/20/2020 12:28 PM * Full Code Date Activated Date Inactivated Comments 04/20/2020 3:34 PM 04/21/2020 4:00 PM * Full Code Date Activated Date Inactivated Comments 07/05/2014 12:38 PM 07/08/2014 4:13 PM Care Teams Grain Origination Specialist Relationship Specialty Start Date End Date Per Farmer MD [address] [place] [address] PCP - General Cardiovascular Disease 05/12/14 [place] [address] [facility] [address] [place] [address] Orthopedic Surgery 05/12/14
[2025-09-19 10:09] VITALS: BP 114/75; PULSE 60; RESP 18; TEMP 36.1; O2SAT 98
[2025-09-19] MEDS: LACTATED RINGERS 1,000 ML 150 ML IV CONT (10:19)
--- NOTE | 2025-09-19 10:51 | WPDANESEPPF ---
Anes - Initial Pre Proc Eval Procedure: Operation Date: 09/19/25 11:00 Proposed Procedures p Diagnostic Colonoscopy - Davis Kwon DO Date/Time: 09/19/25 10:51 Surgeon: Davis Kwon DO Pre Op Diagnosis: hematochezia Patient Data Age: 65 Gender: M Height: 1.8 m Weight: 128.5 kg Last Vital Signs Temp 36.1 C L 09/19/25 10:09 Pulse 60 09/19/25 10:09 Resp 18 09/19/25 10:09 BP 114/75 09/19/25 10:09 Pulse Ox 98 09/19/25 10:09 O2 Del Method Room Air 09/19/25 10:09 Allergies Allergy/AdvReac Type Severity Reaction Status Date / Time No Known Allergies Allergy Verified 09/19/25 10:04 Home Medications ?Medication ?Instructions ?Recorded ?Confirmed ?Type lisinopril 20 1 tablet PO HS 01/15/20 09/19/25 History mg-hydrochlorothiazide 25 mg tablet lisinopril 20 1 tablet PO QAM 01/15/20 09/19/25 History mg-hydrochlorothiazide 25 mg tablet potassium chloride 20 mEq 60 meq PO DAILY 01/15/20 09/19/25 History tablet,extended release(part/cryst) (Klor-Con M) rosuvastatin 20 mg tablet 20 mg PO DAILY 01/15/20 09/19/25 History amlodipine 5 mg tablet 5 mg PO DAILY 09/07/25 09/19/25 History aspirin 81 mg capsule 81 mg PO DAILY 09/07/25 09/19/25 History fenofibrate 54 mg tablet 54 mg PO DAILY 09/07/25 09/19/25 History tirzepatide 2.5 mg/0.5 mL 2.5 mg subcut WEEKLY 09/07/25 09/07/25 History subcutaneous pen injector (Mounjaro) Laboratory Tests 09/19/25 10:15 POC Capillary Glucose 121 H mg/dl (65-105) Patient hx anesthesia problems: none Family hx anesthesia problems: none Results Review: All pre-operative results and documents have been reviewed as part of the pre-operative evaluation. PMFSH Past Medical History Medical History Dyslipidemia Hypertension Surgical History Surgical History History of total left hip arthroplasty S/P left knee arthroscopy Social History Social History Years smoked: 20 Smoking status: Former smoker Tobacco type: cigarettes Additional smoking assessment comments: stopped smoking cigarettes 30 years ago Alcohol intake: never Alcohol use details: Drank a few beers last night Substance use: current Substance use type: marijuana Last use: smokes marijuana daily Living arrangements: with family Spiritual care concerns: No Anes - Eval Final PreProcedure Day of Procedure 09/19/25 10:51 Patient weight: obese Heart: regular rate and rhythm Lungs: clear to auscultation Airway: Mallampati scale class III Neurological: alert and oriented Last oral intake: >/= 8 hours ASA classification: III Emergent: no Anesthetic plan: proceed Anesthesia type and monitoring: general GIVS and standard monitoring Results Review: All pre-operative results and documents have been reviewed as part of the pre-operative evaluation. Informed Consent: The patient's anesthetic plan and its attendant risks and benefits were discussed with the patient/family/POA. Questions were solicited and answers provided to the satisfaction of the patient/family/POA.
--- NOTE | 2025-09-19 11:11 | PM.IMHP ---
H&P: HPI History of Present Illness Date/Time: 09/19/25 11:11 Chief Complaint: hematochezia Narrative: this is a 65-year-old man who presents for colonoscopy. His last colonoscopy was about 5 years ago and was normal. He has noted hematochezia over the past several months. He denies any pain. He denies any family history of colon cancer. Review of Systems Review of Systems: All systems reviewed & are unremarkable except as noted in HPI and below Constitutional: Constitutional: Denies chills, Denies fever(s), Denies headache(s) and Denies weight loss Eyes: Eyes: Denies change in vision ENT: Denies dizziness, Denies headache(s), Denies neck mass and Denies throat swelling Cardiovascular: Cardiovascular: Denies chest pain, Denies lightheadedness and Denies dyspnea Respiratory: Respiratory: Denies cough, Denies dyspnea and Denies wheezing Gastrointestinal: Gastrointestinal: Denies abdominal pain, Denies change in bowel habits, Denies nausea and Denies vomiting Genitourinary: Genitourinary: Denies hematuria and Denies dysuria Musculoskeletal: Musculoskeletal: Reports as per HPI Integumentary/Breasts: Skin/Breast: Reports as per HPI Neurologic: Denies dizziness and Denies headache(s) Allergic/Immunologic: Allergic/Immunologic: Denies throat swelling and Denies wheezing PMF Past Medical History Medical History (Updated 09/19/25 @ 11:12 by Davis Kwon DO) Dyslipidemia Hypertension Surgical History Surgical History History of total left hip arthroplasty S/P left knee arthroscopy Social History Social History Years smoked: 20 Smoking status: Former smoker Tobacco type: cigarettes Additional smoking assessment comments: stopped smoking cigarettes 30 years ago Alcohol intake: never Alcohol use details: Drank a few beers last night Substance use: current Substance use type: marijuana Last use: smokes marijuana daily Living arrangements: with family Spiritual care concerns: No Meds Home Medications and Allergies Home Medications ?Medication ?Instructions ?Recorded ?Confirmed ?Type lisinopril 20 1 tablet PO HS 01/15/20 09/19/25 History mg-hydrochlorothiazide 25 mg tablet lisinopril 20 1 tablet PO QAM 01/15/20 09/19/25 History mg-hydrochlorothiazide 25 mg tablet potassium chloride 20 mEq 60 meq PO DAILY 01/15/20 09/19/25 History tablet,extended release(part/cryst) (Klor-Con M) rosuvastatin 20 mg tablet 20 mg PO DAILY 01/15/20 09/19/25 History amlodipine 5 mg tablet 5 mg PO DAILY 09/07/25 09/19/25 History aspirin 81 mg capsule 81 mg PO DAILY 09/07/25 09/19/25 History fenofibrate 54 mg tablet 54 mg PO DAILY 09/07/25 09/19/25 History tirzepatide 2.5 mg/0.5 mL 2.5 mg subcut WEEKLY 09/07/25 09/07/25 History subcutaneous pen injector (Mounjuan mro) Allergies Allergy/AdvReac Type Severity Reaction Status Date / Time No Known Allergies Allergy Verified 09/19/25 10:04 Vital Signs Vital Signs - 24 hr 09/19/25 10:09 Temperature 97 F L Pulse Rate 60 Respiratory Rate 18 Blood Pressure 114/75 Pulse Oximetry 98 Oxygen Delivery Room Air Exam Const: General: no acute distress and alert Orientation/consciousness: patient oriented x3 HENMT: Head: normocephalic and atraumatic Ears: hearing grossly normal bilaterally Face/Nose/Sinus: Normal nares present Mouth: Yes Normal oral and palatal mucosa present Eyes: Periorbital: periorbital findings normal Sclera: sclerae normal EOM: EOMs intact bilaterally Neck: Neck: normal visual inspection, no lymphadenopathy and trachea midline Chest: Chest palpation & inspection: normal inspection of the chest Resp: Effort & Inspection: normal respiratory effort Auscultation: clear to auscultation bilaterally Cardio: Jugular venous distension: no JVD Rate: regular rate Rhythm: regular rhythm Heart sounds: S1 normal heart sound present and S2 normal heart sound present Peripheral pulses: Peripheral pulses 2+ throughout GI: Inspection: normal to inspection GI Palp: Yes Soft to palpation, No Tenderness to palpation present (GI), No Guarding due to palpation present (GI) and No Rebound tenderness present Percussion: Yes normal to percussion Auscultation: normal bowel sounds : General: Yes no CVA tenderness Back/Spine/Pelvis: Back: no CVA tenderness Neuro: General: patient oriented x3, no focal motor deficits and CN's II-XI intact bilaterally Cognition (Neuro): normal cognition Speech: normal speech Motor exam (neuro): 5/5 motor strength present throughout Extrem: General: capillary refill normal and no clubbing, cyanosis or edema Assessment and Plan Assessment and plan (1) Hematochezia: Code(s): K92.1 - Melena Status: Acute Assessment and Plan: I have recommended colonoscopy. I have discussed the procedure, risks, benefits, and alternatives. Questions were answered. Patient is agreeable to proceed.
--- NOTE | 2025-09-19 11:42 | S_PTH ---
PATIENT: Chaparro Bowen LOC: [facility] Membrneo#:[id number] AGE/SX: 65/M ROOM: RE09/19/[address]: Davis Kwon DO : 1960 BED: DIS: 09/19/2025 SPEC #: [id number] RECD: 09/19/25 12:48 STATUS: ROSENDO RECarlota #: [id number] SAGAR: 09/19/25 11:[address]: Davis Kwon DEPT: [facility] Surgical RECD BY: Jane Tran ENTERED: 09/19/25 12:48 SP TYPE: Surgical OTHR DR: Ninfa Farmer MD Tissues: A - Colon Polypectomy Procedures: Hematoxylin and Eosin Stain Gross and Microscopic Level 4
[2025-09-19 11:43] VITALS: BP 90/53; PULSE 60; RESP 20; O2SAT 97
[2025-09-19 11:53] VITALS: BP 100/60; PULSE 60; RESP 20; O2SAT 100
[2025-09-19 12:03] VITALS: BP 111/68; PULSE 55; RESP 20; O2SAT 100
== END 2025-09-19 12:11 | disposition home or self-care (01) ==
PROVIDERS: PCP Internal Medicine; Visit Provider Surgery
PROC: 0DJD8ZZ Inspection of Lower Intestinal Tract, Via Natural or Artificial Opening Endoscopic (ICD-10-PCS; CPT 45378; principal; 2025-09-19 11:00)
DX: K92.1 Melena (principal); D12.3 Benign neoplasm of transverse colon; K57.30 Diverticulosis of large intestine without perforation or abscess without bleeding; K64.8 Other hemorrhoids; Z79.85 Long-term (current) use of injectable non-insulin antidiabetic drugs; E66.9 Obesity, unspecified; Z68.39 Body mass index [BMI] 39.0-39.9, adult
CPT/HCPCS: 45380; 82948; 88305; J2704; J7120